=== PATIENT | male | born 1965 | race Caucasian/White ===

== ENCOUNTER 2020-01-31 16:56 | Observation (INO) | payer SELFPAY ==
[2020-01-31 16:57] VITALS: BP 101/66; PULSE 72; RESP 18; TEMP 36.4; O2SAT 98; BMI 25.7
--- NOTE | 2020-01-31 17:10 | PC.NURSE ---
When leaving triage, he told certified paralegal again that he needs a bed right now that nurse was supposed to be finding a bed for him now.
--- NOTE | 2020-01-31 17:25 | XR_ITS ---
WS: [id number] Portable AP upright chest, 01/31/2020 Clinical Data: chest pain Comparison: None. Findings: No nodules, masses or effusions are seen. The heart is normal. The pulmonary vascularity is not increased. No pneumonia or pneumothorax is seen. XR/XR chest 1V portable [id number] Impression: Negative chest.
--- NOTE | 2020-01-31 17:25 | ECG_ITS ---
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 Measurements Intervals [place] Rate: 135 P: [place]: -1 QRS: 72 QRSD: 96 T: 77 QT: 266 QTc: 399 Interpretive Statements ATRIAL FIBRILLATION WITH RAPID VENTRICULAR RESPONSE ABNORMAL RHYTHM ECG No previous ECG available for comparison Electronically Signed On 02-01-2020 19:18:27 CDT by Sally Israel M.D. [email or web address] [email or web address] memorial hospitalChubbies Shortstrihealth [facility].[employer]/store/OM/[id number]
--- NOTE | 2020-01-31 17:45 | ED_ITS ---
HPI - General Adult General: Chief complaint: Nausea/Vomiting/Diarrhea Stated complaint: n/v Time Seen by Provider: 01/31/20 17:44 Source: patient Mode of arrival: ambulatory Limitations: no limitations History of Present Illness: HPI narrative: Patient is a nice 54-year-old male who presents to ED today with a complaint of feeling sweaty, nauseous, and pre- syncopal over the past few days. Patient tells me on Friday he was outside in the heat for a long period of time so when his symptoms began on Friday he initially attributed it to dehydration. Patient states over the weekend anytime he would try to stand up and walk he would become very pre-syncopal (very dizzy/lightheaded/tunnel vision) and have to sit back down. Patient does tell me last night he felt like he had a racing heart rate. Patient has no known past medical history. He takes no prescription medications however does take supplements. Patient has no known cardiac history/history of arrhythmias. Patient denies chest pain, shortness of breath, difficulty breathing. He has not noticed any lower extremity edema, orthopnea, or PND. PCP is Dr. Hillman. Onset (ago): day(s) Associated symptoms: Reports palpitations; Deny chest pain, dyspnea, headache(s), malaise, nausea, rash, syncope or vomiting Review of Systems Const: Denies: fever(s), chills, body aches, fatigue or malaise Eyes: Denies: change in vision, blurry vision, photophobia, floaters or seeing flashes Card: Reports: palpitations, lightheadedness and pre-syncope; Denies: chest pain, irregular heart rhythm, edema, swelling of feet/ankles, syncope, dyspnea on exertion, orthopnea, leg pain with exertion or acrocyanosis Resp: Denies: dyspnea, productive cough, non-productive cough, pain on inspiration, hemoptysis or chest congestion GI: Denies: abdominal pain, nausea, vomiting, heartburn or diarrhea : Denies: flank pain, difficulty urinating, dysuria, urinary frequency, urinary urgency or urinary hesitancy Musc: Denies: neck pain, back pain, extremity pain, extremity swelling or joint pain Skin/Breast: Denies: rash Neuro: Reports: dizziness (upon standing ); Denies: headache(s), numbness in extremities, weakness in extremities or sensory changes PFSH ED PFSH: Social History (Updated 01/31/20 @ 15:04 by Gracia Soto LPN) Smoking and tobacco status: never smoked Alcohol intake: never Physical Exam Const: COMMON NORMALS: no acute distress, average body habitus, patient oriented x3, no limitations, healthy appearing, alert and well nourished ORIENTATION/CONSCIOUSNESS: Yes oriented to person and Yes oriented to place HENMT: COMMON NORMALS: normocephalic and atraumatic HEAD & SCALP: normocephalic and atraumatic Neck/C-Spine: COMMON NORMALS: full ROM, no lymphadenopathy and no meningeal signs Chest: COMMONS NORMALS: normal inspection of the chest and normal palpation of the breasts Resp: COMMON NORMALS: normal respiratory effort Cardio: RATE: tachycardic RHYTHM: abnormal rhythm irregularly irregular GI: COMMON NORMALS: Normal to inspection, nondistended, normoactive bowel sounds present, Soft to palpation, non-tender, No hepatosplenomegaly present and no masses PALPATION: Yes Soft to palpation and Yes No hepatosplenomegaly present Extremity: COMMON NORMALS: normal to inspection, capillary refill normal, no clubbing, cyanosis or edema, no calf tenderness and no pedal edema Neuro: YOVANNY COMA SCALE: document GCS findings Yovanny coma scale eye opening: Spontaneous Yovanny coma scale verbal response: Orientated Yovanny coma scale motor response: Obey commands [place] coma scale total score: 15 COMMON NORMALS: patient oriented x3, CN's II-XII intact bilaterally, moves all extremities, no focal motor deficits, no sensory deficits noted and gait normal SENSORIUM/ORIENTATION: Yes alert, Yes oriented to person and Yes oriented to place MENINGEAL SIGNS: Yes no meningeal signs Skin: COMMON NORMALS: no rashes or lesions noted GENERAL SKIN EXAM: no rashes or lesions noted Course Consultations: Consultation #1: Dr. Villa-accepts patient Vital Signs: Vital signs: Vital Signs Temperature 97.6 F 01/31/20 16:57 Pulse Rate 102 H 01/31/20 19:55 Respiratory Rate 14 01/31/20 19:55 Blood Pressure 96/73 01/31/20 19:55 Pulse Oximetry 96 01/31/20 19:55 MDM - General Adult MDM Narrative: Medical decision making narrative: Patient arrives in atrial fibrillation with RVR with a rate of 135. He was given 10 mg IV Cardizem and converted to normal sinus. We got patient up and ambulated him to the restroom and he immediately began feeling dizzy, weak, nauseous again. Patient's initial troponin is 44 with a negative delta. TSH is mildly elevated at 5.25. He is given elevated d-dimer at 1.99-spoke to hospitalist who would like CTA chest. Liver enzymes are mildly elevated. Unknown if possibly some of patient's supplements could be causing him to have new onset arrhythmia. I have spoken to Dr. Villa who will accept patient. Dr. Adames also has seen patient and agrees with work-up and plan today. Lab Data: Labs: Lab Results 01/31/20 01/31/20 01/31/20 Range/Units 17:35 17:35 17:53 WBC 3.2 L (4.0-10.0) 10^3/ uL RBC 5.74 H (4.1-5.3) 10^6/u L Hgb 17.3 H (11.7-16.6) g/dL Hct 50.9 (42.0-52.0) % MCV 88.7 (80-94) fL MCH 30.1 (28.0-34.0) pg MCHC 34.0 (30.0-36.0) g/dL RDW 12.2 (12.1-15.1) % Plt Count 148 (130-400) 10^3/c mm MPV 10.7 H (7.4-10.4) fL Neut % (Auto) 61.7 % Lymph % (Auto) 24.7 % [place] % (Auto) 13.0 % Eos % (Auto) 0.0 % Baso % (Auto) 0.6 % Neut # (Auto) 1.95 (1.8-7.7) 10^3/u L Lymph # (Auto) 0.8 (0.8-4.8) 10^3/u L [place] # (Auto) 0.4 (0.2-0.9) 10^3/u L Eos # (Auto) 0.0 (0.0-0.8) 10^3/u L Baso # (Auto) 0.0 (0.0-0.1) 10^3/u L Nucleated RBC % (a uto) 0 % Nucleated RBCs # 0.0 /100WBC D-Dimer (0-0.59) ug/mIFE U Sodium 133 L (136-145) mmol/L Potassium 4.0 (3.5-5.1) mmol/L Chloride 96 L (98-107) mmol/L Carbon Dioxide 23 (22-29) mmol/L Anion Gap 18.0 (5-19) BUN 19 (6-20) mg/dL Creatinine 0.9 (0.7-1.2) mg/dL GFR Calculation 87.9 L (90-130) mL/min Glucose 117 H (65-115) mg/dL Calculated Osmolal ity 274 L (285-295) mOsm/k g Calcium 9.5 (8.5-10.5) mg/dL Total Bilirubin 0.5 (0.15-1.2) mg/dL AST 49 H (0-40) U/L ALT 60 H (0-41) U/L Alkaline Phosphata se 71 (40-130) IU/L Troponin T Baselin e 44 H (0-15) ng/L Troponin T 120 Min [place] (0-15) ng/L Delta Troponin T (0-10) ABS# Total Protein 7.1 (6.6-8.7) g/dL Albumin 4.3 (3.5-5.2) g/dL Globulin 2.8 (1.3-4.6) g/dL Lipase 36 (13-60) U/L TSH (0.27-4.20) uIU/ mL Urine Color (Yellow) Urine Appearance (CLEAR) Urine pH (5-7) Ur Specific Gravit y (1.005-1.030) Urine Protein (Negative) Urine Glucose (UA) (Normal) Urine Ketones (Negative) Urine Blood (Negative) Urine Nitrate (Negative) Urine Bilirubin (NEGATIVE) Urine Urobilinogen (Negative) mg/dL Ur Leukocyte Mayra ase (Negative) Urine Opiates Scre en (Negative) ng/mL Ur Barbiturates Sc reen (Negative) ng/mL Ur Phencyclidine S crn (Negative) ng/mL Ur Amphetamines Sc reen (Negative) ng/mL U Benzodiazepines Scrn (Negative) ng/mL Urine Cocaine Scre en (Negative) ng/mL U Marijuana (THC) Screen (Negative) ng/mL 01/31/20 01/31/20 01/31/20 Range/Units 17:53 17:53 19:12 WBC (4.0-10.0) 10^3/ uL RBC (4.1-5.3) 10^6/u L Hgb (11.7-16.6) g/dL Hct (42.0-52.0) % MCV (80-94) fL MCH (28.0-34.0) pg MCHC (30.0-36.0) g/dL RDW (12.1-15.1) % Plt Count (130-400) 10^3/c mm MPV (7.4-10.4) fL Neut % (Auto) % Lymph % (Auto) % [place] % (Auto) % Eos % (Auto) % Baso % (Auto) % Neut # (Auto) (1.8-7.7) 10^3/u L Lymph # (Auto) (0.8-4.8) 10^3/u L [place] # (Auto) (0.2-0.9) 10^3/u L Eos # (Auto) (0.0-0.8) 10^3/u L Baso # (Auto) (0.0-0.1) 10^3/u L Nucleated RBC % (a uto) % Nucleated RBCs # /100WBC D-Dimer 1.99 H (0-0.59) ug/mIFE U Sodium (136-145) mmol/L Potassium (3.5-5.1) mmol/L Chloride (98-107) mmol/L Carbon Dioxide (22-29) mmol/L Anion Gap (5-19) BUN (6-20) mg/dL Creatinine (0.7-1.2) mg/dL GFR Calculation (90-130) mL/min Glucose (65-115) mg/dL Calculated Osmolal ity (285-295) mOsm/k g Calcium (8.5-10.5) mg/dL Total Bilirubin (0.15-1.2) mg/dL AST (0-40) U/L ALT (0-41) U/L Alkaline Phosphata se (40-130) IU/L Troponin T Baselin e (0-15) ng/L Troponin T 120 Min [place] (0-15) ng/L Delta Troponin T (0-10) ABS# Total Protein (6.6-8.7) g/dL Albumin (3.5-5.2) g/dL Globulin (1.3-4.6) g/dL Lipase (13-60) U/L TSH 5.25 H (0.27-4.20) uIU/ mL Urine Color Yellow (Yellow) Urine Appearance Clear (CLEAR) Urine pH 5 (5-7) Ur Specific Gravit y 1.025 (1.005-1.030) Urine Protein Neg (Negative) Urine Glucose (UA) Norm (Normal) Urine Ketones 2+ H (Negative) Urine Blood Neg (Negative) Urine Nitrate Negative (Negative) Urine Bilirubin Neg (NEGATIVE) Urine Urobilinogen Neg (Negative) mg/dL Ur Leukocyte Mayra ase Negative (Negative) Urine Opiates Scre en (Negative) ng/mL Ur Barbiturates Sc reen (Negative) ng/mL Ur Phencyclidine S crn (Negative) ng/mL Ur Amphetamines Sc reen (Negative) ng/mL U Benzodiazepines Scrn (Negative) ng/mL Urine Cocaine Scre en (Negative) ng/mL U Marijuana (THC) Screen (Negative) ng/mL 01/31/20 01/31/20 Range/Units 19:12 19:48 WBC (4.0-10.0) 10^3/ uL RBC (4.1-5.3) 10^6/u L Hgb (11.7-16.6) g/dL Hct (42.0-52.0) % MCV (80-94) fL MCH (28.0-34.0) pg MCHC (30.0-36.0) g/dL RDW (12.1-15.1) % Plt Count (130-400) 10^3/c mm MPV (7.4-10.4) fL Neut % (Auto) % Lymph % (Auto) % [place] % (Auto) % Eos % (Auto) % Baso % (Auto) % Neut # (Auto) (1.8-7.7) 10^3/u L Lymph # (Auto) (0.8-4.8) 10^3/u L [place] # (Auto) (0.2-0.9) 10^3/u L Eos # (Auto) (0.0-0.8) 10^3/u L Baso # (Auto) (0.0-0.1) 10^3/u L Nucleated RBC % (a uto) % Nucleated RBCs # /100WBC D-Dimer (0-0.59) ug/mIFE U Sodium (136-145) mmol/L Potassium (3.5-5.1) mmol/L Chloride (98-107) mmol/L Carbon Dioxide (22-29) mmol/L Anion Gap (5-19) BUN (6-20) mg/dL Creatinine (0.7-1.2) mg/dL GFR Calculation (90-130) mL/min Glucose (65-115) mg/dL Calculated Osmolal ity (285-295) mOsm/k g Calcium (8.5-10.5) mg/dL Total Bilirubin (0.15-1.2) mg/dL AST (0-40) U/L ALT (0-41) U/L Alkaline Phosphata se (40-130) IU/L Troponin T Baselin e (0-15) ng/L Troponin T 120 Min [place] 37.33 H (0-15) ng/L Delta Troponin T -6.67 L (0-10) ABS# Total Protein (6.6-8.7) g/dL Albumin (3.5-5.2) g/dL Globulin (1.3-4.6) g/dL Lipase (13-60) U/L TSH (0.27-4.20) uIU/ mL Urine Color (Yellow) Urine Appearance (CLEAR) Urine pH (5-7) Ur Specific Gravit y (1.005-1.030) Urine Protein (Negative) Urine Glucose (UA) (Normal) Urine Ketones (Negative) Urine Blood (Negative) Urine Nitrate (Negative) Urine Bilirubin (NEGATIVE) Urine Urobilinogen (Negative) mg/dL Ur Leukocyte Mayra ase (Negative) Urine Opiates Scre en Negative (Negative) ng/mL Ur Barbiturates Sc reen Negative (Negative) ng/mL Ur Phencyclidine S crn Negative (Negative) ng/mL Ur Amphetamines Sc reen Negative (Negative) ng/mL U Benzodiazepines Scrn Negative (Negative) ng/mL Urine Cocaine Scre en Negative (Negative) ng/mL U Marijuana (THC) Screen Negative (Negative) ng/mL Discharge Plan Discharge Patient Disposition: Admitted As Inpatient Admit Provider: Jeremiah Villa Clinical Impression: New onset atrial fibrillation, Atrial fibrillation with rapid ventricular response, Elevated LFTs, Elevated troponin Condition: Stable Coding Level of Care Code ED Purchasing Administrative Assistant for Chg Fwd Exam Comprehensive
[2020-01-31 17:49] LABS: Basophils % 0.6 %; Hematocrit 50.9 % (42.0-52.0); Hemoglobin 17.3 g/dL (11.7-16.6); Lymphocytes # 0.8 10^3/uL (0.8-4.8); Lymphocytes % 24.7 %; Mean Corpuscular Hemoglobin 30.1 pg (28.0-34.0); Mean Corpuscular Volume 88.7 fL (80-94); Mean Platelet Volume 10.7 fL (7.4-10.4); Monocytes # 0.4 10^3/uL (0.2-0.9); Neutrophils # 1.95 10^3/uL (1.8-7.7); Neutrophils % 61.7 %; Nucleated Red Blood Cells % 0 %; Platelet Count 148 10^3/cmm (130-400); Red Blood Count 5.74 10^6/uL (4.1-5.3); Red Cell Distribution Width 12.2 % (12.1-15.1); White Blood Count 3.2 10^3/uL (4.0-10.0)
--- NOTE | 2020-01-31 17:53 | ECG_ITS ---
[facility] Test Date: 2020-02-01 Pat Name: Wong Alvarez Department: Room: 101 Gender: Male Unit Control Clerk: BEAU GILB: 1965 Requested By: Frances Ramsey Order Number: [id number] Shanna MD: Sally Israel M.D. Measurements Intervals [place] Rate: 98 P: 51 [place]: 165 QRS: 67 QRSD: 101 T: 71 QT: 318 QTc: 408 Interpretive Statements SINUS RHYTHM Compared to ECG 01/31/2020 19:33:39 Sinus tachycardia no longer present Electronically Signed On 02-01-2020 19:16:53 CDT by Sally Israel M.D. [email or web address].[facility]oo[facility] regional medical centerNew Horizons Entertainmentaultman alliance [facility].[employer]/store/OM/[id number]
[2020-01-31 18:02] VITALS: BP 107/73; PULSE 122; RESP 16; O2SAT 97
[2020-01-31 18:02] LABS: Alanine Aminotransferase 60 U/L (0-41); Albumin Level 4.3 g/dL (3.5-5.2); Alkaline Phosphatase 71 IU/L (40-130); Aspartate Amino Transferase 49 U/L (0-40); Blood Urea Nitrogen 19 mg/dL (6-20); Calcium 9.5 mg/dL (8.5-10.5); Carbon Dioxide 23 mmol/L (22-29); Chloride 96 mmol/L (98-107); Globulin 2.8 g/dL (1.3-4.6); Glomerular Filtration Rate 87.9 mL/min (90-130); Glucose 117 mg/dL (65-115); Lipase 36 U/L (13-60); Osmolality Calculated 274 mOsm/kg (285-295); Sodium 133 mmol/L (136-145); Total Bilirubin 0.5 mg/dL (0.15-1.2); Total Protein 7.1 g/dL (6.6-8.7)
[2020-01-31 18:29] LABS: Thyroid Stimulating Hormone 5.25 uIU/mL (0.27-4.20)
[2020-01-31 18:51] LABS: Troponin(5th) Baseline 44 ng/L (0-15)
--- NOTE | 2020-01-31 18:51 | PC.NURSE ---
Read and agree with assessment
[2020-01-31 19:29] LABS: Add Urine Microscopic? NO
[2020-01-31 19:51] LABS: Bilirubin Urine Neg (NEGATIVE); Blood Urine Neg (Negative); Glucose Urine UA Norm (Normal); Ketones Urine 2+ (Negative); Leukocyte Esterase Urine Negative (Negative); Nitrate Urine Negative (Negative); Protein Urine Neg (Negative); Specific Gravity, Urine 1.025 (1.005-1.030); Urine Appearance Clear (CLEAR); Urine Color Yellow (Yellow); Urobilinogen Urine Neg (Negative); pH Urine 5 (5-7)
--- NOTE | 2020-01-31 19:53 | ECG_ITS ---
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 Measurements Intervals [place] Rate: 100 P: 58 RI: 142 QRS: 74 QRSD: 100 T: 76 QT: 316 QTc: 408 Interpretive Statements SINUS TACHYCARDIA ABNORMAL RHYTHM ECG Compared to ECG 01/31/2020 17:51:07 Atrial fibrillation no longer present Electronically Signed On 02-01-2020 19:18:38 CDT by Sally Israel M.D. [email or web address] beachwood medical centerPagaTuAlquiler/store/OM/[id number]
[2020-01-31 19:55] VITALS: BP 96/73; PULSE 102; RESP 14; O2SAT 96
[2020-01-31 20:03] LABS: Amphetamines Screen Urine Negative (Negative); Barbiturates Screen Urine Negative (Negative); Benzodiazepines Screen Urine Negative (Negative); Cocaine Screen Urine Negative (Negative); Opiate Screen Urine Negative (Negative); PCP Screen Urine Negative (Negative); THC Screen Urine Negative (Negative)
[2020-01-31 20:16] LABS: Troponin 5 2HR 37.33 ng/L (0-15)
[2020-01-31 20:27] LABS: D Dimer 1.99 ug/mIFEU (0-0.59)
--- NOTE | 2020-01-31 20:29 | CTR_ITS ---
PROCEDURE INFORMATION: Exam: CT Angiography Chest With Contrast Exam date and time: 01/31/2020 9:06 PM Age: 54 years old Clinical indication: Abnormal findings; Abnormal diagnostic tests; Elevated d-dimer; Additional info: Palps, positive d-dimer TECHNIQUE: Imaging protocol: Computed tomographic angiography of the chest with intravenous contrast. 3D rendering: MIP and/or 3D reconstructed images were created by the technologist. Radiation optimization: All CT scans at this facility use at least one of these dose optimization techniques: automated exposure control; mA and/or kV adjustment per patient size (includes targeted exams where dose is matched to clinical indication); or iterative reconstruction. Contrast material: OMNI 350; Contrast volume: 77 ml; Contrast route: INTRAVENOUS (IV); COMPARISON: CR XR chest 1V portable [id number] 01/31/2020 6:00 PM RADIATION DOSE METRICS: Total DLP (mGy-cm): 628.74 FINDINGS: Pulmonary arteries: Normal. No pulmonary emboli. Aorta: Unremarkable. No aortic aneurysm. No aortic dissection. Thyroid: There is a 4.5 cm hypodense nodule in the right thyroid lobe. Lungs: Unremarkable. No consolidation. No masses. Pleural space: Unremarkable. No pneumothorax. No pleural effusion. Heart: Unremarkable. No cardiomegaly. No pericardial effusion. Lymph nodes: Unremarkable. No enlarged lymph nodes. Bones/joints: Unremarkable. No acute fracture. Soft tissues: Unremarkable. CT/CT angio chest PE protcl [id number] IMPRESSION: 1. No acute findings. 2. There is a 4.5 cm hypodense nodule in the right thyroid lobe. Evaluate with elective thyroid ultrasound. COMMENTS: Consistent with the [place] [employer]'s Incidental Findings Committee white paper (J Am Parminder Radiol 2015): In patients aged 35 years and older with an incidental thyroid nodule equal to or greater than 1.[address], MRI or extrathyroidal US, further evaluation with dedicated thyroid US is recommended for patients with normal life expectancy and without comorbidities. For smaller nodules without suspicious features, no further evaluation or follow up is recommended. Radiation Dose CTDIVOL = (mGy): DLP = 628.74 (mGy-cm)
[2020-01-31 20:46] LABS: Troponin 5 2HR Delta -6.67 ABS# (0-10)
[2020-01-31] MEDS: iohexol 350 mg/mL 100 mL Btl IV (21:16)
--- NOTE | 2020-01-31 22:29 | PM.HP ---
Providers/Chief Complaint Admitting Physician: Jeremiah Villa Chief Complaint: n/v History of Present Illness Wong Alvarez is a 54 year old gentleman without significant past medical history, who is been working outside quite a bit in the sun, reports he started feeling unwell on Friday, with nausea, chills, sweats, fatigue, generalized aches, felt like he was running a fever, but says none of the thermometers at his home works, so cannot measured a temperature. He reports that on Friday he started having heart racing episodes. Reports that he has history of this occasionally happening in the past, but not persistent. With this he had some mild chest discomfort. In ER he is found to be in atrial flutter, initially 120s-130s, after 10 mg of Cardizem heart rates improved down to low 100s. No chest pain at this time. This is new onset formally diagnosed atrial flutter. Troponin T baseline 44, 2-hour 37.33. EKG otherwise without suspicion of acute NV. He reports his been having sweats, especially somehow triggered by Tylenol. Has not had good appetite due to nausea. Denies taking any ibuprofen. Apart from this is been at baseline state of health, although did get injury from being kicked by a cow in his right thigh subsequently developing a substantial bruise. No wounds or ulcerations. This has been resolving. D-dimer noted elevated in ER. With new onset A. fib, was assessed by CTA without finding of PE, but incidentally noted 4.5 cm nodule in the right thyroid lobe. Otherwise he appears with leukopenia, WBC 3.2, mild hyponatremia 133, normal kalemia, mild liver parameter abnormality AST 49, ALT 60, without known history of liver disease. TSH noted mildly elevated at 5.25. Otherwise no suggestion of infection related pulmonary changes or UTI on UA. He denies having any rashes, but does report having had a number of tick bites recently. He lives at home with his . She has not been ill. Review of Systems Const: Reports: chills, body aches, malaise and night sweats; Denies: fever(s) Eyes: Denies: change in vision or eye redness ENMT: Denies: throat pain, oral sores or ear or mastoid pain Card: Reports: palpitations, irregular heart rhythm and lightheadedness; Denies: chest pain, edema, pre-syncope or dyspnea on exertion Resp: Denies: dyspnea, productive cough, change in phlegm color or hemoptysis GI: Reports: nausea; Denies: abdominal pain, vomiting, diarrhea, constipation, hematochezia or melena : Denies: flank pain, difficulty urinating, urinary frequency or hematuria Musc: Denies: back pain, joint swelling or joint redness Skin/Breast: Denies: rash, sores or new lesions Neuro: Denies: headache(s), numbness in extremities, weakness in extremities, dizziness, confusion or seizure-like activity Endo: Denies: polyuria or polydipsia Khai/Lymph: Denies: easy bleeding or purpura All/Imm: Denies: urticaria, throat swelling or tongue swelling Medications/Allergies Home Medications Medication Instructions Recorded Confirmed Last Taken Type Calcium 500 3 tab PO DAILY 01/31/20 01/31/20 Unknown History Horny Goat [place] 1 tab PO DAILY 01/31/20 01/31/20 Unknown History Tylenol Extra Strength 2 tab PO PRN 01/31/20 01/31/20 01/30/20 History multivitamin [Multiple Vitamins] 2 tab PO DAILY 01/31/20 01/31/20 Unknown History turmeric 800 mg PO DAILY 01/31/20 01/31/20 Unknown History Allergies Allergy/AdvReac Type Severity Reaction Status Date / Time No Known Allergies Allergy Verified 01/31/20 18:06 PFSH Acute PFSH: Surgical History History of appendectomy Family History Father Arrhythmia Social History Smoking and tobacco status: never smoked Alcohol intake: never Substance/Drug Use: never Lives independently: Yes Household members: spouse Marital status: Current occupational status: employed Vitals/I&O/Wt Last Vital Signs Temp 97.6 F 01/31/20 16:57 Pulse 102 H 01/31/20 19:55 Resp 14 01/31/20 19:55 BP 96/73 01/31/20 19:55 Pulse Ox 96 01/31/20 19:55 Weight last 48 hrs Weight 90.718 kg Physical Exam Const: COMMON NORMALS: no acute distress and patient oriented x3 HENMT: COMMON NORMALS: oropharynx normal Neck/C-Spine: COMMON NORMALS: no JVD Resp: COMMON NORMALS: normal respiratory effort and clear to auscultation bilaterally AUSCULTATION: clear to auscultation bilaterally Cardio: COMMON NORMALS: no JVD, regular rhythm, S1 normal heart sound present, S2 normal heart sound present and No murmurs present (Cardio) RATE: tachycardic RHYTHM: regular rhythm HEART SOUNDS: S1 normal heart sound present and S2 normal heart sound present GI: COMMON NORMALS: Normal to inspection, nondistended, normoactive bowel sounds present, Soft to palpation and non-tender PALPATION: Yes Soft to palpation Extremity: COMMON NORMALS: no joint enlargement and no pedal edema Neuro: COMMON NORMALS: patient oriented x3 and moves all extremities Skin: COMMON NORMALS: no rashes or lesions noted GENERAL SKIN EXAM: no rashes or lesions noted Data : 01/31/20 17:35 01/31/20 17:35 A&P Assessment and plan (1) New onset atrial fibrillation: With palpitations described as heart racing starting on Friday after malaise starting on Friday. He reports some history of on and off palpitations in the past, but never formal diagnosis of atrial flutter or fibrillation. Heart rate improved in ER with Cardizem, although blood pressure soft. For now we will start him on 12.5 mg metoprolol twice a day. Discussed also with him risk of CVA secondary to atrial flutter. Overall his risk is not particularly high, and so he is at this time interested in starting aspirin. Encouraged him to discuss again with his primary care provider. At this time monitor on telemetry. There appears to possibly be some thyroid dysfunction as well, with also incidentally noted thyroid nodule. Will add free T3 and T4. Assess TTE. Discussed with him given new onset atrial fibrillation may also benefit from additional assessment for coronary artery disease. So far no suggestion of acute NV. Mild elevation of troponin suspected secondary to atrial fibrillation, but will follow-up complete series to rule out NV. Status: Acute (2) Night sweats: With malaise, reports profuse sweating, especially after Tylenol. Reports he felt like he was having a fever, but was not able to measure it. Reports recently multiple tick bites. Also with transaminitis, hyponatremia. Denies seeing a rash. With history of tick bites will request for tick panel. Discussed with him due to transaminitis will empirically start on doxycycline at this time to which he is agreeable. Secondary to also concomitant fatigue, muscle aches, suspected fever will request testing for COVID-19. Status: Acute (3) Fatigue: As above. We will also request orthostatic blood pressures as he is reported to have more symptoms while trying to get up and walk. Status: Acute (4) Muscle ache: As above. In addition to tick panel, will check rapid flu, COVID-19. Status: Acute (5) Tick bite: Reports history of multiple tick bites. 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 Denies specifically seeing a rash. As above. Recently with malaise, sweats, fatigue, noted with transaminitis, mild leukopenia, hyponatremia. Tick panel sent. Empirically at this time discussed as discussed with him start on doxycycline. Status: Acute (6) Leukopenia: Mild leukopenia, WBC 3.2. As above. Concern for possible tickborne illness. Sent tick panel. Empirically started on doxycycline at this time. Monitor counts. Status: Acute (7) Transaminitis: Mild. As above. Status: Acute (8) Elevated troponin: He has had no chest pain or pressure. No shortness of breath. This is suspected to be mild elevation secondary to arrhythmia. So far without a peak. Follow-up complete troponin EKG series to rule out acute NV. Started aspirin. Will assess lipid profile. A1c. With new onset atrial fibrillation may benefit from additional assessment by stress testing on nonemergent basis. Status: Acute Attestations Medical Necessity Statement*: Place in observation. 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
[2020-01-31] MEDS: metoprolol tartrate 25 mg Tablet 12.5 MG PO (23:33)
[2020-01-31 23:36] VITALS: BP 144/70; PULSE 102; RESP 18; O2SAT 98
[2020-01-31 23:42] VITALS: BP 134/89; PULSE 103; RESP 18; TEMP 37.4; O2SAT 99
[2020-01-31 23:44] VITALS: BP 130/84; PULSE 101; RESP 14; TEMP 37.6; O2SAT 96
[2020-02-01] VITALS (8 sets, daily range): BP systolic 104–144; BP diastolic 70–85; PULSE 87–110; RESP 16–97; TEMP 36.7–37.9; O2SAT 94–100
[2020-02-01 00:04] LABS: Troponin 5 6HR 39.27 ng/L (0-15)
--- NOTE | 2020-02-01 00:06 | USCV_ITS ---
Wong Alvarez Age: 54 Gender: M : 1965 Exam Date: 02/01/2020 10:10 Ordering Phys: Jeremiah Villa MD Technologist: Tierra Rubio Exam Location: [facility] [place] Indication: new onset a fib BP: 118 / 76 HR: 122 Rhythm: Atrial fibrillation Technical Quality: Adequate MEASUREMENTS (Male / Female) Normal Values 2D ECHO LV Diastolic Diameter PLAX 4.5 cm 4.2 - 5.9 / 3.9 - 5.3 cm LV Systolic Diameter PLAX 2.6 cm IVS Diastolic Thickness 1.3 cm 0.6 - 1.0 / 0.6 - 0.9 cm IVS Systolic Thickness 1.6 cm LVPW Diastolic Thickness 1.2 cm 0.6 - 1.0 / 0.6 - 0.9 cm LVPW Systolic Thickness 2.1 cm LVOT Diameter 2.0 cm LV Ejection Fraction 2D Teich 71.5 % LV Ejection Fraction MOD 2C 73.8 % LV Ejection Fraction 2C AL 74.9 % LA Diameter 3.4 cm LA Width 3.2 cm LA Height 4.9 cm RA Width 4.4 cm RA Height 4.8 cm M-MODE LV Diastolic Diameter MM 5.1 cm 4.2 - 5.9 / 3.9 - 5.3 cm LV Systolic Diameter MM 3.3 cm LV Ejection Fraction MM Teich 63.3 % IVS Diastolic Thickness MM 1.3 cm 0.6 - 1.0 / 0.6 - 0.9 cm IVS Systolic Thickness MM 1.5 cm LVPW Diastolic Thickness MM 1.3 cm 0.6 - 1.0 / 0.6 - 0.9 cm LVPW Systolic Thickness MM 2.3 cm Aortic Annulus Diameter 3.6 cm LA Ao Ratio MM 0.9 MV E Point Septal Separation 0.8 cm DOPPLER AV Peak Velocity 129.0 cm/s LVOT Peak Velocity 113.0 cm/s AV Area Cont Eq vti 3.0 cm squared AV Area Cont Eq pk 2.8 cm squared MV Peak Velocity 81.0 cm/s MV Area PHT 4.6 cm squared Mitral E to A Ratio 1.6 MV E' Velocity 9.0 cm/s Mitral E to MV E' Ratio 9.4 Mitral E to LV E' Lateral Ratio 8.7 Mitral E to LV E' Septal Ratio 10.4 TR Peak Velocity 269.0 cm/s TR Peak Gradient 28.9 mmHg Right Atrial Pressure 3.0 mmHg Pulmonary Artery Systolic Pressu 31.9 mmHg PV Peak Velocity 113.0 cm/s RV Acceleration Time 0.1 s FINDINGS Left Ventricle Normal left ventricular size, systolic function and wall thickness, with no regional wall motion abnormalities. Left ventricular ejection fraction is estimated at 61 %. Normal diastolic function. Right Ventricle Normal right ventricular size and systolic function. Right ventricular systolic pressure 31.9 mmHg. Right Atrium Normal right atrial size. Right atrial pressure estimated at 3 mmHg. Left Atrium Normal left atrial size. Mitral Valve Structurally normal mitral valve. No mitral valve stenosis. Trace mitral valve regurgitation. Aortic Valve Aortic valve not well visualized. Mildly thickened aortic valve. No aortic stenosis. No aortic valve regurgitation. Tricuspid Valve Structurally normal tricuspid valve. Trace to mild tricuspid valve regurgitation. Pulmonic Valve Pulmonic valve not well visualized. No pulmonary valve stenosis. Pericardium No pericardial effusion. Aorta Normal sized aortic root. CONCLUSIONS 1. Normal left ventricular size, systolic function and wall thickness, with no regional wall motion abnormalities. Left ventricular ejection fraction is estimated at 61 %. Normal diastolic function. 2. Normal right ventricular size and systolic function. 3. Trace to mild tricuspid valve regurgitation. 4. No prior similar studies to compare. Asya Ferro MD (Electronically Signed) Final Date: 01 February 2020 18:17 S
[2020-02-01 00:08] LABS: Troponin 5 6HR Delta -4.73 ng/L (0-12)
[2020-02-01 00:17] LABS: Influenza A by IFA Negative (Negative); Influenza B by IFA Negative (Negative)
[2020-02-01 00:50] LABS: Estmated Average Glucose 117; Hemoglobin A1C 5.7 % (4.0-6.0)
[2020-02-01] MEDS: heparin 5,000 unit/mL INJ 1 mL 5000 UNIT SUBCUT ×3 (00:54→17:00)
[2020-02-01] MEDS: doxycycline 100 MG in sodium chloride 0.9% (plus) 100 ML IV ×3 (00:54→22:38)
[2020-02-01] MEDS: sodium chloride 0.9% 1,000 ML 100 ML IV ×3 (00:55→22:38)
[2020-02-01 01:11] LABS: Free T4 Free Thyroxine 1.23 ng/dL (0.82-1.77); T3 Free 2.2 PG/ML (2.0-4.4)
[2020-02-01 01:22] LABS: Chol HDL Ratio 7.55 mg/dL (1.0-5.00); Cholesterol 249 mg/dL (0-200); HDL Cholesterol 33 mg/dL (60-100); LDL Cholesterol Calculated 177 mg/dL (50-129); LDL HDL Ratio 5.36 RATIO (0.00-3.22); Triglycerides 196 mg/dL (0-150)
--- NOTE | 2020-02-01 01:33 | PC.NURSE ---
PT ARRIVED TO ROOM 101. PT AMBULATED TO BED. PT WAS IN NSR. HR 98, BP 144/83, SPO2 96%, T 98.1. PT DENIES PAIN AT THIS TIME. PT DOES NOT EAT PORK PRODUCTS. WILL CONTINUE TO MONITOR.
[2020-02-01 04:34] LABS: Basophils % 0.3 %; Eosinophils % 0.3 %; Hematocrit 42.8 % (42.0-52.0); Hemoglobin 14.7 g/dL (11.7-16.6); Lymphocytes # 0.6 10^3/uL (0.8-4.8); Lymphocytes % 20.6 %; Mean Corpuscular HGB Conc 34.3 g/dL (30.0-36.0); Mean Corpuscular Hemoglobin 30.3 pg (28.0-34.0); Mean Corpuscular Volume 88.2 fL (80-94); Monocytes # 0.3 10^3/uL (0.2-0.9); Monocytes % 11.5 %; Neutrophils # 1.93 10^3/uL (1.8-7.7); Neutrophils % 67.3 %; Nucleated Red Blood Cells % 0 %; Platelet Count 124 10^3/cmm (130-400); Red Blood Count 4.85 10^6/uL (4.1-5.3); Red Cell Distribution Width 12.2 % (12.1-15.1); White Blood Count 2.9 10^3/uL (4.0-10.0)
[2020-02-01 04:49] LABS: Alanine Aminotransferase 52 U/L (0-41); Albumin Level 3.7 g/dL (3.5-5.2); Alkaline Phosphatase 63 IU/L (40-130); Anion Gap 13.5 (5-19); Aspartate Amino Transferase 47 U/L (0-40); Blood Urea Nitrogen 19 mg/dL (6-20); Calcium 8.3 mg/dL (8.5-10.5); Carbon Dioxide 23 mmol/L (22-29); Chloride 101 mmol/L (98-107); Globulin 2.3 g/dL (1.3-4.6); Glomerular Filtration Rate 117.5 mL/min (90-130); Glucose 116 mg/dL (65-115); Magnesium 1.9 mg/dL (1.7-2.3); Osmolality Calculated 275 mOsm/kg (285-295); Potassium 3.5 mmol/L (3.5-5.1); Sodium 134 mmol/L (136-145); Total Bilirubin 0.4 mg/dL (0.15-1.2)
[2020-02-01 05:47] LABS: Slide Review Slide Review Perform
--- NOTE | 2020-02-01 06:25 | PC.NURSE ---
PT IS IN PLEASANT MOOD. PT DENIES PAIN AT THIS TIME. WILL GIVE REPORT TO ON COMING NURSE.
[2020-02-01] MEDS: atorvastatin 40 mg Tablet PO (09:53)
[2020-02-01] MEDS: metoprolol tartrate 25 mg Tablet 12.5 MG PO ×2 (09:53→22:44)
[2020-02-01] MEDS: aspirin 325 mg Tablet PO (09:53)
--- NOTE | 2020-02-01 11:16 | PC.CHAP ---
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 visit [] Patient/Family/Request visit [] Outpatient visit [] Follow-up visit [] Physician referral [] Code/Alert [] Routine visit [] Staff referral [] Actively dying [] Patient sleeping [] Family support [] [] Out of room [] Palliative care [] [] Receiving care in room [] Pre-surgical visit [] Trauma [] Long length of stay [] ICU visit [x] Other: covid 19 Relational/Emotional Strength [] Patient feels connected with others/family/visitors/staff [] Distress [] Loneliness/isolation [] Abandonment Spirituality of Patient [] Person of Bobbi [] Attends Denominational of their Bobbi [] Believes in Prayer [] Reads Bible or Anabaptist materials [] There are Spiritual issues to be addressed 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 [] Prayer [] Active listening [] Non-anxious presence [] Spiritual/emotional support [] Crisis/trauma care [] Spiritual counseling [] Bereavement support [] Provided bereavement packet [] Provided Bible/devotional materials [] Provided toy/stuffed animal, coloring book to patient or family member [] Provided Communion [] Anointing/[place] [] Salvation [] Completed spiritual assessment [] Other: Impact on Illness or Injury [] Angry [] Fearful [] Anxious [] Often cries [] Exhaustion [] Unable to work [] Unable to attend taoist [] Unable to walk/stand [] Unable to read [] Unable to drive [] Unable to eat/drink [] Unable to sleep [] Unable to be with family [] Patient intubated [] Other: Summary covid 19 Time spent with patient 5 mins
--- NOTE | 2020-02-01 12:39 | PM.PN ---
Subjective Subjective: Interval history: This morning patient is wondering when he will go home, is wondering about his COVID-19 testing, no fevers, no chills, no shortness of breath, is feeling better, no lightheadedness, no dizziness, states that he frequently has tick bites, does not remember if he has had tick borne fever in the past, no recent travel, no exposure to COVID-19 Vitals/I&O/Wt Last Vital Signs Temp 99.4 F 02/01/20 07:07 Pulse 105 H 02/01/20 07:07 Resp 18 02/01/20 07:07 BP 118/76 02/01/20 07:07 Pulse Ox 97 02/01/20 07:07 01/31/20 02/01/20 02/01/20 22:59 06:59 14:59 Intake Total 100 / 100 1476.667 / 1476.667 Output Total 720 / 720 400 / 400 Balance -620 / -620 1076.667 / 1076.667 Weight last 48 hrs Weight 89.675 kg Weight 90.718 kg Physical Exam Const: COMMON NORMALS: no acute distress and patient oriented x3 HENMT: COMMON NORMALS: normocephalic HEAD & SCALP: normocephalic Neck/C-Spine: COMMON NORMALS: no JVD Resp: COMMON NORMALS: normal respiratory effort, No retractions, No use of accessory muscles and clear to auscultation bilaterally AUSCULTATION: clear to auscultation bilaterally Cardio: COMMON NORMALS: no JVD, regular rate, regular rhythm, S1 normal heart sound present and S2 normal heart sound present RATE: regular rate RHYTHM: regular rhythm HEART SOUNDS: S1 normal heart sound present and S2 normal heart sound present GI: COMMON NORMALS: Normal to inspection, nondistended, normoactive bowel sounds present, Soft to palpation, non-tender, No hepatosplenomegaly present, no masses and no bruits PALPATION: Yes Soft to palpation and Yes No hepatosplenomegaly present Extremity: COMMON NORMALS: capillary refill normal, no clubbing, cyanosis or edema, no calf tenderness and no pedal edema Neuro: COMMON NORMALS: patient oriented x3 Psych: COMMON NORMALS: mental status grossly normal Data : 02/01/20 04:07 02/01/20 04:07 A&P Assessment and plan (1) Tick-borne fever: -Symptoms and exposure sound a lot like trigger point fever -With transaminitis, leukopenia -There is concerns for COVID-19, COVID-19 pending, continue COVID-19 precautions -Currently on doxycycline, continue for 10 days -Tick panel sent Status: Acute (2) Right thyroid nodule: -Seems like cold nodule based on minimally elevated TSH, normal T3-T4 -We will do a thyroid ultrasound - will require outpatient follow-up for biopsy to evaluate for malignancy Status: Acute (3) New onset atrial fibrillation: -Currently normal sinus rhythm -Continue metoprolol 0.5 twice daily -Chads vasc, aspirin daily -We will order cardiac echocardiogram -The question is is is new onset atrial fibrillation related to obstructive CAD, will require cardiac stress testing as outpatient -Certainly on the other hand with his tickborne illness, exposure to take in the past, is possibly he could have Lyme cardiomyopathy, will await cardiac echocardiogram With palpitations described as heart racing starting on Friday after malaise starting on Friday. He reports some history of on and off palpitations in the past, but never formal diagnosis of atrial flutter or fibrillation. Heart rate improved in ER with Cardizem, although blood pressure soft. For now we will start him on 12.5 mg metoprolol twice a day. Discussed also with him risk of CVA secondary to atrial flutter. Overall his risk is not particularly high, and so he is at this time interested in starting aspirin. Encouraged him to discuss again with his primary care provider. At this time monitor on telemetry. There appears to possibly be some thyroid dysfunction as well, with also incidentally noted thyroid nodule. Will add free T3 and T4. Assess TTE. Discussed with him given new onset atrial fibrillation may also benefit from additional assessment for coronary artery disease. So far no suggestion of acute MD. Mild elevation of troponin suspected secondary to atrial fibrillation, but will follow-up complete series to rule out MD. Status: Acute (4) Night sweats: With malaise, reports profuse sweating, especially after Tylenol. Reports he felt like he was having a fever, but was not able to measure it. Reports recently multiple tick bites. Also with transaminitis, hyponatremia. Denies seeing a rash. With history of tick bites will request for tick panel. Discussed with him due to transaminitis will empirically start on doxycycline at this time to which he is agreeable. Secondary to also concomitant fatigue, muscle aches, suspected fever will request testing for COVID-19. Status: Acute (5) Chronic prostatitis: -Patient has significant symptomatology related to chronic prostatitis bacterial versus inflammatory -His UA looks within normal limits on this admission -Patient will need a outpatient follow-up with Dr. Lawrence for cystoscopy, PSA measurement, and evaluation -Hold off on antibiotics for now Status: Acute (6) Fatigue: As above. We will also request orthostatic blood pressures as he is reported to have more symptoms while trying to get up and walk. Status: Acute (7) Muscle ache: As above. In addition to tick panel, will check rapid flu, COVID-19. Status: Acute (8) Tick bite: Reports history of multiple tick bites. 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 Denies specifically seeing a rash. As above. Recently with malaise, sweats, fatigue, noted with transaminitis, mild leukopenia, hyponatremia. Tick panel sent. Empirically at this time discussed as discussed with him start on doxycycline. Status: Acute (9) Leukopenia: Mild leukopenia, WBC 3.2. As above. Concern for possible tickborne illness. Sent tick panel. Empirically started on doxycycline at this time. Monitor counts. Status: Acute (10) Transaminitis: Mild. As above. Status: Acute (11) Elevated troponin: He has had no chest pain or pressure. No shortness of breath. This is suspected to be mild elevation secondary to arrhythmia. So far without a peak. Follow-up complete troponin EKG series to rule out acute MD. Started aspirin. Will assess lipid profile. A1c. With new onset atrial fibrillation may benefit from additional assessment by stress testing on nonemergent basis. 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
--- NOTE | 2020-02-01 17:50 | PC.NURSE ---
Patient c/o of not feeling right again and feeling cold. Patient given second blanket. Rechecked temp & BP. Zofran given for nausea. Patient's dinner tray is untouched.
[2020-02-01] MEDS: ondansetron 2 mg/ML SDV 2 mL 4 MG IVP (17:52)
--- NOTE | 2020-02-01 19:22 | PC.NURSE ---
PT IS RESTING IN BED AT THIS TIME. PT DENIES PAIN AT THIS TIME. SHIFT ASSESSMENT WAS DONE. NS IS RUNNING AT 100ML/HR. WILL CONTINUE TO MONITOR.
[2020-02-01 20:22] LABS: Coronavirus Lab Test PTC Negative
--- NOTE | 2020-02-01 22:39 | PC.NURSE ---
FLUIDS WERE STARTED AT THIS TIME BECAUSE PREVIOUS BAG WASN'T EMPTY UNTIL NOW. WILL CONTINUE TO MONITOR.
--- NOTE | 2020-02-02 00:40 | PC.NURSE ---
PT REFUSED HEPARIN. HOSPITALIST NOTIFIED.
[2020-02-02 04:00] VITALS: BP 109/72; PULSE 95; RESP 18
[2020-02-02 04:09] LABS: Basophils % 0.3 %; Eosinophils % 0.9 %; Hematocrit 39.4 % (42.0-52.0); Hemoglobin 13.3 g/dL (11.7-16.6); Lymphocytes # 1.1 10^3/uL (0.8-4.8); Lymphocytes % 33.8 %; Mean Corpuscular HGB Conc 33.8 g/dL (30.0-36.0); Mean Corpuscular Hemoglobin 29.8 pg (28.0-34.0); Mean Corpuscular Volume 88.3 fL (80-94); Mean Platelet Volume 11.1 fL (7.4-10.4); Monocytes # 0.4 10^3/uL (0.2-0.9); Monocytes % 11.7 %; Neutrophils # 1.73 10^3/uL (1.8-7.7); Neutrophils % 53.3 %; Nucleated Red Blood Cells % 0 %; Platelet Count 130 10^3/cmm (130-400); Red Blood Count 4.46 10^6/uL (4.1-5.3); Red Cell Distribution Width 12.3 % (12.1-15.1); White Blood Count 3.3 10^3/uL (4.0-10.0)
[2020-02-02 04:30] LABS: Alanine Aminotransferase 49 U/L (0-41); Albumin Level 3.2 g/dL (3.5-5.2); Alkaline Phosphatase 64 IU/L (40-130); Anion Gap 10.8 (5-19); Aspartate Amino Transferase 34 U/L (0-40); Blood Urea Nitrogen 12 mg/dL (6-20); Calcium 7.9 mg/dL (8.5-10.5); Carbon Dioxide 25 mmol/L (22-29); Chloride 103 mmol/L (98-107); Globulin 2.6 g/dL (1.3-4.6); Glomerular Filtration Rate 117.5 mL/min (90-130); Glucose 103 mg/dL (65-115); Osmolality Calculated 276 mOsm/kg (285-295); Potassium 3.8 mmol/L (3.5-5.1); Sodium 135 mmol/L (136-145); Total Bilirubin 0.3 mg/dL (0.15-1.2); Total Protein 5.8 g/dL (6.6-8.7)
[2020-02-02 05:31] LABS: Slide Review Slide Review Perform
[2020-02-02] MEDS: sodium chloride 0.9% 1,000 ML 100 ML IV (05:37)
--- NOTE | 2020-02-02 05:40 | PC.NURSE ---
PT IS ANXIOUS TO GO HOME. PT HAD AN UNEVENTFUL NIGHT. PT DENIES PAIN AT THIS TIME. WILL GIVE REPORT TO ON COMING NURSE.
[2020-02-02 07:13] VITALS: BP 101/69; PULSE 75; RESP 16; TEMP 37.3; O2SAT 96
--- NOTE | 2020-02-02 07:54 | US_ITS ---
WS: [id number] ULTRASOUND THYROID TECHNIQUE: Ultrasound of the thyroid. CLINICAL INFORMATION: right thyroid nodule COMPARISON: None. FINDINGS: Thyroid: Right thyroid lobe: 7.4 cm x 3.5 cm x 3.6 cm Large heterogeneous mainly solid appearing right thyroid nodule this measures approximately 7.4 x 3.5 x 4.6 CM. Associated internal vascularity. Recommend further evaluation with ultrasound-guided FNA. Left thyroid lobe: 5.1 cm x 1.7 cm x 2.1 cm. No nodules in the left thyroid Isthmus: 0.4 mm. Cervical lymphadenopathy: None. US/US thyroid [id number] IMPRESSION: Large heterogeneous right thyroid nodule described above. Recommend further etelvina luation with FNA.
--- NOTE | 2020-02-02 08:24 | PC.NURSE ---
Call placed to Dr. Brianne miller. patient having intermittant a fib rate 120-140. Order to give morning dose of metoprolol now.
[2020-02-02] MEDS: atorvastatin 40 mg Tablet PO (08:33)
[2020-02-02] MEDS: metoprolol tartrate 25 mg Tablet 12.5 MG PO (08:33)
[2020-02-02] MEDS: aspirin 325 mg Tablet PO (08:33)
[2020-02-02] MEDS: heparin 5,000 unit/mL INJ 1 mL 5000 UNIT SUBCUT (08:34)
[2020-02-02] MEDS: doxycycline 100 MG in sodium chloride 0.9% (plus) 100 ML IV (10:47)
[2020-02-02 10:59] VITALS: BP 122/78; PULSE 74; RESP 18; TEMP 36.8; O2SAT 97
[2020-02-02 12:00] VITALS: BP 122/78; PULSE 74; RESP 18; TEMP 36.8; O2SAT 97
[2020-02-02 13:15] LABS: Lyme AB Screen <0.90 index
--- NOTE | 2020-02-02 13:19 | P.DS_ITS ---
Discharge Providers Date of Admission: 01/31/20 20:55 Date of Discharge: February 02, 2020 Attending Provider at Admission: Jeremiah Villa Attending Provider at Discharge: Sunshine Decker MD Diagnoses at Discharge Discharge Diagnosis (1) Tick-borne fever: Status: Acute (2) Right thyroid nodule: Status: Acute (3) New onset atrial fibrillation: Status: Acute (4) Night sweats: Status: Acute (5) Chronic prostatitis: Status: Acute (6) Fatigue: Status: Acute (7) Muscle ache: Status: Acute (8) Tick bite: Status: Acute (9) Leukopenia: Status: Acute (10) Transaminitis: Status: Acute (11) Elevated troponin: Status: Acute Reason for Visit Reason for Visit: n/v Discharge Data Data Completed and Pending: Completed Studies During Hospitalization Category Date Time Status CT angio chest PE protcl [id number] Stat Cat Scan 01/31/20 20:29 Completed XR chest 1V addie ble [id number] Urgent Exams 01/31/20 17:25 Completed CV echo complete* [id number] Routine Ultrasound 02/01/20 00:06 Completed [place] thyroid [id number] Routine Ultrasound 02/02/20 07:54 Completed Pending at discharge Category Date Time Status Blood Culture Sta t Lab 02/02/20 12:37 Ordered Complete Blood Co unt w/Auto AM LABS Lab 02/03/20 04:00 Ordered Complete Blood Co unt w/Auto AM LABS Lab 02/04/20 04:00 Ordered Comprehensive Met abolic Panel AM LA BS Lab 02/03/20 04:00 Ordered Tick Panel Routin e Lab 01/31/20 17:35 Received Urine Culture Sta t Lab 02/02/20 12:38 Uncollected Labs from last 24 hours 02/02/20 02/02/20 01/31/20 03:25 03:25 23:45 WBC 3.3 L RBC 4.46 Hgb 13.3 Hct 39.4 L MCV 88.3 MCH 29.8 MCHC 33.8 RDW 12.3 Plt Count 130 MPV 11.1 H Neut % (Auto) 53.3 Lymph % (Auto) 33.8 [place] % (Auto) 11.7 Eos % (Auto) 0.9 Baso % (Auto) 0.3 Neut # (Auto) 1.73 L Lymph # (Auto) 1.1 [place] # (Auto) 0.4 Eos # (Auto) 0.0 Baso # (Auto) 0.0 Nucleated RBC % (a uto) 0 Nucleated RBCs # 0.0 Sodium 135 L Potassium 3.8 Chloride 103 Carbon Dioxide 25 Anion Gap 10.8 BUN 12 Creatinine 0.7 GFR Calculation 117.5 Glucose 103 Calculated Osmolal ity 276 L Calcium 7.9 L Total Bilirubin 0.3 AST 34 ALT 49 H Alkaline Phosphata se 64 Total Protein 5.8 L Albumin 3.2 L Globulin 2.6 Lyme Ab (Western B lot) Nasal/Oral COVID-1 9 PCR Negative E. chaffeensis IgG Ab E. chaffeensis IgM Ab E. chaffeensis Int erp E. chaffeensis Com ment Rickettsia IgG Ab Rickettsia IgM Ab 01/31/20 17:35 WBC RBC Hgb Hct MCV MCH MCHC RDW Plt Count MPV Neut % (Auto) Lymph % (Auto) [place] % (Auto) Eos % (Auto) Baso % (Auto) Neut # (Auto) Lymph # (Auto) [place] # (Auto) Eos # (Auto) Baso # (Auto) Nucleated RBC % (a uto) Nucleated RBCs # Sodium Potassium Chloride Carbon Dioxide Anion Gap BUN Creatinine GFR Calculation Glucose Calculated Osmolal ity Calcium Total Bilirubin AST ALT Alkaline Phosphata se Total Protein Albumin Globulin Lyme Ab (Western B lot) <0.90 Nasal/Oral COVID-1 9 PCR E. chaffeensis IgG Ab Pending E. chaffeensis IgM Ab Pending E. chaffeensis Int erp Pending E. chaffeensis Com ment Pending Rickettsia IgG Ab Pending Rickettsia IgM Ab Pending Vitals: Last Vital Signs Temp 98.2 F 02/02/20 12:00 Pulse 74 02/02/20 12:00 Resp 18 02/02/20 12:00 BP 122/78 02/02/20 12:00 Pulse Ox 97 02/02/20 12:00 Discharge Plan Discharge Patient Disposition: Home, Self-Care Condition: Stable Prescriptions: New metoprolol tartrate 25 mg Tablet 25 mg PO Q12H 30 Days Qty: 60 RF: 0 doxycycline hyclate 100 mg capsule 100 mg PO BID 10 Days Qty: 20 RF: 0 Continued Multiple Vitamins Tablet 2 tab PO DAILY RF: 0 turmeric 400 mg Capsule 800 mg PO DAILY RF: 0 Calcium 500 3 tab PO DAILY RF: 0 Discontinued Horny Goat [place] 1 tab PO DAILY RF: 0 Tylenol Extra Strength 2 tab PO PRN RF: 0 Discharge Orders: Discharge Order (Routine); Ordered 02/02/20 Ordered By: Sunshine Decker Other Ambulatory Orders: [place] 2 week event monitor (Routine) Timeframe: 1 Day Facility: [facility] - Location: Cardiac Diagnostic Laboratory Ordered By: Sunshine Decker Comprehensive Metabolic Panel (Routine) Timeframe: 3 Days Location: Determined by Patient Ordered By: Sunshine Decker Referrals: Juan Hillman DO [Physician] - 1-3 days (hospital discharge follow up ) Bahman Moreno MD [Physician] - 7-10 days (newly diagnosed thyroid nodule) Panda Lawrence MD [Physician] - 2 weeks (reported history of chronic prostatitis) Discharge Diet: Usual diet Discharge Activity: Resume usual activity Discharge Attestations Time Spent in Discharge Care*: greater than 30 min Quality Metrics Clinical Quality Measures During this hospital stay, did patient experience: None Coding Level of Care Code Acute Build Engineer for Chg Fwd Diagnoses Tick-borne fever A93.8 Right thyroid nodule E04.1 New onset atrial fibrillation I48.91 Night sweats R61 Chronic prostatitis N41.1 Fatigue R53.83 Muscle ache M79.10 Tick bite W57.XXXA Leukopenia D72.819 Transaminitis R74.0 Elevated troponin R79.89
[2020-02-02 14:05] VITALS: BP 128/76; PULSE 74; RESP 16; TEMP 36.9; O2SAT 96
--- NOTE | 2020-02-02 15:45 | PC.NURSE ---
Patient taken to [facility] for placement of monitor technician.
--- NOTE | 2020-02-02 15:48 | P.DS_ITS ---
Discharge Providers Date of Admission: 01/31/20 20:55 Date of Discharge: February 02, 2020 Attending Provider at Admission: Jeremiah Villa Attending Provider at Discharge: Sunshine Decker MD Diagnoses at Discharge Discharge Diagnosis (1) Tick-borne fever: Status: Acute (2) Right thyroid nodule: Status: Acute (3) New onset atrial fibrillation: Status: Acute (4) Night sweats: Status: Acute (5) Chronic prostatitis: Status: Acute (6) Fatigue: Status: Acute (7) Muscle ache: Status: Acute (8) Tick bite: Status: Acute (9) Leukopenia: Status: Acute (10) Transaminitis: Status: Acute (11) Elevated troponin: Status: Acute Reason for Visit Reason for Visit: n/v Hospital Course Discharge Summary: Wong Alvarez is a 54 year old gentleman without significant past medical history, reportedly he started feeling unwell on Friday, with nausea, chills, sweats, fatigue, generalized aches, felt like he was running a fever. In the hospital noted to have fever 100.4F tmax, last at 6pm yesterday evening. He reports that on Friday he started having heart racing episodes. Reports that he has history of this occasionally happening in the past, but not persistent. With this he had some mild chest discomfort and nausea. In ER he was found to be in atrial flutter, initially 120s-130s, after 10 mg of Cardizem heart rates improved down to low 100s. No chest pain. This is new onset formally diagnosed atrial flutter. A 2 week event monitor has been arranged on discharge. His [id number] score is currently zero therefore he has not been started on anticoagulation. Troponin T baseline 44, 2-hour 37.33. EKG otherwise without suspicion of acute IL. Echocardiogram without any gross abnormalities. He is on some herbal supplements , including horny goat weed for possible ED. per review of literature, certain additives in this upplement may be associted with arrhythm ias. He is counselled to discontinue this. He is being discharged on 25mg po metoprolol. Continues to be in intermittent A fib, max rate at 120 this morning, at time of discharge this is at 74. Lipid pnael corelated with ASCVD risk score of 8.9%, for which statins are indicated, however this is deferred for now given transaminitis. he is encouraged to f/up with PCP for repeat LFT check and then starting statins if needed. There is concern for possible tick borne illness given transaminitis, leukopenia, for which is empirically receiving doxycycline for 10 days. COVID 19 PCR was negative. Tick panel negative for Lyme, doubt Lyme carditis, especially given a more chronic complaint of intermittent palpitations lasting several months. rest of the tick serology for RMSF and ehrlichiosis remains pending and will need to be followed up. Ideally would have prefferred for patient to be at least 24 hrs fever free prior to discharge home, however he is eager to leave today and given overall clinical stability and overall close follow up planned, this is not totally unreasonable. Of note blood and urine cx were added today to complete w/up and remain pending at this time. Physical Exam Narrative: EXAM NARRATIVE: GEN: Awake, alert and oriented, no acute distress, overall well appearing CVS: S1S2 N RS: CTA B/L Abd: Soft, nt/nd , bs+ DRUPAL ARCHITECT: no focal neuro deficits Discharge Data Data Completed and Pending: Completed Studies During Hospitalization Category Date Time Status CT angio chest PE protcl [id number] Stat Cat Scan 01/31/20 20:29 Completed XR chest 1V addie ble [id number] Urgent Exams 01/31/20 17:25 Completed CV echo complete* [id number] Routine Ultrasound 02/01/20 00:06 Completed US thyroid [id number] Routine Ultrasound 02/02/20 07:54 Completed Pending at discharge Category Date Time Status Blood Culture Sta t Lab 02/02/20 13:24 Results Complete Blood Co unt w/Auto AM LABS Lab 02/03/20 04:00 Ordered Complete Blood Co unt w/Auto AM LABS Lab 02/04/20 04:00 Ordered Comprehensive Met abolic Panel AM LA BS Lab 02/03/20 04:00 Ordered Tick Panel Routin e Lab 01/31/20 17:35 Results Urine Culture Sta t Lab 02/02/20 14:30 Received Labs from last 24 hours 02/02/20 02/02/20 01/31/20 03:25 03:25 23:45 WBC 3.3 L RBC 4.46 Hgb 13.3 Hct 39.4 L MCV 88.3 MCH 29.8 MCHC 33.8 RDW 12.3 Plt Count 130 MPV 11.1 H Neut % (Auto) 53.3 Lymph % (Auto) 33.8 [place] % (Auto) 11.7 Eos % (Auto) 0.9 Baso % (Auto) 0.3 Neut # (Auto) 1.73 L Lymph # (Auto) 1.1 [place] # (Auto) 0.4 Eos # (Auto) 0.0 Baso # (Auto) 0.0 Nucleated RBC % (a uto) 0 Nucleated RBCs # 0.0 Sodium 135 L Potassium 3.8 Chloride 103 Carbon Dioxide 25 Anion Gap 10.8 BUN 12 Creatinine 0.7 GFR Calculation 117.5 Glucose 103 Calculated Osmolal ity 276 L Calcium 7.9 L Total Bilirubin 0.3 AST 34 ALT 49 H Alkaline Phosphata se 64 Total Protein 5.8 L Albumin 3.2 L Globulin 2.6 Lyme Ab (Western B lot) Nasal/Oral COVID-1 9 PCR Negative E. chaffeensis IgG Ab E. chaffeensis IgM Ab E. chaffeensis Int erp E. chaffeensis Com ment Rickettsia IgG Ab Rickettsia IgM Ab 01/31/20 17:35 WBC RBC Hgb Hct MCV MCH MCHC RDW Plt Count MPV Neut % (Auto) Lymph % (Auto) [place] % (Auto) Eos % (Auto) Baso % (Auto) Neut # (Auto) Lymph # (Auto) [place] # (Auto) Eos # (Auto) Baso # (Auto) Nucleated RBC % (a uto) Nucleated RBCs # Sodium Potassium Chloride Carbon Dioxide Anion Gap BUN Creatinine GFR Calculation Glucose Calculated Osmolal ity Calcium Total Bilirubin AST ALT Alkaline Phosphata se Total Protein Albumin Globulin Lyme Ab (Western B lot) <0.90 Nasal/Oral COVID-1 9 PCR E. chaffeensis IgG Ab Pending E. chaffeensis IgM Ab Pending E. chaffeensis Int erp Pending E. chaffeensis Com ment Pending Rickettsia IgG Ab Pending Rickettsia IgM Ab Pending Vitals: Last Vital Signs Temp 98.5 F 02/02/20 14:05 Pulse 74 02/02/20 14:05 Resp 16 02/02/20 14:05 BP 128/76 02/02/20 14:05 Pulse Ox 96 02/02/20 14:05 Discharge Plan Discharge Patient Disposition: Home, Self-Care Condition: Stable Prescriptions: New metoprolol tartrate 25 mg Tablet 25 mg PO Q12H 30 Days Qty: 60 RF: 0 doxycycline hyclate 100 mg capsule 100 mg PO BID 10 Days Qty: 20 RF: 0 Zofran 4 mg tablet 4 mg PO Q8H PRN (Reason: nausea and vomiting) 5 Days Qty: 14 RF: 0 Continued Multiple Vitamins Tablet 2 tab PO DAILY RF: 0 turmeric 400 mg Capsule 800 mg PO DAILY RF: 0 Calcium 500 3 tab PO DAILY RF: 0 Discontinued Horny Goat [place] 1 tab PO DAILY RF: 0 Tylenol Extra Strength 2 tab PO PRN RF: 0 Discharge Orders: Discharge Order (Routine); Ordered 02/02/20 Ordered By: Sunshine Decker Other Ambulatory Orders: Comprehensive Metabolic Panel (Routine) Timeframe: 3 Days Location: Determined by Patient Ordered By: Sunshine Decker Referrals: Juan Hillman DO [Physician] - 1-3 days (You have an follow-up with Dr. Hillman on February 06 at 9:00A.M. If you have any questiosn or need to reschedule. Please call ) Panda Lawrence MD [Physician] - 2 weeks (You have an appointment with Dr. Lawrence on February 22 at 7:30A.M. If you have any questions or need to reschedule. Please call ) Bahman Moreno MD [Physician] - 7-10 days (You have an appointment with Dr. Moreno on February 27 at 10:00A.M. if you have any questions or need to reschedule. Please call ) Asya Ferro MD [Physician] - (You will be fitted with an 2 week Event Moniter at [facility] today after discharge. ) Discharge Diet: Usual diet Discharge Activity: Resume usual activity Patient Instructions: Metoprolol (By mouth), Doxycycline (By mouth), Atrial Fibrillation (DC) Discharge Attestations Time Spent in Discharge Care*: greater than 30 min Specific Discharge Activities: Specific discharge activities: educating patient and evaluating patient/reviewing data Quality Metrics Clinical Quality Measures During this hospital stay, did patient experience: None Coding Level of Care Code Acute Cotton Factor for Chg Fwd Diagnoses Tick-borne fever A93.8 Right thyroid nodule E04.1 New onset atrial fibrillation I48.91 Night sweats R61 Chronic prostatitis N41.1 Fatigue R53.83 Muscle ache M79.10 Tick bite W57.XXXA Leukopenia D72.819 Transaminitis R74.0 Elevated troponin R79.89
[2020-02-06 15:50] LABS: E. Chaffeensis AB IGG <1:64; E. Chaffeensis AB IGM <1:20
[2020-02-07 22:11] LABS: RMSF IGG DETECTED; RMSF IGM NOT DETECTED
== END 2020-02-02 15:45 | disposition home or self-care (01) ==
LOC: ER 17:44 → CSU 21:20
PROVIDERS: Emergency Medicine; Family Medicine; Physician Assistant; Admitting Provider Internal Medicine; Visit Provider Student in an Organized Health Care Education/Training Program
DX: I48.91 Unspecified atrial fibrillation (principal); R61 Generalized hyperhidrosis; R53.83 Other fatigue; M79.10 Myalgia, unspecified site; T14.8XXA Other injury of unspecified body region, initial encounter; D72.819 Decreased white blood cell count, unspecified; R74.0 Nonspecific elevation of levels of transaminase and lactic acid dehydrogenase [LDH]; R79.89 Other specified abnormal findings of blood chemistry; E04.1 Nontoxic single thyroid nodule
CPT/HCPCS: 12345; 36415; 71045; 71275; 76536; 80053; 80061; 80306; 81003; 83036; 83690; 83735; 84439; 84443; 84481; 84484; 85025; 85378; 86618; 86666; 86757; 87040; 87086; 87635; 87804; 93005; 93306; 96361; 96365; 96366; 96372; 96375; 99284; 99285; G0378; J1644; J2405; J3490; J7030; Q9967

== ENCOUNTER → 2020-02-23 08:44 | Outpatient (BNVA) | payer SELFPAY | PROVIDERS: PCP Family Medicine; Visit Provider Urology | DX: N41.1 Chronic prostatitis (principal); R82.71 Bacteriuria | CPT/HCPCS: 80053; 81001 ==

== ENCOUNTER 2020-03-02 00:07 | Emergency (ER) | payer SELFPAY ==
[2020-03-02 00:18] VITALS: BP 138/78; PULSE 90; RESP 18; TEMP 37; O2SAT 95; BMI 24.3
--- NOTE | 2020-03-02 00:19 | W.ED.SKABFB ---
HPI - Skin/Abscess/Foreign Bdy General: Chief complaint: Skin/Abscess/Foreign Body Stated complaint: rash Time Seen by Provider: 03/02/20 00:19 Source: patient Mode of arrival: ambulatory Limitations: no limitations History of Present Illness: HPI narrative: 54-year-old male patient comes in with a generalized urticarial rash. Patient was on Bactrim for prostatitis for about 6 days and then yesterday he started breaking out with a urticarial rash. Patient saw Navdeep Miller in the urgent care and was told to stop the Bactrim and talk to Dr. Lawrence about new medication. Patient was given a dose of Decadron and given prednisone to take for the next 5 days. Patient comes in tonight due to increased break out from the rash. Review of Systems General: Reports: 10 or more systems reviewed and unremarkable except in HPI and below Skin/Breast: Reports: rash and pruritus PFS ED PFSH: Surgical History History of appendectomy Family History Father , at age 95 Arrhythmia Mother , at age 82 Heart disease Social History Smoking and tobacco status: never smoked Alcohol intake: never Lives independently: Yes Household members: spouse Marital status: Current occupational status: employed History of recent travel: No Physical Exam Const: COMMON NORMALS: no acute distress and patient oriented x3 GENERAL APPEARANCE: cooperative HENMT: COMMON NORMALS: normocephalic, TM's normal bilaterally and Normal external nose present HEAD & SCALP: normal to inspection and normocephalic NOSE: Normal external nose present TYMPANIC MEMBRANE: TM's normal bilaterally MOUTH: Normal oral and palatal mucosa present THROAT: posterior oropharynx normal Eye: GENERAL EYE: appearance normal, both eyes and all related structures Neck/C-Spine: COMMON NORMALS: full ROM Lymph: LYMPHATIC: no lymphadenopathy noted Chest: COMMONS NORMALS: normal inspection of the chest Resp: COMMON NORMALS: normal respiratory effort EFFORT & INSPECTION: Yes able to speak in complete sentences Cardio: COMMON NORMALS: regular rate and regular rhythm RATE: regular rate RHYTHM: regular rhythm GI: COMMON NORMALS: non-tender Back/Pelvis: COMMON NORMALS: thoracic and lumbar spine normal to inspection Extremity: COMMON NORMALS: normal to inspection Neuro: COMMON NORMALS: patient oriented x3 and moves all extremities Psych: COMMON NORMALS: mental status grossly normal and cooperative Skin: NARRATIVE SKIN EXAM: Urticaria generalized Course Vital Signs: Vital signs: Vital Signs Temperature 98.6 F 03/02/20 00:18 Pulse Rate 76 03/02/20 01:06 Respiratory Rate 16 03/02/20 01:06 Blood Pressure 112/72 03/02/20 01:06 Pulse Oximetry 98 03/02/20 01:06 MDM - Skin/Abscess/Foreign Bdy MDM Narrative: Medical decision making narrative: Patient comes in today with complaints of urticarial rash. Lungs are clear to auscultation. Abdomen soft nontender. Skin is warm and dry. Vital signs are normal. Differential diagnosis includes but not limited to allergic reaction, anaphylaxis, urticaria. Respirations are even and lungs are clear to auscultation without any signs of severe illness. No signs of anaphylaxis is noted. Reviewed exam with patient recommendations for further treatment and follow-up. Patient reports understanding agreed to plan. Discharge Plan Discharge Patient Disposition: Home Clinical Impression: Urticaria Condition: Stable Prescriptions: New cetirizine 10 mg tablet 10 mg PO BID Qty: 20 RF: 0 famotidine 40 mg tablet 40 mg PO BID Qty: 20 RF: 0 No Action sulfamethoxazole-trimethoprim 800-160 mg tablet 1 tab PO BID Qty: 60 RF: 2 prednisone 10 mg tablet 30 mg PO DAILY 5 Days Qty: 15 RF: 0 Multiple Vitamins Tablet 2 tab PO DAILY RF: 0 turmeric 400 mg Capsule 800 mg PO DAILY RF: 0 Calcium 500 3 tab PO DAILY RF: 0 metoprolol tartrate 25 mg Tablet 25 mg PO Q12H 30 Days Qty: 60 RF: 0 Referrals: Juan Hillman DO [Primary Care Provider] - Discharge Diet: Usual diet Discharge Activity: Increase activity as tolerated Patient Instructions: Urticaria (ED) Activity Restrictions/Additional Instructions: Drink plenty of water with medication. Take medications as directed. Avoid extreme temperature such as real hot baths or real cold showers as this may exacerbate the rash. Avoid really spicy foods or acidic foods as these types of foods may again exacerbate the rash. It will take up to 7 days for the antibiotic to clear your body during that time your body may be hypersensitive and break out in hives for minor irritations. Take your medication as ordered to help control the outbreaks of hives. Use Benadryl 1 or 2 tablets as needed for breakthrough rash. Continue to talk with Dr. Lawrence regarding other antibiotic for the use of your prostatitis. Return to the emergency department for high fever or new concerns. Coding Level of Care Code ED Credit Operations Specialist for [place]illi [place] Exam Comprehensive
[2020-03-02] MEDS: diphenhydrAMINE 50 mg/mL SDV 1mL IVP (00:41)
[2020-03-02] MEDS: famotidine 20 mg/2 mL INJ 40 MG IVP (00:46)
[2020-03-02 01:06] VITALS: BP 112/72; PULSE 76; RESP 16; O2SAT 98
== END 2020-03-02 01:18 | disposition home or self-care (01) ==
PROVIDERS: Emergency Provider Nurse Practitioner Family; PCP Family Medicine
DX: L50.9 Urticaria, unspecified (principal)
CPT/HCPCS: 12345; 96374; 96375; 99282; 99283; J1200; J2930; J3490

== ENCOUNTER 2020-10-26 23:59 | Observation (INO) | payer SELFPAY ==
[2020-10-27] VITALS (11 sets, daily range): BP systolic 94–137; BP diastolic 62–95; PULSE 61–125; RESP 13–18; TEMP 36.3–37.1; O2SAT 96–100; BMI 24.9
--- NOTE | 2020-10-27 00:11 | XR_ITS ---
WS: [id number] PORTABLE CHEST HISTORY: Acute onset chest pain. COMPARISON: 01/31/2020 Lungs are clear and well expanded. No pleural effusion or pneumothorax. Cardiac size: Normal. Mediastinum/Aorta: Mild atherosclerosis aorta. No osseous abnormality seen. XR/XR chest 1V portable [id number] IMPRESSION: Partially calcified thoracic aorta.
[2020-10-27] MEDS: sodium chloride 0.9% 1,000 ML 999 ML IV ×2 (00:19→01:32)
--- NOTE | 2020-10-27 00:26 | ED_ITS ---
HPI - Arrhythmia/Palpitations General: Chief Complaint: Arrhythmia/Palpitations Stated Complaint: STATES ARRYTHMIA/HAS HX Time Seen by Provider: 10/27/20 00:08 Source: patient Mode of arrival: ambulatory Limitations: no limitations History of Present Illness: HPI narrative: 55-year-old male states that he woke up feeling like his heart was racing. He denies any chest pain or fever or shortness of breath. He states that he just is having extreme tachycardia. His heart rate here is in the 150s and is A. fib with RVR. He states he had a short period of A. fib a year ago when he had taken fever but it resolved spontaneously. He is not on any rate control or blood thinners. He denies any recent illnesses. Associated symptoms: Deny nausea or vomiting Review of Systems Const: Denies: fever(s), chills, body aches or change in appetite Eyes: Denies: blurry vision or eye discomfort ENMT: Denies: throat pain or dental pain Card: Reports: palpitations; Denies: chest pain Resp: Denies: dyspnea GI: Denies: abdominal pain, nausea, vomiting or diarrhea : Denies: dysuria Musc: Denies: neck pain or back pain Skin/Breast: Denies: rash Neuro: Denies: headache(s) Psych: Denies: depression Khai/Lymph: Denies: easy bruising All/Imm: Denies: urticaria PFSH ED PFSH: Surgical History History of appendectomy Family History Father , at age 95 Arrhythmia Mother , at age 82 Heart disease Social History Smoking and tobacco status: never smoked Alcohol intake: never Lives independently: Yes Household members: spouse Marital status: Current occupational status: employed History of recent travel: No Physical Exam Const: COMMON NORMALS: no acute distress, patient oriented x3 and healthy appearing HENMT: COMMON NORMALS: normocephalic and atraumatic HEAD & SCALP: normocephalic and atraumatic Eye: COMMON NORMALS: Equal, round and reactive pupils present and EOMs intact bilaterally PUPIL: Yes Equal, round and reactive pupils present Neck/C-Spine: COMMON NORMALS: full ROM and supple Chest: COMMONS NORMALS: normal inspection of the chest and normal palpation of entire chest wall Resp: COMMON NORMALS: normal respiratory effort, No retractions, No use of accessory muscles and clear to auscultation bilaterally AUSCULTATION: clear to auscultation bilaterally Cardio: COMMON NORMALS: No murmurs present (Cardio) RATE: tachycardic RHYTHM: abnormal rhythm irregularly irregular GI: COMMON NORMALS: Normal to inspection, nondistended, normoactive bowel sounds present, Soft to palpation, non-tender and no masses PALPATION: Yes Soft to palpation Extremity: COMMON NORMALS: normal to inspection and full ROM Neuro: COMMON NORMALS: patient oriented x3, moves all extremities and no focal motor deficits Psych: COMMON NORMALS: mental status grossly normal, Normal thought process present and cooperative THOUGHT PROCESS: Normal thought process present Skin: COMMON NORMALS: no rashes or lesions noted and no wounds GENERAL SKIN EXAM: no rashes or lesions noted Course Vital Signs: Vital signs: Vital Signs Temperature 98.3 F 10/27/20 00:10 Pulse Rate 93 10/27/20 00:57 Respiratory Rate 14 10/27/20 00:57 Blood Pressure 137/81 10/27/20 00:57 Pulse Oximetry 97 10/27/20 00:57 MDM - Arrhythmia/Palpitations MDM Narrative: Medical decision making narrative: Patient presents here with new onset A. fib with RVR. Patient's heart rate was initially in the 160s and currently is in the 90s on a Cardizem drip. He has no chest pain. He has no signs of pulmonary [place]. I spoke to hospitalist and will admit patient to the cardiac stepdown unit. Lab Data: Labs: Lab Results 10/27/20 10/27/20 10/27/20 Range/Units 00:17 00:34 00:34 WBC 7.0 (4.0-10.0) 10^3/ uL RBC 5.62 H (4.1-5.3) 10^6/u L Hgb 17.0 H (11.7-16.6) g/dL Hct 49.4 (42.0-52.0) % MCV 87.9 (80-94) fL MCH 30.2 (28.0-34.0) pg MCHC 34.4 (30.0-36.0) g/dL RDW 12.1 (12.1-15.1) % Plt Count 218 (130-400) 10^3/c mm MPV 10.7 H (7.4-10.4) fL Neut % (Auto) 44.2 % Lymph % (Auto) 44.6 % [place] % (Auto) 9.4 % Eos % (Auto) 1.3 % Baso % (Auto) 0.4 % Neut # (Auto) 3.07 (1.8-7.7) 10^3/u L Lymph # (Auto) 3.1 (0.8-4.8) 10^3/u L [place] # (Auto) 0.7 (0.2-0.9) 10^3/u L Eos # (Auto) 0.1 (0.0-0.8) 10^3/u L Baso # (Auto) 0.0 (0.0-0.1) 10^3/u L Nucleated RBC % (a uto) 0 % Nucleated RBCs # 0.0 /100WBC PT 12.40 (12.1-14.9) SECO NDS INR 0.90 (0.8-1.2) Sodium 139 (136-145) mmol/L Potassium 3.4 L (3.5-5.1) mmol/L Chloride 105 (98-107) mmol/L Carbon Dioxide 26 (22-29) mmol/L Anion Gap 11.4 (5-19) BUN 17 (6-20) mg/dL Creatinine 0.7 (0.7-1.2) mg/dL GFR Calculation 117.1 (90-130) mL/min Glucose 136 H (65-115) mg/dL Calculated Osmolal ity 292 (285-295) mOsm/k g Calcium 8.9 (8.5-10.5) mg/dL Total Bilirubin 0.3 (0.15-1.2) mg/dL AST 22 (0-40) U/L ALT 28 (0-41) U/L Alkaline Phosphata se 86 (40-130) IU/L Total Protein 6.6 (6.6-8.7) g/dL Albumin 4.3 (3.5-5.2) g/dL Globulin 2.3 (1.3-4.6) g/dL EKG Data^: EKG 1: Attestation: I personally reviewed and interpreted this EKG as follows: EKG interpretation date: 10/27/20 EKG interpretation time: 00:07 Interpretation: afib with rvr hr [address] or t wave abnormalities qrs 107 qtc 364 Critical Care Time Critical Care Time: Critical Care Time: Yes Total Critical Care Time: 35 Attestation: This case had a high probability of a clinically significant, sudden, or life threatening deterioration of this patient's condition which required my full and direct attention, intervention and personal management. Discharge Plan Discharge Patient Disposition: Admitted As Inpatient Clinical Impression: Atrial fibrillation with rapid ventricular response Condition: Stable Coding Level of Care Code ED Compound Machine Operator for Chg Fwd Exam Comprehensive
[2020-10-27 00:37] LABS: Basophils % 0.4 %; Eosinophils # 0.1 10^3/uL (0.0-0.8); Eosinophils % 1.3 %; Hematocrit 49.4 % (42.0-52.0); Lymphocytes # 3.1 10^3/uL (0.8-4.8); Lymphocytes % 44.6 %; Mean Corpuscular HGB Conc 34.4 g/dL (30.0-36.0); Mean Corpuscular Hemoglobin 30.2 pg (28.0-34.0); Mean Corpuscular Volume 87.9 fL (80-94); Mean Platelet Volume 10.7 fL (7.4-10.4); Monocytes # 0.7 10^3/uL (0.2-0.9); Monocytes % 9.4 %; Neutrophils # 3.07 10^3/uL (1.8-7.7); Neutrophils % 44.2 %; Nucleated Red Blood Cells % 0 %; Platelet Count 218 10^3/cmm (130-400); Red Blood Count 5.62 10^6/uL (4.1-5.3); Red Cell Distribution Width 12.1 % (12.1-15.1)
[2020-10-27 00:59] LABS: Alanine Aminotransferase 28 U/L (0-41); Albumin Level 4.3 g/dL (3.5-5.2); Alkaline Phosphatase 86 IU/L (40-130); Anion Gap 11.4 (5-19); Aspartate Amino Transferase 22 U/L (0-40); Blood Urea Nitrogen 17 mg/dL (6-20); Calcium 8.9 mg/dL (8.5-10.5); Carbon Dioxide 26 mmol/L (22-29); Chloride 105 mmol/L (98-107); Globulin 2.3 g/dL (1.3-4.6); Glomerular Filtration Rate 117.1 mL/min (90-130); Glucose 136 mg/dL (65-115); Osmolality Calculated 292 mOsm/kg (285-295); Potassium 3.4 mmol/L (3.5-5.1); Sodium 139 mmol/L (136-145); Total Bilirubin 0.3 mg/dL (0.15-1.2); Total Protein 6.6 g/dL (6.6-8.7)
--- NOTE | 2020-10-27 01:18 | PM.HP ---
Providers/Chief Complaint Primary Care Provider: Juan Hillman DO Chief Complaint: STATES ARRYTHMIA/HAS HX History of Present Illness Wong Alvarez is a 55 year old male with history of thyroid nodule was diagnosed with atrial fibrillation in January of last year, secondary to low risk he was not put on any AV harsh blocking agent or chronic anticoagulation, his Holter monitoring reading revealed baseline sinus rhythm however A. fib RVR detected with tachyarrhythmia, he also had a tick bite for which she was treated with doxycycline in the past, 1 month ago he was prescribed azithromycin and methylprednisone/Medrol pack for sore throat/bronchitis presenting today with chief complaint of palpitations. Patient woke up from sleep yesterday night. Patient is stating that because of worsening of palpitations he decided to come to the hospital. He is denying chest pain, fever, sinus infection, nausea, vomiting, diarrhea. He is very active for his age does not smoke or drink alcohol. Diagnostics in the ER revealed A. fib RVR, potassium 3.4 I have requested magnesium level and D-dimer he was saturating well on room air, on presentation A. fib RVR heart rate 160 which improved after Cardizem bolus current heart rate fluctuated between 100-1 10 patient not complaining of active palpitation Review of Systems Const: Denies: fever(s) Eyes: Denies: change in vision ENMT: Denies: throat pain Card: Reports: palpitations and irregular heart rhythm; Denies: chest pain Resp: Denies: dyspnea GI: Denies: abdominal pain : Denies: flank pain Musc: Denies: neck pain Skin/Breast: Denies: rash Neuro: Denies: headache(s) Psych: Denies: anxiety Endo: Denies: polyuria Khai/Lymph: Denies: easy bruising All/Imm: Denies: urticaria Medications/Allergies Home Medications Medication Instructions Recorded Confirmed Last Taken Type Multiple Vitamins 2 tab PO DAILY 01/31/20 03/06/20 Unknown History azithromycin 250 mg tablet See Rx Instructions PO .COMPLEX #6 09/29/20 09/29/20 Unknown Rx tab cetirizine 10 mg tablet 10 mg PO DAILY 09/29/20 09/29/20 Unknown History diphenhydramine HCl 25 mg capsule 25 mg PO TID PRN 09/29/20 09/29/20 Unknown History methylprednisolone 4 mg tablets in See Rx Instructions PO PER PKG DIR 09/29/20 09/29/20 Unknown Rx a dose pack #21 ea Allergies Allergy/AdvReac Type Severity Reaction Status Date / Time sulfamethoxazole Allergy Severe algy-hives Verified 10/27/20 00:14 [From Bactrim] trimethoprim [From Bactrim] Allergy Severe algy-hives Verified 10/27/20 00:14 PFSH Acute PFSH: Medical History Chronic prostatitis No pertinent past medical history Right thyroid nodule Tick bite Surgical History History of appendectomy Family History Father , at age 95 Arrhythmia Mother , at age 82 Heart disease Social History Smoking and tobacco status: never smoked Alcohol intake: never Lives independently: Yes Household members: spouse Marital status: Current occupational status: employed History of recent travel: No Vitals/I&O/Wt Last Vital Signs Temp 98.3 F 10/27/20 00:10 Pulse 93 10/27/20 00:57 Resp 14 10/27/20 00:57 BP 137/81 10/27/20 00:57 Pulse Ox 97 10/27/20 00:57 Weight last 48 hrs Weight 87.997 kg Physical Exam Narrative: EXAM NARRATIVE: Middle-age male currently laying comfortably in his bed Has facial flushing Appropriate grooming A. fib RVR S1, S2 variable no murmur appreciated Abdomen soft nontender bowel sound present Bilateral breath sounds without adventitious rhonchi or crackles Lower extremity no edema gangrene or ulcer Abdomen is soft, bowel sound present No neurological deficits EOMI, PERRLA No skin changes other than facial flushing No joint swelling Data : 10/27/20 00:17 10/27/20 00:34 A&P Assessment and plan (1) New onset atrial fibrillation: New onset A. fib with RVR Will request echo, follow-up with TSH D-dimer and magnesium level Jordy vas score is 1, I will start him on high-dose aspirin and continue on Cardizem drip at 5 mg/h Less likely to have PE no signs of sepsis recently he had bronchitis/upper airway infection for which she required Z-Elbert and prednisone No signs of ACS, no active chest pain orthopnea PND Status: Acute (2) Hypokalemia: Potassium repleted follow-up with magnesium level Status: Acute Attestations Medical Necessity Statement*: Anticipating discharge in less than 48 hours will need Cardizem drip overnight for rate control for new onset A. fib RVR Time Spent in Patient Care: (>than 50% of time spent in counselling and/or direct pt care on unit). 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
[2020-10-27] MEDS: ondansetron 2 mg/ML SDV 2 mL 4 MG IVP (01:32)
[2020-10-27 01:39] LABS: Troponin(5th) Baseline 12 ng/L (0-15)
[2020-10-27 02:04] LABS: Thyroid Stimulating Hormone 2.48 uIU/mL (0.27-4.20)
--- NOTE | 2020-10-27 02:04 | USCV_ITS ---
Wong Alvarez Age: 55 Gender: M : 1965 Exam Date: 10/27/2020 06:20 Ordering Phys: Sally Good MD Technologist: Kirit Ricks Exam Location: [facility] [place] Indication: AFIB W RVR BP: 96 / 96 HR: 96 Rhythm: Atrial fibrillation Technical Quality: Adequate MEASUREMENTS (Male / Female) Normal Values 2D ECHO LV Diastolic Diameter PLAX 4.3 cm 4.2 - 5.9 / 3.9 - 5.3 cm LV Systolic Diameter PLAX 2.5 cm IVS Diastolic Thickness 1.1 cm 0.6 - 1.0 / 0.6 - 0.9 cm IVS Systolic Thickness 1.1 cm LVPW Diastolic Thickness 1.0 cm 0.6 - 1.0 / 0.6 - 0.9 cm LVPW Systolic Thickness 1.4 cm LVOT Diameter 2.0 cm LV Ejection Fraction 2D Teich 74.6 % LV Ejection Fraction MOD 2C 64.4 % LV Ejection Fraction 2C AL 64.4 % LA Diameter 3.2 cm LA Width 3.4 cm LA Height 4.1 cm RA Width 3.2 cm RA Height 4.1 cm M-MODE LV Diastolic Diameter MM 5.1 cm 4.2 - 5.9 / 3.9 - 5.3 cm LV Systolic Diameter MM 3.6 cm LV Ejection Fraction MM Teich 56.8 % IVS Diastolic Thickness MM 0.9 cm 0.6 - 1.0 / 0.6 - 0.9 cm IVS Systolic Thickness MM 1.2 cm LVPW Diastolic Thickness MM 1.1 cm 0.6 - 1.0 / 0.6 - 0.9 cm LVPW Systolic Thickness MM 1.9 cm RV Diastolic Diameter MM 1.8 cm Aortic Annulus Diameter 3.3 cm LA Ao Ratio MM 1.0 MV E Point Septal Separation 0.7 cm DOPPLER AV Peak Velocity 109.7 cm/s LVOT Peak Velocity 79.0 cm/s AV Area Cont Eq vti 2.3 cm squared AV Area Cont Eq pk 2.4 cm squared MV Area PHT 5.0 cm squared Mitral E to A Ratio 2.6 MV E' Velocity 43.0 cm/s Mitral E to MV E' Ratio 10.1 Mitral E to LV E' Lateral Ratio 14.7 Mitral E to LV E' Septal Ratio 7.8 TR Peak Velocity 124.3 cm/s TR Peak Gradient 6.2 mmHg TV Peak E Velocity 69.0 cm/s Right Atrial Pressure 3.0 mmHg Pulmonary Artery Systolic Pressu 9.2 mmHg PV Peak Velocity 119.0 cm/s FINDINGS Left Ventricle Normal left ventricular size. LV systolic function is normal with EF of 55-60%. No regional wall motion abnormalities. Diastolic function is indeterminate because of atrial fibrillation. Right Ventricle The right ventricle is normal in size and function. Right Atrium The right atrium is normal in size. Left Atrium The left atrium is normal in size. Mitral Valve Grossly normal without significant stenosis or prolapse. There is no mitral regurgitation. Aortic Valve Grossly normal without significant sclerosis or stenosis. There is no aortic regurgitation. Tricuspid Valve Grossly normal without significant stenosis or regurgitation. Insufficient TR jet to calculate RVSP. Pulmonic Valve Grossly normal Pericardium Normal pericardium without effusion. Aorta Normal ascending aorta dimension. CONCLUSIONS Technically difficult study. LV systolic function is normal with EF of 55 to 60%. Diastolic function is indeterminate because of atrial fibrillation. Valvular structures are not very well visualized however no gross abnormalities. Compared to prior echocardiogram from 02/01/2020, no significant changes are noted. Paul New MD (Electronically Signed) Final Date: 29 October 2020 21:41 S
--- NOTE | 2020-10-27 02:11 | ECG_ITS ---
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: 1965 Requested By: Sarah Hackett Order Number: [id number] Reading MD: ANETTE MA Measurements Intervals [place] Rate: 92 P: [place]: QRS: 73 QRSD: 101 T: 77 QT: 327 QTc: 405 Interpretive Statements ATRIAL FIBRILLATION WITH ABERRANT CONDUCTION OR VENTRICULAR PREMATURE COMPLEXES ABNORMAL RHYTHM ECG Compared to ECG 02/01/2020 00:21:49 Ventricular premature complex(es) now present Aberrant conduction of supraventricular beat(s) now present Sinus rhythm no longer present Electronically Signed On 10-27-2020 20:21:31 CDT by ANETTE MA [id number]
[2020-10-27] MEDS: enoxaparin 40 mg/0.4 mL Syringe SUBCUT (02:47)
[2020-10-27] MEDS: potassium chloride ER 20 mEq Tablet 40 MEQ PO (02:48)
[2020-10-27 02:52] LABS: D Dimer <= 0.27 ug/mIFEU (0-0.59)
[2020-10-27 03:04] LABS: Troponin 5 2HR 27.07 ng/L (0-15)
[2020-10-27 03:06] LABS: Troponin 5 2HR Delta 15.07 ABS# (0-10)
--- NOTE | 2020-10-27 06:11 | ECG_ITS ---
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: 1965 Requested By: Sarah Hackett Order Number: [id number] Reading MD: ANETTE MA Measurements Intervals [place] Rate: 96 P: SC: QRS: 76 QRSD: 106 T: 72 QT: 347 QTc: 438 Interpretive Statements ATRIAL FIBRILLATION ABNORMAL RHYTHM ECG Compared to ECG 10/27/2020 04:26:36 Ventricular premature complex(es) no longer present Aberrant conduction of supraventricular beat(s) no longer present Electronically Signed On 10-27-2020 20:20:05 CDT by ANETTE MA [id number]
[2020-10-27 07:16] LABS: Troponin 5 6HR 22.88 ng/L (0-15); Troponin 5 6HR Delta 10.88 ng/L (0-12)
[2020-10-27 07:25] LABS: Anion Gap 12.2 (5-19); Blood Urea Nitrogen 12 mg/dL (6-20); Calcium 8.4 mg/dL (8.5-10.5); Carbon Dioxide 24 mmol/L (22-29); Chloride 106 mmol/L (98-107); Glomerular Filtration Rate 139.9 mL/min (90-130); Glucose 99 mg/dL (65-115); Osmolality Calculated 286 mOsm/kg (285-295); Potassium 4.2 mmol/L (3.5-5.1); Sodium 138 mmol/L (136-145)
[2020-10-27] MEDS: aspirin 325 mg EC Tablet PO (08:11)
--- NOTE | 2020-10-27 08:54 | PC.PHAR ---
pt states he takes care of his own medications-pt states he and his dr madeline his metoprolol tart 25mg po [id number] med history shows last filled on 03/02/20 30d/s
[2020-10-27] MEDS: metoprolol tartrate 25 mg Tablet PO (10:05)
[2020-10-27] MEDS: atorvastatin 40 mg Tablet PO (10:06)
--- NOTE | 2020-10-27 13:46 | PC.CHAP ---
Pastoral Care Encounter/Spiritual Assessment Type of Contact [] Declined piping blocker visit [] Patient/Family/Request visit [] Outpatient visit [] Follow-up visit [] Physician referral [] Code/Alert [xx] Routine visit [] Staff referral [] Actively dying [] Patient sleeping [] Family support [] [] Out of room [] Palliative care [] [] Receiving care in room [] Pre-surgical visit [] Trauma [] Long length of stay [] ICU visit [] Other: Relational/Emotional Strength [xx] Patient feels connected with others/family/visitors/staff [] Distress [] Loneliness/isolation [] Abandonment Spirituality of Patient [xx] Person of Bobbi [xx] Attends Mosque of their Bobbi [xx] Believes in Prayer [xx] Reads Bible or Christianity materials [] There are Spiritual issues to be addressed Child Care Development Specialist 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 [xx] Prayer [xx] Active listening [xx] Non-anxious presence [] Spiritual/emotional support [] Crisis/trauma care [] Spiritual counseling [] Bereavement support [] Provided bereavement packet [xx] Provided Bible/devotional materials [] Provided toy/stuffed animal, coloring book to patient or family member [] Provided Communion [] Anointing/Noti [] Salvation [xx] Completed spiritual assessment [] Other: Impact on Illness or Injury [] Angry [] Fearful [] Anxious [] Often cries [] Exhaustion [] Unable to work [] Unable to attend restorationism [] Unable to walk/stand [] Unable to read [] Unable to drive [] Unable to eat/drink [] Unable to sleep [] Unable to be with family [] Patient intubated [] Other: Summary Patient states he is feeling better. He wanted lengthy discussion on how to find and adhere to God's will. He believes God has neew plans for his life but he is not sure what those plans are. He believes his hospitalization is God's way of slowing him down to take time to hear God's voice and listen to Him. Time spent with patient 22 minutes
--- NOTE | 2020-10-27 14:24 | P.DS_ITS ---
Discharge Providers Date of Admission: 10/27/20 01:24 Date of Discharge: October 27, 2020 Attending Provider at Admission: Sally Good MD Attending Provider at Discharge: Geovanny Blancas MD Primary Care Provider: Juan Hillman DO Diagnoses at Discharge Discharge Diagnosis (1) New onset atrial fibrillation: Status: Acute (2) Hypokalemia: Status: Acute Reason for Visit Reason for Visit: STATES ARRYTHMIA/HAS HX Hospital Course Hospital Course This is a 55-year-old male with past medical history of paroxysmal atrial fibrillation, currently not on any medications who presents to [facility] due to chest palpitations Patient was admitted to [facility] for A. fib with RVR, was placed on a Cardizem drip, started on oral metoprolol. Cardiology was consulted, patient was transitioned to oral Cardizem as he told us that metoprolol makes him feel weak, discharged on Cardizem 120 mg p.o. daily. His Jordy vasc score was 1, discharged on aspirin. Patient was seen in the hospital roughly a year ago for atrial fibrillation, was discharged on Metroprolol and aspirin, he also had an Holter monitor as outpatient which also showed atrial fibrillation events, however patient tells me that he stopped taking his medications after discussion with his primary care physician. I advised him compliance of medical therapy with Cardizem, and aspirin due to his risks of adverse cardiovascular events, risk of strokes, high risk of morbidity mortality. He questions today, all questions answered, agreed to proceed. Patient did have elevated troponins during his hospitalization, a year ago we recommended stress testing however he did not follow-up, currently no chest pain, no acute ST-T wave changes on EKG, cardiology was consulted, recommended outpatient stress testing with follow-up with cardiology in 2 weeks. Patient was advised of importance of follow-up and stress testing. Advised of chest pain or palpitations go to the emergency room Physical Exam Const: COMMON NORMALS: no acute distress and patient oriented x3 HENMT: COMMON NORMALS: normocephalic HEAD & SCALP: normocephalic Neck/C-Spine: COMMON NORMALS: no JVD Resp: COMMON NORMALS: normal respiratory effort, No retractions, No use of accessory muscles and clear to auscultation bilaterally AUSCULTATION: clear to auscultation bilaterally Cardio: COMMON NORMALS: no JVD, regular rate, regular rhythm, S1 normal heart sound present and S2 normal heart sound present RATE: regular rate RHYTHM: regular rhythm HEART SOUNDS: S1 normal heart sound present and S2 normal heart sound present GI: COMMON NORMALS: Normal to inspection, nondistended, normoactive bowel sounds present, Soft to palpation, non-tender, No hepatosplenomegaly present, no masses and no bruits PALPATION: Yes Soft to palpation and Yes No hepatosplenomegaly present Extremity: COMMON NORMALS: capillary refill normal, no clubbing, cyanosis or edema, no calf tenderness and no pedal edema Neuro: COMMON NORMALS: patient oriented x3 Psych: COMMON NORMALS: mental status grossly normal Discharge Data Data Completed and Pending: Completed Studies During Hospitalization Category Date Time Status XR chest 1V addie ble [id number] Stat Exams 10/27/20 00:11 Completed Pending at discharge Category Date Time Status CV echo complete* [id number] Routine Ultrasound 10/27/20 02:04 Taken Labs from last 24 hours 10/27/20 10/27/20 10/27/20 06:48 06:48 02:28 WBC RBC Hgb Hct MCV MCH MCHC RDW Plt Count MPV Neut % (Auto) Lymph % (Auto) [place] % (Auto) Eos % (Auto) Baso % (Auto) Neut # (Auto) Lymph # (Auto) [place] # (Auto) Eos # (Auto) Baso # (Auto) Nucleated RBC % (a uto) Nucleated RBCs # PT INR D-Dimer Sodium 138 Potassium 4.2 Chloride 106 Carbon Dioxide 24 Anion Gap 12.2 BUN 12 Creatinine 0.6 L GFR Calculation 139.9 H Glucose 99 Calculated Osmolal ity 286 Calcium 8.4 L Magnesium Total Bilirubin AST ALT Alkaline Phosphata se Troponin T Baselin e Troponin T 120 Min [place] 27.07 H Delta Troponin T 15.07 H* Troponin T Hi Sens 6Hr 22.88 H Troponin T Hi Sens 6Hr Delta 10.88 Total Protein Albumin Globulin TSH 10/27/20 10/27/20 10/27/20 00:34 00:34 00:34 WBC RBC Hgb Hct MCV MCH MCHC RDW Plt Count MPV Neut % (Auto) Lymph % (Auto) [place] % (Auto) Eos % (Auto) Baso % (Auto) Neut # (Auto) Lymph # (Auto) [place] # (Auto) Eos # (Auto) Baso # (Auto) Nucleated RBC % (a uto) Nucleated RBCs # PT INR D-Dimer <= 0.27 Sodium Potassium Chloride Carbon Dioxide Anion Gap BUN Creatinine GFR Calculation Glucose Calculated Osmolal ity Calcium Magnesium 2.0 Total Bilirubin AST ALT Alkaline Phosphata se Troponin T Baselin e 12 Troponin T 120 Min [place] Delta Troponin T Troponin T Hi Sens 6Hr Troponin T Hi Sens 6Hr Delta Total Protein Albumin Globulin TSH 2.48 10/27/20 10/27/20 10/27/20 00:34 00:34 00:17 WBC 7.0 RBC 5.62 H Hgb 17.0 H Hct 49.4 MCV 87.9 MCH 30.2 MCHC 34.4 RDW 12.1 Plt Count 218 MPV 10.7 H Neut % (Auto) 44.2 Lymph % (Auto) 44.6 [place] % (Auto) 9.4 Eos % (Auto) 1.3 Baso % (Auto) 0.4 Neut # (Auto) 3.07 Lymph # (Auto) 3.1 [place] # (Auto) 0.7 Eos # (Auto) 0.1 Baso # (Auto) 0.0 Nucleated RBC % (a uto) 0 Nucleated RBCs # 0.0 PT 12.40 INR 0.90 D-Dimer Sodium 139 Potassium 3.4 L Chloride 105 Carbon Dioxide 26 Anion Gap 11.4 BUN 17 Creatinine 0.7 GFR Calculation 117.1 Glucose 136 H Calculated Osmolal ity 292 Calcium 8.9 Magnesium Total Bilirubin 0.3 AST 22 ALT 28 Alkaline Phosphata se 86 Troponin T Baselin e Troponin T 120 Min [place] Delta Troponin T Troponin T Hi Sens 6Hr Troponin T Hi Sens 6Hr Delta Total Protein 6.6 Albumin 4.3 Globulin 2.3 TSH Vitals: Last Vital Signs Temp 97.4 F L 10/27/20 10:55 Pulse 61 10/27/20 10:55 Resp 17 10/27/20 10:55 BP 104/68 10/27/20 10:55 Pulse Ox 97 10/27/20 10:55 Discharge Plan Discharge Patient Disposition: Home Condition: Stable Prescriptions: New aspirin 325 mg Tablet,Delayed Release (Dr/Ec) 325 mg PO DAILY 30 Days Qty: 30 RF: 0 atorvastatin 40 mg Tablet 40 mg PO Q24H 30 Days Qty: 30 RF: 0 Cardizem LA 120 mg tablet extended release 24 hr 120 mg PO Q24H 30 Days Qty: 30 RF: 0 Continued multivitamin Tablet 1 tab PO QAM RF: 0 Discharge Orders: Discharge Order (Routine); Ordered 10/27/20 Ordered By: Geovanny Blancas Referrals: Juan Hillman DO [Primary Care Provider] - Paul New M.D [Physician] - 2 weeks (outpatient stress test) Discharge Diet: Cardiac Discharge Activity: Resume usual activity Patient Instructions: Atrial Fibrillation (DC), Chest Pain (DC) Discharge Attestations Time Spent in Discharge Care*: less than 30 min Quality Metrics Clinical Quality Measures During this hospital stay, did patient experience: None Coding Level of Care Code Acute Chg FW DC note Diagnoses New onset atrial fibrillation I48.91 Hypokalemia E87.6
--- NOTE | 2020-10-27 14:33 | PM.CONSULT ---
Providers/Reason For Consult Consulting Physican/Specialty*: Paul New MD/ Cardiology Reason for Consult*: Afib/ troponin elevation Requesting Physcian: Geovanny Blancas MD Attending Physician: Geovanny Blancas MD Primary Care Provider: Juan Hillman DO History of Present Illness History of Present Illness 55-year-old male with past medical history of paroxysmal atrial fibrillation, not on any medications who presented to hospital with Palpitations. He was found to be in A. fib with RVR. He was put on Cardizem drip and oral metoprolol. His heart rates improved significantly. He had mild troponin elevation. EKG did not show any ischemic changes. He does not have any chest pain. However he says as outpatient he has noted with significant exertion he may feel chest tightness. This is associated with shortness of breath. Review of Systems Const: Denies: fever(s) Eyes: Denies: change in vision ENMT: Denies: throat pain Card: Reports: palpitations and irregular heart rhythm; Denies: chest pain Resp: Denies: dyspnea GI: Denies: abdominal pain : Denies: flank pain Musc: Denies: neck pain Skin/Breast: Denies: rash Neuro: Denies: headache(s) Psych: Denies: anxiety Endo: Denies: polyuria Khai/Lymph: Denies: easy bruising All/Imm: Denies: urticaria Meds/Allergies Home Medications and Allergies Home Medications Medication Instructions Recorded Confirmed Last Taken Type aspirin 325 mg PO DAILY 30 Days #30 tab 10/27/20 Unknown Rx atorvastatin 40 mg PO Q24H 30 Days #30 tab 10/27/20 Unknown Rx diltiazem HCl [Cardizem LA] 120 mg PO Q24H 30 Days #30 tab 10/27/20 Unknown Rx multivitamin 1 tab PO QAM 10/27/20 10/27/20 10/26/20 History Allergies Allergy/AdvReac Type Severity Reaction Status Date / Time sulfamethoxazole Allergy Severe algy-hives Verified 10/27/20 08:54 [From Bactrim] trimethoprim [From Bactrim] Allergy Severe algy-hives Verified 10/27/20 08:54 Current Medications Current Medications Generic Name Dose Route Start Last Admin Trade Name Freq PRN Reason Stop Dose Admin Aspirin 325 mg 10/27/20 09:00 10/27/20 08:11 Aspirin 325 Mg Ec Tablet PO 325 mg DAILY CARLY Administration Atorvastatin Calcium 40 mg 10/27/20 10:00 10/27/20 10:06 Atorvastatin 40 Mg Tablet PO 40 mg Q24H CARLY Administration Enoxaparin Sodium 40 mg 10/27/20 02:04 10/27/20 02:47 Enoxaparin 40 Mg/0.4 Ml Syringe SUBCUT 40 mg Q24H CARLY Administration Diltiazem HCl 125 mg/ Sodium 125 mls @ 5 mls/hr 10/27/20 02:04 10/27/20 09:58 Chloride IV Not Given .Q24H CARLY 5 MG/HR PFSH Acute PFSH: Medical History Chronic prostatitis No pertinent past medical history Right thyroid nodule Tick bite Surgical History History of appendectomy Family History Father , at age 95 Arrhythmia Mother , at age 82 Heart disease Social History Smoking and tobacco status: never smoked Alcohol intake: never Lives independently: Yes Household members: spouse Marital status: Current occupational status: employed History of recent travel: No Vitals/I&O/Wt Last Vital Signs Temp 97.4 F L 10/27/20 10:55 Pulse 61 10/27/20 10:55 Resp 17 10/27/20 10:55 BP 104/68 10/27/20 10:55 Pulse Ox 97 10/27/20 10:55 10/26/20 10/27/20 10/27/20 22:59 06:59 14:59 Intake Total 1999 / 1999 570.5 / 570.5 Output Total 600 / 600 875 / 875 Balance 1400 / 1400 -304.5 / -304.5 Weight last 48 hrs Weight 194 lb Physical Exam Narrative: EXAM NARRATIVE: GENERAL: Awake, alert, oriented, in no acute distress. [] HEENT: Normocephalic, atraumatic, PERRLA. [] CHEST: Clear to auscultation bilaterally. [] CVS: S1, S2 normal. No murmur, rubs, gallops. Peripheral pulses palpable. [] ABDOMEN: Soft, nontender. Nondistended. Bowel sounds heard. [] NEUROVASCULAR: Awake, alert. Power 5/5 all extremities. DTR+ [] EXTREMITIES: No edema. [] A&P Assessment and plan (1) Elevated troponin: Status: Acute (2) Atrial fibrillation with RVR: Status: Acute Patient presented with A. fib with RVR. Discharge score is 1, will recommend putting him on aspirin. For rate control, he was put on metoprolol in the past however states that could not tolerate it because of fatigue. We will put him on Cardizem 120 mg daily. Patient's mild troponin elevation is likely secondary to demand ischemia in the setting of A. fib with RVR. However given his exertional symptoms, we will recommend outpatient stress test. Outpatient cardiology follow-up. Patient is stable to be discharged from cardiology standpoint. Echocardiogram Thank you for involving us with the care of this patient. We will continue to follow. Please call with questions. 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
== END 2020-10-27 14:50 | disposition home or self-care (01) ==
LOC: ER 10-27 01:08 → MEDSURG 10-27 01:35
PROVIDERS: Admitting Provider Internal Medicine; Emergency Provider Emergency Medicine; PCP Family Medicine; Visit Provider Family Medicine
DX: I48.91 Unspecified atrial fibrillation (principal); E87.6 Hypokalemia; R79.89 Other specified abnormal findings of blood chemistry
CPT/HCPCS: 36415; 71045; 80048; 80053; 83735; 84443; 84484; 85025; 85378; 85610; 93005; 93306; 96365; 96366; 96372; 96375; 96376; 99285; G0378; J1650; J2405; J3490; J7030

== ENCOUNTER 2020-10-29 12:06 | Observation (INO) | payer SELFPAY ==
[2020-10-29] VITALS (9 sets, daily range): BP systolic 115–141; BP diastolic 63–87; PULSE 62–86; RESP 14–20; TEMP 36.8–36.9; O2SAT 97–99; BMI 25.0
--- NOTE | 2020-10-29 13:22 | CTR_ITS ---
Critical results: THIS REPORT CONTAINS FINDINGS THAT MAY BE CRITICAL / URGENT (stroke protocol) TO PATIENT CARE. The findings were verbally communicated via telephone conference with ALEJANDRA NEGRON at 3:16 PM CDT on 10/29/2020. The findings were acknowledged and understood. PROCEDURE INFORMATION: Exam: CT Angiography Head With Contrast Exam date and time: 10/29/2020 1:43 PM Age: 55 years old Clinical indication: Patient HX: C/O scalp and rue numbness; Additional info: Recent diagnosis of afib, neuro symptoms TECHNIQUE: Imaging protocol: Computed tomography angiography of the head with intravenous contrast. 3D rendering (Not supervised by radiologist): MIP and/or 3D reconstructed images were created by the technologist. Radiation optimization: All CT scans at this facility use at least one of these dose optimization techniques: automated exposure control; mA and/or kV adjustment per patient size (includes targeted exams where dose is matched to clinical indication); or iterative reconstruction. Contrast material: OMNI 350; Contrast volume: 95 ml; Contrast route: INTRAVENOUS (IV); COMPARISON: CT head wo con* [id number] 10/29/2020 2:25 PM RADIATION DOSE METRICS: Total DLP (mGy-cm): 2323.7 FINDINGS: ANTERIOR CIRCULATION: Right internal carotid artery: There is calcification of the intracranial right internal carotid artery. No significant degrees of stenosis or occlusion. No evidence of aneurysm. Right middle cerebral artery: Unremarkable. No occlusion or significant stenosis. No aneurysm. Right anterior cerebral artery: Unremarkable. No occlusion or significant stenosis. No aneurysm. Left internal carotid artery: There is calcification of the intracranial left internal carotid artery. There is asymmetric appearance in the distal left petrous internal carotid artery at junction with pre cavernous segment with area of central low density which is similar to the right side most distally but asymmetric enhancement/density in the most distal horizontal petrous segment. This is suspected to likely be artifact as there is some similar artifact in mid aspect of right petrous ICA. However, cannot completely exclude asymmetric plaque or unusual appearance of filling defect related to small and nonocclusive thrombus. No evidence of aneurysm. Left middle cerebral artery: Unremarkable. No occlusion or significant stenosis. No aneurysm. Left anterior cerebral artery: Unremarkable. No occlusion or significant stenosis. No aneurysm. POSTERIOR CIRCULATION: Right vertebral artery: Unremarkable. No occlusion or significant stenosis. No aneurysm. Left vertebral artery: Unremarkable. No occlusion or significant stenosis. No aneurysm. Basilar artery: Unremarkable. No occlusion or significant stenosis. No aneurysm. Right posterior cerebral artery: Unremarkable. No occlusion or significant stenosis. No aneurysm. Left posterior cerebral artery: Unremarkable. No occlusion or significant stenosis. No aneurysm. Brain: No definite mass, mass effect, or midline shift. Cerebral ventricles: No ventriculomegaly. Bones/joints: Unremarkable. No acute fracture. Soft tissues: Unremarkable. IMPRESSION: Asymmetric opacification in density in distal left petrous ICA favored to be artifact but cannot completely exclude asymmetric plaque or unusual appearance nonocclusive appearing defect. Determine clinically if patient should be anticoagulated for new onset atrial fibrillation. Would recommend repeat CTA of head starting in upper neck and in addition to two-dimensional and MIP coronal and sagittal reformatted images, consider 3 dimensional reformatted images. PROCEDURE INFORMATION: Exam: CT Angiography Neck With Contrast Exam date and time: 10/29/2020 1:43 PM Age: 55 years old Clinical indication: Patient HX: C/O scalp and rue numbness; Additional info: Recent diagnosis of afib, neuro symptoms TECHNIQUE: Imaging protocol: Computed tomography angiography of the neck with contrast. 3D rendering (Not supervised by radiologist): MIP and/or 3D reconstructed images were created by the technologist. Radiation optimization: All CT scans at this facility use at least one of these dose optimization techniques: automated exposure control; mA and/or kV adjustment per patient size (includes targeted exams where dose is matched to clinical indication); or iterative reconstruction. Contrast material: OMNI 350; Contrast volume: 95 ml; Contrast route: INTRAVENOUS (IV); COMPARISON: CT head wo con* [id number] 10/29/2020 2:25 PM RADIATION DOSE METRICS: Total DLP (mGy-cm): 2323.7 FINDINGS: Right common carotid artery: No stenosis. No dissection or occlusion. Right internal carotid artery: There is mild intimal thickening and plaque at right carotid bulb and bifurcation. There is no significant stenosis, thrombosis, occlusion, or evidence of dissection. Right external carotid artery: No occlusion or stenosis of the origin. Right vertebral artery: No stenosis. No dissection or occlusion. Left common carotid artery: No stenosis. No dissection or occlusion. Left internal carotid artery: There is small amount of plaque left carotid bulb and bifurcation. There is no significant stenosis, thrombosis, occlusion, or evidence of dissection. Left external carotid artery: No occlusion or stenosis of the origin. Left vertebral artery: No stenosis. No dissection or occlusion. Aorta: There is minimal calcification in aortic arch which is normal caliber is visualized and shows no evidence of dissection. Three vessel aortic arch with no great vessel origin stenosis. Thyroid: There is asymmetric enlargement of right lobe of thyroid with irregular low-density nodule measuring approximately 3.2 cm. Recommend follow-up thyroid ultrasound. Bones/joints: No acute fracture. Soft tissues: Normal. No significant soft tissue swelling. CT/CT angio headneck* [id number] IMPRESSION: 1. Mild atherosclerotic changes. No cervical vascular stenosis or occlusion. No evidence of dissection. 2. Large right thyroid nodule and recommend ultrasound follow-up. Further management of the ITN after thyroid ultrasound, including fine-needle aspiration, should be based on ultrasound findings. COMMENTS: Consistent with the [employer]'s Incidental Findings Committee white paper (J Am Parminder Radiol 2015): In patients aged 35 years and older with an incidental thyroid nodule equal to or greater than 1.[address], MRI or extrathyroidal US, further evaluation with dedicated thyroid US is recommended for patients with normal life expectancy and without comorbidities. For smaller nodules without suspicious features, no further evaluation or follow up is recommended. REFERENCES: NASCET CRITERIA. The degree of internal carotid artery stenosis is based on NASCET criteria. Normal is no stenosis. Mild is less than 50% stenosis. Moderate is 50-69% stenosis. Severe is 70% to 99% stenosis. Total occlusion is no detectable patent lumen. Radiation Dose CTDIVOL = (mGy): DLP = 2323.7~2323.7 (mGy-cm)
--- NOTE | 2020-10-29 13:23 | ECG_ITS ---
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 Measurements Intervals [place] Rate: 69 P: 53 MI: 153 QRS: 76 QRSD: 110 T: 72 QT: 369 QTc: 398 Interpretive Statements SINUS RHYTHM Compared to ECG 10/27/2020 06:02:12 Atrial fibrillation no longer present Electronically Signed On 10-29-2020 15:28:38 CDT by Paul New M.D. [id number]
--- NOTE | 2020-10-29 13:23 | CTR_ITS ---
PROCEDURE INFORMATION: Exam: CT Head Without Contrast Exam date and time: 10/29/2020 1:43 PM Age: 55 years old Clinical indication: Numbness / parasthesia; Right; Patient HX: C/O scalp and rue numbness; Additional info: Symptoms of acute stroke TECHNIQUE: Imaging protocol: Computed tomography of the head without contrast. Radiation optimization: All CT scans at this facility use at least one of these dose optimization techniques: automated exposure control; mA and/or kV adjustment per patient size (includes targeted exams where dose is matched to clinical indication); or iterative reconstruction. COMPARISON: No relevant prior studies available. RADIATION DOSE METRICS: Total DLP (mGy-cm): 881.25 FINDINGS: Brain: There is no acute intracranial hemorrhage. No extra-axial fluid collection. No evidence of acute infarct. Harding white differentiation is intact. There is no evidence of mass. There is no mass effect or midline shift. Cerebral ventricles: No ventriculomegaly. Bones/joints: No acute fracture. Paranasal sinuses: Visualized sinuses are unremarkable. No fluid levels. Mastoid air cells: No significant mastoid effusion. Soft tissues: Unremarkable as visualized. CT/CT head wo con* [id number] IMPRESSION: No evidence of acute intracranial abnormality. No acute hemorrhage. No evidence of acute infarct or mass. Radiation Dose CTDIVOL = (mGy): DLP = 881.25 (mGy-cm)
--- NOTE | 2020-10-29 13:26 | W.ED.NEUROSD ---
HPI - Neuro Symptoms/Deficit General: Chief Complaint: Neuro Symptoms/Deficit Stated Complaint: head and r arm/hand numbness Time Seen by Provider: 10/29/20 13:13 Source: patient and family () Mode of arrival: ambulatory Limitations: no limitations History of Present Illness: HPI Narrative: 55-year-old male who was admitted 2 days ago overnight for A. fib with RVR. He had had one episode of A. fib about 1 year ago prior to that. He presents today with right-sided numbness on his scalp and upper extremity. He denies any weakness or gait disturbances. He denies any facial droop. Symptoms started when he woke and are still present. No prior history of a CVA. No fever. Onset (ago): hour(s) (6) Timing confirmed by: spouse Location: right face History of same: No Severity: mild Quality: numb Relieving factors: none Exacerbating factors: none Context: sudden onset Associated symptoms: Deny chest pain, cough, diaphoresis, fevers/chills, headache(s), anorexia, malaise, nausea, seizures, short of breath, syncope, tingling, vertigo, vomiting or weakness Treatments Prior to Arrival: none Review of Systems General: Reports: 10 or more systems reviewed and unremarkable except in HPI and below Const: Denies: malaise or diaphoresis Card: Denies: chest pain or syncope GI: Denies: nausea or vomiting Neuro: Denies: headache(s) or vertigo [facility] PFSH: Medical History Atrial fibrillation chronic, paroxysmal; xarelto initiated 10/2020 Carotid thrombosis, left Chronic prostatitis Hyperlipidemia Right thyroid nodule per thyroid US 01/2020 measures 7.4 x 3.5 x 4.6 CM Tick borne fever (~2019) Transient ischemic attack (~10/2020) Surgical History History of appendectomy Family History Father , at age 95 Arrhythmia Mother , at age 82 Heart disease Social History Smoking and tobacco status: never smoked Alcohol intake: never Lives independently: Yes Household members: spouse Marital status: Current occupational status: employed History of recent travel: No NIH stroke score NIHSS: Level Of Consciousness - 1a: 0 Level Of Consciousness Questions - 1b: Both Correct Level Of Consciousness Commands - 1c: Both Correct Best Gaze - 2: Normal Visual Garcia - 3: No Visual Loss Facial Palsy - 4: Normal Motor Arm Right - 5: No Drift Motor Arm Left - 5: No Drift Motor Leg Right - 6: No Drift Motor Leg Left - 6: No Drift Limb Ataxia - 7: Absent Sensory - 8: Normal Best Language - 9: No Aphasia Dysarthia - 10: Normal Extinction And Inattention - 11: 0 Score: Total Score: 0 Physical Exam Const: COMMON NORMALS: no acute distress, average body habitus, patient oriented x3, no limitations, healthy appearing, alert and well nourished HENMT: COMMON NORMALS: normocephalic, atraumatic and moist oral mucous membranes HEAD & SCALP: normocephalic and atraumatic Neck/C-Spine: COMMON NORMALS: full ROM, supple, no meningeal signs, no JVD and No carotid bruits Resp: COMMON NORMALS: normal respiratory effort, No retractions, No use of accessory muscles, clear to auscultation bilaterally and percussion normal AUSCULTATION: clear to auscultation bilaterally PERCUSSION: percussion normal Cardio: COMMON NORMALS: no JVD, regular rate, regular rhythm, S1 normal heart sound present, S2 normal heart sound present, No gallops present (Cardio), No clicks present (Cardio), No murmurs present (Cardio), No rub (Cardio) and Peripheral pulses 2+ throughout RATE: regular rate RHYTHM: regular rhythm HEART SOUNDS: S1 normal heart sound present and S2 normal heart sound present PERIPHERAL PULSES: Peripheral pulses 2+ throughout GI: COMMON NORMALS: Normal to inspection, nondistended, normoactive bowel sounds present, Soft to palpation, non-tender, No hepatosplenomegaly present, no masses and no bruits PALPATION: Yes Soft to palpation and Yes No hepatosplenomegaly present Extremity: COMMON NORMALS: normal to inspection, full ROM, capillary refill normal, no calf tenderness and no pedal edema Neuro: COMMON NORMALS: patient oriented x3 SENSORIUM/ORIENTATION: Yes alert MENINGEAL SIGNS: Yes no meningeal signs Skin: COMMON NORMALS: no rashes or lesions noted, no wounds, turgor normal, no jaundice, no petechiae and no mottling GENERAL SKIN EXAM: no rashes or lesions noted and turgor normal Course Consultations: Consultation #1: Discussed the patient with Dr. Blancas, hospitalist and he kindly accepted the patient to his service. Time: 15:15 Vital Signs: Vital signs: Vital Signs Temperature 98.7 F 10/30/20 12:08 Pulse Rate 72 10/30/20 12:08 Respiratory Rate 18 10/30/20 11:14 Blood Pressure 126/78 10/30/20 12:08 Pulse Oximetry 98 10/30/20 12:08 MDM - Neuro Symptoms/Deficit MDM Narrative: Medical decision making narrative: This 55 year old male who was recently diagnosed with a-fib 3 days ago and is not on anticoagulation. He woke up today with right sided numbness and tingling. No obvious neurologic deficits and his NIHSS is 0. On his head and neck CTA however, there is concern for possible plaque in his ICA vs artifact. After discussion with the radiologist, she advised that we repeated the same imaging modality tomorrow and compare to see if it is artifact or indeed a true plaque. He is right risk and so it is reasonable to admit even with a low NIHSS. He is therefore being admitted overnight for a repeat CTA of his head and neck in the morning Medical Records: Attestation: I reviewed the patient's medical records. Lab Data: Attestation: I reviewed the patient's lab results. Labs: Lab Results 10/29/20 10/29/20 10/29/20 Range/Units 13:48 13:48 13:48 WBC 6.8 (4.0-10.0) 10^3/ uL RBC 5.36 H (4.1-5.3) 10^6/u L Hgb 16.2 (11.7-16.6) g/dL Hct 47.5 (42.0-52.0) % MCV 88.6 (80-94) fL MCH 30.2 (28.0-34.0) pg MCHC 34.1 (30.0-36.0) g/dL RDW 12.0 L (12.1-15.1) % Plt Count 192 (130-400) 10^3/c mm MPV 11.7 H (7.4-10.4) fL Neut % (Auto) 69.6 % Lymph % (Auto) 23.7 % [place] % (Auto) 5.7 % Eos % (Auto) 0.6 % Baso % (Auto) 0.3 % Neut # (Auto) 4.75 (1.8-7.7) 10^3/u L Lymph # (Auto) 1.6 (0.8-4.8) 10^3/u L [place] # (Auto) 0.4 (0.2-0.9) 10^3/u L Eos # (Auto) 0.0 (0.0-0.8) 10^3/u L Baso # (Auto) 0.0 (0.0-0.1) 10^3/u L Nucleated RBC % (a uto) 0 % Nucleated RBCs # 0.0 /100WBC PT 12.50 (12.1-14.9) SECO NDS INR 0.91 (0.8-1.2) APTT 27.3 (23.9-36.7) SECO NDS Sodium 138 (136-145) mmol/L Potassium 4.4 (3.5-5.1) mmol/L Chloride 101 (98-107) mmol/L Carbon Dioxide 27 (22-29) mmol/L Anion Gap 14.4 (5-19) BUN 15 (6-20) mg/dL Creatinine 0.8 (0.7-1.2) mg/dL GFR Calculation 100.4 (90-130) mL/min Glucose 88 (65-115) mg/dL POC Glucose (70-110) mg/dL Calculated Osmolal ity 286 (285-295) mOsm/k g Calcium 9.3 (8.5-10.5) mg/dL Total Bilirubin 0.4 (0.15-1.2) mg/dL AST 25 (0-40) U/L ALT 26 (0-41) U/L Alkaline Phosphata se 76 (40-130) IU/L Total Protein 6.4 L (6.6-8.7) g/dL Albumin 4.3 (3.5-5.2) g/dL Globulin 2.1 (1.3-4.6) g/dL Urine Color (Yellow) Urine Appearance (CLEAR) Urine pH (5-7) Ur Specific Gravit y (1.005-1.030) Urine Protein (Negative) Urine Glucose (UA) (Normal) Urine Ketones (Negative) Urine Blood (Negative) Urine Nitrate (Negative) Urine Bilirubin (Negative) Urine Urobilinogen (Negative) mg/dL Ur Leukocyte Mayra ase (Negative) Urine Opiates Scre en (Negative) ng/mL Ur Barbiturates Sc reen (Negative) ng/mL Ur Phencyclidine S crn (Negative) ng/mL Ur Amphetamines Sc reen (Negative) ng/mL U Benzodiazepines Scrn (Negative) ng/mL Urine Cocaine Scre en (Negative) ng/mL U Marijuana (THC) Screen (Negative) ng/mL 10/29/20 10/29/20 10/29/20 Range/Units 14:05 15:15 15:15 WBC (4.0-10.0) 10^3/ uL RBC (4.1-5.3) 10^6/u L Hgb (11.7-16.6) g/dL Hct (42.0-52.0) % MCV (80-94) fL MCH (28.0-34.0) pg MCHC (30.0-36.0) g/dL RDW (12.1-15.1) % Plt Count (130-400) 10^3/c mm MPV (7.4-10.4) fL Neut % (Auto) % Lymph % (Auto) % [place] % (Auto) % Eos % (Auto) % Baso % (Auto) % Neut # (Auto) (1.8-7.7) 10^3/u L Lymph # (Auto) (0.8-4.8) 10^3/u L [place] # (Auto) (0.2-0.9) 10^3/u L Eos # (Auto) (0.0-0.8) 10^3/u L Baso # (Auto) (0.0-0.1) 10^3/u L Nucleated RBC % (a uto) % Nucleated RBCs # /100WBC PT (12.1-14.9) SECO NDS INR (0.8-1.2) APTT (23.9-36.7) SECO NDS Sodium (136-145) mmol/L Potassium (3.5-5.1) mmol/L Chloride (98-107) mmol/L Carbon Dioxide (22-29) mmol/L Anion Gap (5-19) BUN (6-20) mg/dL Creatinine (0.7-1.2) mg/dL GFR Calculation (90-130) mL/min Glucose (65-115) mg/dL POC Glucose 89 (70-110) mg/dL Calculated Osmolal ity (285-295) mOsm/k g Calcium (8.5-10.5) mg/dL Total Bilirubin (0.15-1.2) mg/dL AST (0-40) U/L ALT (0-41) U/L Alkaline Phosphata se (40-130) IU/L Total Protein (6.6-8.7) g/dL Albumin (3.5-5.2) g/dL Globulin (1.3-4.6) g/dL Urine Color Yellow (Yellow) Urine Appearance Clear (CLEAR) Urine pH 7 (5-7) Ur Specific Gravit y 1.010 (1.005-1.030) Urine Protein Neg (Negative) Urine Glucose (UA) Norm (Normal) Urine Ketones Negative (Negative) Urine Blood Neg (Negative) Urine Nitrate Negative (Negative) Urine Bilirubin Neg (Negative) Urine Urobilinogen Norm (Negative) mg/dL Ur Leukocyte Mayra ase Negative (Negative) Urine Opiates Scre en Negative (Negative) ng/mL Ur Barbiturates Sc reen Negative (Negative) ng/mL Ur Phencyclidine S crn Negative (Negative) ng/mL Ur Amphetamines Sc reen Negative (Negative) ng/mL U Benzodiazepines Scrn Negative (Negative) ng/mL Urine Cocaine Scre en Negative (Negative) ng/mL U Marijuana (THC) Screen Negative (Negative) ng/mL Imaging Data^: Other CT: Attestation: I personally reviewed and interpreted this imaging study as follows: Radiologist's impression: [address] [address] [address] Scan Report Signed Patient: Jorge Luis Alvarez #: [id number] : 1965Acct#:[id number] Age/Sex: 55 / MADM Date: 10/29/20 Loc: ERRoom/Bed: Attending Dr: Ordering Provider/Ordering MD: Cb Negron MD, [facility] [place] Date of Service: 10/29/20 Procedure(s): CT angio headneck* [id number] Accession Number(s): [id number] Report Number: [id number] Critical results: THIS REPORT CONTAINS FINDINGS THAT MAY BE CRITICAL / URGENT (stroke protocol) TO PATIENT CARE. The findings were verbally communicated via telephone conference with CB NEGRON at 3:16 PM CDT on 10/29/2020. The findings were acknowledged and understood. PROCEDURE INFORMATION: Exam: CT Angiography Head With Contrast Exam date and time: 10/29/2020 1:43 PM Age: 55 years old Clinical indication: Patient HX: C/O scalp and rue numbness; Additional info: Recent diagnosis of afib, neuro symptoms TECHNIQUE: Imaging protocol: Computed tomography angiography of the head with intravenous contrast. 3D rendering (Not supervised by radiologist): MIP and/or 3D reconstructed images were created by the technologist. Radiation optimization: All CT scans at this facility use at least one of these dose optimization techniques: automated exposure control; mA and/or kV adjustment per patient size (includes targeted exams where dose is matched to clinical indication); or iterative reconstruction. Contrast material: OMNI 350; Contrast volume: 95 ml; Contrast route: INTRAVENOUS (IV); COMPARISON: CT head wo con* [id number] 10/29/2020 2:25 PM RADIATION DOSE METRICS: Total DLP (mGy-cm): 2323.7 FINDINGS: ANTERIOR CIRCULATION: Right internal carotid artery: There is calcification of the intracranial right internal carotid artery. No significant degrees of stenosis or occlusion. No evidence of aneurysm. Right middle cerebral artery: Unremarkable. No occlusion or significant stenosis. No aneurysm. Right anterior cerebral artery: Unremarkable. No occlusion or significant stenosis. No aneurysm. Left internal carotid artery: There is calcification of the intracranial left internal carotid artery. There is asymmetric appearance in the distal left petrous internal carotid artery at junction with pre cavernous segment with area of central low density which is similar to the right side most distally but asymmetric enhancement/density in the most distal horizontal petrous segment. This is suspected to likely be artifact as there is some similar artifact in mid aspect of right petrous ICA. However, cannot completely exclude asymmetric plaque or unusual appearance of filling defect related to small and nonocclusive thrombus. No evidence of aneurysm. Left middle cerebral artery: Unremarkable. No occlusion or significant stenosis. No aneurysm. Left anterior cerebral artery: Unremarkable. No occlusion or significant stenosis. No aneurysm. POSTERIOR CIRCULATION: Right vertebral artery: Unremarkable. No occlusion or significant stenosis. No aneurysm. Left vertebral artery: Unremarkable. No occlusion or significant stenosis. No aneurysm. Basilar artery: Unremarkable. No occlusion or significant stenosis. No aneurysm. Right posterior cerebral artery: Unremarkable. No occlusion or significant stenosis. No aneurysm. Left posterior cerebral artery: Unremarkable. No occlusion or significant stenosis. No aneurysm. Brain: No definite mass, mass effect, or midline shift. Cerebral ventricles: No ventriculomegaly. Bones/joints: Unremarkable. No acute fracture. Soft tissues: Unremarkable. IMPRESSION: Asymmetric opacification in density in distal left petrous ICA favored to be artifact but cannot completely exclude asymmetric plaque or unusual appearance nonocclusive appearing defect. Determine clinically if patient should be anticoagulated for new onset atrial fibrillation. Would recommend repeat CTA of head starting in upper neck and in addition to two-dimensional and MIP coronal and sagittal reformatted images, consider 3 dimensional reformatted images. PROCEDURE INFORMATION: Exam: CT Angiography Neck With Contrast Exam date and time: 10/29/2020 1:43 PM Age: 55 years old Clinical indication: Patient HX: C/O scalp and rue numbness; Additional info: Recent diagnosis of afib, neuro symptoms TECHNIQUE: Imaging protocol: Computed tomography angiography of the neck with contrast. 3D rendering (Not supervised by radiologist): MIP and/or 3D reconstructed images were created by the technologist. Radiation optimization: All CT scans at this facility use at least one of these dose optimization techniques: automated exposure control; mA and/or kV adjustment per patient size (includes targeted exams where dose is matched to clinical indication); or iterative reconstruction. Contrast material: OMNI 350; Contrast volume: 95 ml; Contrast route: INTRAVENOUS (IV); COMPARISON: CT head wo con* [id number] 10/29/2020 2:25 PM RADIATION DOSE METRICS: Total DLP (mGy-cm): 2323.7 FINDINGS: Right common carotid artery: No stenosis. No dissection or occlusion. Right internal carotid artery: There is mild intimal thickening and plaque at right carotid bulb and bifurcation. There is no significant stenosis, thrombosis, occlusion, or evidence of dissection. Right external carotid artery: No occlusion or stenosis of the origin. Right vertebral artery: No stenosis. No dissection or occlusion. Left common carotid artery: No stenosis. No dissection or occlusion. Left internal carotid artery: There is small amount of plaque left carotid bulb and bifurcation. There is no significant stenosis, thrombosis, occlusion, or evidence of dissection. Left external carotid artery: No occlusion or stenosis of the origin. Left vertebral artery: No stenosis. No dissection or occlusion. Aorta: There is minimal calcification in aortic arch which is normal caliber is visualized and shows no evidence of dissection. Three vessel aortic arch with no great vessel origin stenosis. Thyroid: There is asymmetric enlargement of right lobe of thyroid with irregular low-density nodule measuring approximately 3.2 cm. Recommend follow-up thyroid ultrasound. Bones/joints: No acute fracture. Soft tissues: Normal. No significant soft tissue swelling. CT/CT angio headneck* [id number] IMPRESSION: 1. Mild atherosclerotic changes. No cervical vascular stenosis or occlusion. No evidence of dissection. 2. Large right thyroid nodule and recommend ultrasound follow-up. Further management of the ITN after thyroid ultrasound, including fine-needle aspiration, should be based on ultrasound findings. COMMENTS: Consistent with the [employer]'s Incidental Findings Committee white paper (J Am Parminder Radiol 2015): In patients aged 35 years and older with an incidental thyroid nodule equal to or greater than 1.[address], MRI or extrathyroidal US, further evaluation with dedicated thyroid US is recommended for patients with normal life expectancy and without comorbidities. For smaller nodules without suspicious features, no further evaluation or follow up is recommended. REFERENCES: NASCET CRITERIA. The degree of internal carotid artery stenosis is based on NASCET criteria. Normal is no stenosis. Mild is less than 50% stenosis. Moderate is 50-69% stenosis. Severe is 70% to 99% stenosis. Total occlusion is no detectable patent lumen. Radiation Dose CTDIVOL = (mGy): DLP = 2323.7~2323.7 (mGy-cm) Dictated By:Yajaira Huertas MD Signed By:Yajaira Huertasigned Date/Time:10/29/201517 DD/ 1516 CT Head: Attestation: I personally reviewed and interpreted this imaging study as follows: Radiologist's impression: [address] [place] [address] CT Scan Report Signed Patient: Jorge Luis Alvarez #: [id number] : 1965Acct#:[id number] Age/Sex: 55 / MADM Date: 10/29/20 Loc: ERRoom/Bed: Attending Dr: Ordering Provider/Ordering MD: Cb Negron MD, [facility] [place] Date of Service: 10/29/20 Procedure(s): CT head wo con* [id number] Accession Number(s): [id number] Report Number: [id number] PROCEDURE INFORMATION: Exam: CT Head Without Contrast Exam date and time: 10/29/2020 1:43 PM Age: 55 years old Clinical indication: Numbness / parasthesia; Right; Patient HX: C/O scalp and rue numbness; Additional info: Symptoms of acute stroke TECHNIQUE: Imaging protocol: Computed tomography of the head without contrast. Radiation optimization: All CT scans at this facility use at least one of these dose optimization techniques: automated exposure control; mA and/or kV adjustment per patient size (includes targeted exams where dose is matched to clinical indication); or iterative reconstruction. COMPARISON: No relevant prior studies available. RADIATION DOSE METRICS: Total DLP (mGy-cm): 881.25 FINDINGS: Brain: There is no acute intracranial hemorrhage. No extra-axial fluid collection. No evidence of acute infarct. Harding white differentiation is intact. There is no evidence of mass. There is no mass effect or midline shift. Cerebral ventricles: No ventriculomegaly. Bones/joints: No acute fracture. Paranasal sinuses: Visualized sinuses are unremarkable. No fluid levels. Mastoid air cells: No significant mastoid effusion. Soft tissues: Unremarkable as visualized. CT/CT head wo con* [id number] IMPRESSION: No evidence of acute intracranial abnormality. No acute hemorrhage. No evidence of acute infarct or mass. Radiation Dose CTDIVOL = (mGy): DLP = 881.25 (mGy-cm) Dictated By:Yajaira Huertas MD Signed By:Yajaira Huertas Date/Time:10/29/201517 DD/ 15 EKG Data^: EKG 1: Attestation: I personally reviewed and interpreted this EKG as follows: EKG interpretation date: 10/29/20 EKG interpretation time: 13:29 Prior EKG tracings: available for review Interpretation: Sinus rhythm HR 69 bpm Normal axis No ST changes Discharge Plan Discharge Patient Disposition: Admitted As Inpatient Admit Provider: Geovanny Blancas Clinical Impression: Transient ischemic attack, Atrial fibrillation Condition: Stable Discharge Orders: Discharge Order (Routine); Ordered 10/30/20 Ordered By: Liz Jones Discharge Diet: Cardiac Discharge Activity: Resume usual activity Coding Level of Care Code ED Cardiology Clinical Consultant for Chg Fwd Exam Comprehensive
[2020-10-29 14:09] LABS: Glucose Point of Care 89 mg/dL (70-110)
[2020-10-29 14:12] LABS: Basophils % 0.3 %; Eosinophils % 0.6 %; Hematocrit 47.5 % (42.0-52.0); Hemoglobin 16.2 g/dL (11.7-16.6); Lymphocytes # 1.6 10^3/uL (0.8-4.8); Lymphocytes % 23.7 %; Mean Corpuscular HGB Conc 34.1 g/dL (30.0-36.0); Mean Corpuscular Hemoglobin 30.2 pg (28.0-34.0); Mean Corpuscular Volume 88.6 fL (80-94); Mean Platelet Volume 11.7 fL (7.4-10.4); Monocytes # 0.4 10^3/uL (0.2-0.9); Monocytes % 5.7 %; Neutrophils # 4.75 10^3/uL (1.8-7.7); Neutrophils % 69.6 %; Nucleated Red Blood Cells % 0 %; Red Blood Count 5.36 10^6/uL (4.1-5.3); White Blood Count 6.8 10^3/uL (4.0-10.0)
[2020-10-29 14:21] LABS: INR 0.91 (0.8-1.2)
[2020-10-29] MEDS: iohexol 350 mg/mL 100 mL Btl IV (14:21)
[2020-10-29 14:22] LABS: Partial Thromboplastin Time 27.3 SECONDS (23.9-36.7)
[2020-10-29 14:27] LABS: Alanine Aminotransferase 26 U/L (0-41); Albumin Level 4.3 g/dL (3.5-5.2); Alkaline Phosphatase 76 IU/L (40-130); Blood Urea Nitrogen 15 mg/dL (6-20); Calcium 9.3 mg/dL (8.5-10.5); Carbon Dioxide 27 mmol/L (22-29); Chloride 101 mmol/L (98-107); Globulin 2.1 g/dL (1.3-4.6); Glomerular Filtration Rate 100.4 mL/min (90-130); Glucose 88 mg/dL (65-115); Osmolality Calculated 286 mOsm/kg (285-295); Sodium 138 mmol/L (136-145); Total Bilirubin 0.4 mg/dL (0.15-1.2); Total Protein 6.4 g/dL (6.6-8.7)
[2020-10-29 14:29] LABS: Anion Gap 14.4 (5-19); Aspartate Amino Transferase 25 U/L (0-40); Potassium 4.4 mmol/L (3.5-5.1)
[2020-10-29 14:50] LABS: Platelet Count 192 10^3/cmm (130-400)
[2020-10-29 14:51] LABS: Slide Review Slide Review Perform
--- NOTE | 2020-10-29 15:21 | PC.NURSE ---
patient denied any pain, numbness or tingling at this time.
[2020-10-29 15:30] LABS: Add Urine Microscopic? NO; Charge for UA Resulting for Rev
[2020-10-29 15:37] LABS: Bilirubin Urine Neg (Negative); Blood Urine Neg (Negative); Glucose Urine UA Norm (Normal); Ketones Urine Negative (Negative); Leukocyte Esterase Urine Negative (Negative); Nitrate Urine Negative (Negative); Protein Urine Neg (Negative); Urine Appearance Clear (CLEAR); Urine Color Yellow (Yellow); Urobilinogen Urine Norm (Negative); pH Urine 7 (5-7)
[2020-10-29 15:43] LABS: Amphetamines Screen Urine Negative (Negative); Barbiturates Screen Urine Negative (Negative); Benzodiazepines Screen Urine Negative (Negative); Cocaine Screen Urine Negative (Negative); Opiate Screen Urine Negative (Negative); PCP Screen Urine Negative (Negative); THC Screen Urine Negative (Negative)
--- NOTE | 2020-10-29 16:04 | P.HP_ITS ---
Providers/Chief Complaint Primary Care Provider: Juan Hillman DO Chief Complaint: head and r arm/hand numbness History of Present Illness Wong Alvarez is a 55 year old male with a past medical history of atrial fibrillation, recently discharged with a hospital for A. fib with RVR and NSTEMI, on aspirin 325 and Cardizem, patient advised that he is been taking the medication as prescribed, he tells me that he has been doing well since his hospital discharge, no chest pain, no palpitations, no lightheadedness, dizziness. He tells me that starting this morning at about 7 AM he started to note paresthesias down the left side of his face, left side of his head, left side of his arms, left side of his lower extremity. But he tells me that he he would also alternate and sometimes go over to the right side of his body, right side of the upper extremity, right-sided lower extremity. These paresthesias and numbness, are not shooting pains, he tells me that both sides just did not seem equal and right. No slurring of speech, no facial droop, no weakness, no trouble balancing, no trouble coordinating, no productive or receptive aphasia. In the emergency room he was found to have an NIH stroke scale of 0, EKG shows normal sinus rhythm, head CT shows no acute hemorrhage, head CT does show an asymmetric opacification in density in the distal left petrous ICA favored to be artifact but cannot completely exclude asymmetric plaque or unusual appearance of nonocclusive appearing defect or possible embolus. Dr. Mcgrath spoke to the radiologist, they recommended repeating the CTA of the head starting in the upper neck in addition to two-dimensional MIP and coronal and sagittal reformatted images in 24 hours. Currently when I examined patient, his NIH stroke scale was 0, he was developing some paresthesias in the left side of his head, he also said that he had some numbness in the left lower extremity specifically the left plantar and dorsal aspect of the foot, however the sensation is intact up the felix, intact in the left upper extremity, left neck, left face. Review of Systems Const: Denies: fever(s), chills, fatigue or malaise Eyes: Denies: change in vision or blurry vision ENMT: Denies: nasal congestion Card: Denies: chest pain, palpitations, irregular heart rhythm, edema, lightheadedness, syncope or dyspnea on exertion Resp: Denies: dyspnea, productive cough, non-productive cough or wheezing GI: Denies: abdominal pain, nausea, vomiting, hematemesis, diarrhea, constipation, hematochezia or melena : Denies: flank pain, difficulty urinating, dysuria or urinary frequency Musc: Denies: neck pain or back pain Skin/Breast: Denies: rash Neuro: Reports: numbness in extremities and sensory changes; Denies: headache(s), weakness in extremities, lack of coordination, difficulty walking, frequent falls, dizziness, vertigo, confusion, Slurred speech present, difficulty communicating thoughts, seizure-like activity, involuntary movements or restless legs Psych: Denies: anxiety or depression Endo: Denies: polyuria or polydipsia Medications/Allergies Home Medications Medication Instructions Recorded Confirmed Last Taken Type multivitamin 1 tab PO DAILY@0910/27/20 10/29/20 10/29/20 History aspirin 325 mg PO DAILY@199910/29/20 10/29/20 10/28/20 History atorvastatin 40 mg PO DAILY@0910/29/20 10/29/20 10/29/20 History diltiazem HCl [Cardizem LA] 120 mg PO DAILY@0700 10/29/20 10/29/20 10/29/20 History Allergies Allergy/AdvReac Type Severity Reaction Status Date / Time sulfamethoxazole Allergy Severe algy-hives Verified 10/29/20 12:10 [From Bactrim] trimethoprim [From Bactrim] Allergy Severe algy-hives Verified 10/29/20 12:10 PFSH Acute PFSH: Medical History Chronic prostatitis No pertinent past medical history Right thyroid nodule Tick bite Surgical History History of appendectomy Family History Father , at age 95 Arrhythmia Mother , at age 82 Heart disease Social History Smoking and tobacco status: never smoked Alcohol intake: never Lives independently: Yes Household members: spouse Marital status: Current occupational status: employed History of recent travel: No Vitals/I&O/Wt Last Vital Signs Temp 98.5 F 10/29/20 12:11 Pulse 72 10/29/20 15:20 Resp 18 10/29/20 15:20 BP 121/83 10/29/20 15:20 Pulse Ox 97 10/29/20 15:20 Weight last 48 hrs Weight 88.451 kg Physical Exam Const: COMMON NORMALS: no acute distress and patient oriented x3 GENERAL APPEARANCE: cooperative and comfortable HENMT: COMMON NORMALS: normocephalic HEAD & SCALP: normocephalic Eye: COMMON NORMALS: Equal, round and reactive pupils present and EOMs intact bilaterally GENERAL EYE: appearance normal, both eyes and all related s tructures PUPIL: Yes Equal, round and reactive pupils present Neck/C-Spine: COMMON NORMALS: full ROM, no lymphadenopathy, no JVD and Thyroid normal THYROID: Thyroid normal Lymph: LYMPHATIC: no lymphadenopathy noted Resp: COMMON NORMALS: normal respiratory effort, No retractions, No use of accessory muscles and clear to auscultation bilaterally AUSCULTATION: clear to auscultation bilaterally Cardio: COMMON NORMALS: no JVD, regular rate, regular rhythm, S1 normal heart sound present, S2 normal heart sound present, No gallops present (Cardio), No clicks present (Cardio) and No murmurs present (Cardio) RATE: regular rate RHYTHM: regular rhythm HEART SOUNDS: S1 normal heart sound present and S2 normal heart sound present GI: COMMON NORMALS: Normal to inspection, nondistended, normoactive bowel sounds present, Soft to palpation, non-tender and No hepatosplenomegaly present PALPATION: Yes Soft to palpation and Yes No hepatosplenomegaly present Extremity: COMMON NORMALS: normal to inspection, full ROM and no pedal edema Neuro: COMMON NORMALS: patient oriented x3, CN's II-XII intact bilaterally, moves all extremities and no focal motor deficits OTHER: -Currently has numbness in left plantar and dorsal aspect of the left foot, and all the digits, which stops at the level of the ankle -Currently having paresthesias on the left side of his head, left frontal, occipital, temporal region, not particularly in the facial region Psych: COMMON NORMALS: mental status grossly normal, Normal thought process present and cooperative THOUGHT PROCESS: Normal thought process present Data : 10/29/20 13:48 10/29/20 13:48 A&P Assessment and plan (1) Acute CVA (cerebrovascular accident): -Acute CVA versus transient ischemic attack -Currently NIH stroke scale of 0, but does have numbness in the dorsal and plantar aspect of the left foot, has paresthesias in the left side of his head -But does state that the symptoms go away and alternate between the right and left side of the body -No neck pain, no neck injuries, does have chronic back pain -EKG shows normal sinus rhythm -CTA of the head and neck showed: Asymmetric opacification in density in distal left petrous ICA favored to be artifact but cannot completely exclude asymmetric plaque or unusual appearance nonocclusive appearing defect. Determine clinically if patient should be anticoagulated for new onset atrial fibrillation. Would recommend repeat CTA of head starting in upper neck and in addition to two-dimensional and MIP coronal and sagittal reformatted images, consider 3 dimensional reformatted images. -Clinically this sounds like acute CVA, however he is alternating symptoms are not classic, and currently his numbness and paresthesias which are on the left side, do not correlate with the radiographic findings on CTA -However given his clinical symptomatology going from normal to not normal, developed these paresthesias are concerning for possible embolic phenomena related to his A. fib with RVR, which was recently admitted for, and he was noncompliant with antiplatelet therapy and rate control therapy, so certainly possible that he has embolized Plan: -For now admit to general medical floors -PT OT -Neurochecks, aspiration precautions, seizure precautions, aspiration precautions -Continue aspirin, statin -Continue Cardizem -Allow for permissive hypertension for the next 24 hours -Treat systolic blood pressure of greater than 220, diastolic is greater than 120 -Normal saline at 75 cc an hour -As there is a question about possibly a thrombus as the culprit behind the radiographic finding, given the asymmetric opacification the density in the distal left petrosal ICA, I will start him on therapeutic Lovenox for A. fib with possible embolic phenomenon -However will talk to our radiology department tomorrow morning, go over scans with our radiology department -I will talk to our neurology department -Depending on how patient's symptoms do tomorrow, and specialist input, decide if we need to do further imaging, repeat CTA -Full code -Lovenox for DVT prophylaxis Status: Acute (2) Atrial fibrillation: Status: Acute Attestations Medical Necessity Statement*: Patient course hospitalization, outpatient with observation, for acute CVA Coding Level of Care Code Acute Reporting Specialist for Lilli Gomez Diagnoses Acute CVA (cerebrovascular accident) I63.9 Atrial fibrillation I48.91
--- NOTE | 2020-10-29 16:45 | PC.NURSE ---
attempted to call report, call back pending
[2020-10-29] MEDS: enoxaparin 100 mg/mL Syringe 90 MG SUBCUT (17:41)
[2020-10-29] MEDS: sodium chloride 0.9% 1,000 ML 75 ML IV (17:42)
[2020-10-29] MEDS: aspirin 325 mg EC Tablet PO (17:42)
--- NOTE | 2020-10-29 18:43 | PC.NURSE ---
FROM ER UP FROM ER VIA W/C WITH DARIEN SERRANO AT SIDE - ASST TO BED - ORIENTATION TO ROOM PROVIDED - NIHSS AND ADMISSION NOTED - SEE FOR DETAILS - UPON ENTERING HOSPITAL PT WAS COMPLAINING OF SREE ARM AND FACIAL NUMBNESS AND TINGLING - PT STATES NO FURTHER ISSUES - WILL MONITOR
[2020-10-29 21:49] LABS: Glucose Point of Care 103 mg/dL (70-110)
[2020-10-30] VITALS (8 sets, daily range): BP systolic 114–126; BP diastolic 69–78; PULSE 58–72; RESP 18–20; TEMP 36.2–37.1; O2SAT 96–98
[2020-10-30] MEDS: dilTIAZem ER (24HR) 120 mg Capsule PO (06:12)
[2020-10-30] MEDS: enoxaparin 100 mg/mL Syringe 90 MG SUBCUT (06:13)
[2020-10-30] MEDS: sodium chloride 0.9% 1,000 ML 75 ML IV (06:13)
[2020-10-30 08:01] LABS: Basophils % 0.4 %; Eosinophils % 0.9 %; Hematocrit 44.8 % (42.0-52.0); Hemoglobin 15.2 g/dL (11.7-16.6); Lymphocytes # 1.7 10^3/uL (0.8-4.8); Lymphocytes % 37.4 %; Mean Corpuscular HGB Conc 33.9 g/dL (30.0-36.0); Mean Corpuscular Hemoglobin 30.3 pg (28.0-34.0); Mean Corpuscular Volume 89.2 fL (80-94); Mean Platelet Volume 10.7 fL (7.4-10.4); Monocytes # 0.4 10^3/uL (0.2-0.9); Monocytes % 9.7 %; Neutrophils # 2.32 10^3/uL (1.8-7.7); Neutrophils % 51.4 %; Nucleated Red Blood Cells % 0 %; Platelet Count 201 10^3/cmm (130-400); Red Blood Count 5.02 10^6/uL (4.1-5.3); Red Cell Distribution Width 12.1 % (12.1-15.1); White Blood Count 4.5 10^3/uL (4.0-10.0)
[2020-10-30] MEDS: pantoprazole DR 40 mg Tablet PO (08:20)
[2020-10-30] MEDS: atorvastatin 40 mg Tablet PO (08:20)
[2020-10-30] MEDS: multivitamin therapeutic Tablet 1 TAB PO (08:20)
[2020-10-30 08:23] LABS: Alanine Aminotransferase 22 U/L (0-41); Albumin Level 3.9 g/dL (3.5-5.2); Alkaline Phosphatase 74 IU/L (40-130); Anion Gap 12.3 (5-19); Aspartate Amino Transferase 15 U/L (0-40); Blood Urea Nitrogen 14 mg/dL (6-20); Calcium 8.7 mg/dL (8.5-10.5); Carbon Dioxide 27 mmol/L (22-29); Chloride 106 mmol/L (98-107); Chol HDL Ratio 6.22 mg/dL (1.0-5.00); Cholesterol 230 mg/dL (0-200); Globulin 2.3 g/dL (1.3-4.6); Glomerular Filtration Rate 139.9 mL/min (90-130); Glucose 90 mg/dL (65-115); HDL Cholesterol 37 mg/dL (60-100); LDL Cholesterol Calculated 156 mg/dL (50-129); LDL HDL Ratio 4.22 RATIO (0.00-3.22); Osmolality Calculated 292 mOsm/kg (285-295); Phosphorus 3.5 mg/dL (2.5-4.5); Potassium 4.3 mmol/L (3.5-5.1); Sodium 141 mmol/L (136-145); Total Bilirubin 0.3 mg/dL (0.15-1.2); Total Protein 6.2 g/dL (6.6-8.7); Triglycerides 185 mg/dL (0-150)
--- NOTE | 2020-10-30 10:40 | PM.DCS ---
Discharge Providers Date of Admission: 10/29/20 15:29 Date of Discharge: October 30, 2020 Attending Provider at Admission: Geovanny Blancas MD Attending Provider at Discharge: Liz Jones MD Primary Care Provider: Juan Hillman DO Diagnoses at Discharge Discharge Diagnosis (1) Paresthesia: Status: Acute (2) Transient ischemic attack: Status: Acute (3) Carotid thrombosis, left: Status: Acute (4) Atrial fibrillation: Status: Chronic Permanent problem details: chronic, paroxysmal; xarelto initiated 10/2020 Qualifiers: Atrial fibrillation type: paroxysmal Qualified Code(s): I48.0 - Paroxysmal atrial fibrillation (5) Hyperlipidemia: Status: Chronic Qualifiers: Hyperlipidemia type: mixed hyperlipidemia Qualified Code(s): E78.2 - Mixed hyperlipidemia (6) Right thyroid nodule: Status: Chronic Permanent problem details: per thyroid US 01/2020 measures 7.4 x 3.5 x 4.6 CM Other Information Additional DC diagnoses/information: Started on Xarelto this stay Continued on cardizem started last stay Atorvastatin dose started last stay decreased based on discussion with patient concerning side effects Needs repeat evaluation of carotids with either another CTA neck or MRA neck at some point next couple months Needs repeat evaluation of thyroid nodule noted last year, fine needle aspiration recommended then but with anticoagulation initiation recommend follow op of carotids first. Reason for Visit Reason for Visit: head and arm/hand numbness Hospital Course Hospital Course Mr. Gonsales to the emergency room with some paresthesias. Some are located on the left side some are located on the right side. Involve both his face as well as his arms and legs at times. Initial NIH score was 0. No motor or other neurological deficits described. He was admitted to a medical bed. Serial neuro exams were done and NIH score remained 0. CTA of the head neck was done and appeared to show some thrombus formation in the distal petrous left ICA. Study was not conclusive but I reviewed with radiology here who did think that it was real but unable to be quantified further. I discussed with neurology. Given patient's mild symptoms and NIH score of 0 would not be a candidate for intervention in this setting. I talked to him for quite a while about atrial fibrillation which I suspect is probably paroxysmal atrial fibrillation. Review of previous event monitors does show that he has had some episodes of atrial fibrillation that were asymptomatic. He has had a couple of admissions now with [facility] with [facility]. I talked to him about how anticoagulation in this setting is used to try to prevent somebody from having a significant thromboembolic event such as a more severe stroke. Xarelto at our pharmacy under the 340 B program only cost $15 a month. He was agreeable to this and was happy with it being once a day dosing. I discussed the simvastatin and Cardizem that were started last hospital stay. Patient was concerned that some of his symptoms may be related to statin therapy. I did decrease dosing of 40 mg down to 20 mg a day for the time being. He is to continue the Cardizem long-acting 120 mg a day. He was evaluated with PT and had no gait abnormalities. He had one episode of paresthesias on the left side of his ear during my evaluation that lasted a few seconds and resolved without intervention. We did talk about the possibility that particularly the paresthesias in his scalp could be a prelude to skin lesions such as shingles. Would not account for everything that he has been experiencing. He have further neurological symptoms develop he should return to the emergency room. He was eager to get home and take care of things and without progressive symptoms was okay with plan for discharge home. Would reevaluate carotids with CTA of the neck, dedicated, in a couple of months. He has a known history of a thyroid nodule that has not been further evaluated. Given initiation of anticoagulation would want to reevaluate carotids before considering holding anticoagulation for an FNA but that should be followed up as well. Was stopped at his request since anticoagulation was being started. It was a trade off. Of course in the setting of potential for cerebrovascular disease antiplatelet therapy would also be beneficial but I am trying to come up with a medication regimen that he is more likely to stay with chronically. I discussed with him that he does in fact have high cholesterol and the interplay of this in terms of increasing risk of stroke. Patient was given an opportunity to ask questions and he had some that were very good which I answered. To him that I have ordered for follow-up with cardiology with Dr. Rocha who saw him last week particularly to follow-up the carotid artery disease in addition to paroxysmal atrial fibrillation and initiation of anticoagulation. I reviewed with Dr. New prior to patient's discharge. Alternatively he can follow-up with Dr. Hillman but does need to have further evaluation and monitoring as described. Physical Exam Narrative: EXAM NARRATIVE: Awake and alert, no acute distress, oriented x3, seen initially walking from the bathroom to the bed without any gait abnormalities noted. Extraocular movements are intact. Tongue midline. Handgrip is equal. Sensation is intact to light touch at both ears, both cheeks, both wrist and distal fingers, toes on both sides of each foot. No abnormal movements are noted. Speech is clear, face symmetric. Clear to auscultation bilaterally. Currently with a regular rate and rhythm. Discharge Data Data Completed and Pending: Completed Studies During Hospitalization Category Date Time Status CT angio headneck * [id number] Stat Cat Scan 10/29/20 13:[address] head wo con* [id number] Stat Cat Scan 10/29/20 13:23 Completed Laboratory Last Values WBC 4.5 10^3/uL (4.0- 10.0) 10/30/20 06:28 RBC 5.02 10^6/uL (4.1 -5.3) 10/30/20 06:28 Hgb 15.2 g/dL (11.7-1 6.6) 10/30/20 06:28 Hct 44.8 % (42.0-52.0 ) 10/30/20 06:28 MCV 89.2 fL (80-94) 10/30/20 06:28 MCH 30.3 pg (28.0-34. 0) 10/30/20 06:28 MCHC 33.9 g/dL (30.0-3 6.0) 10/30/20 06:28 RDW 12.1 % (12.1-15.1 ) 10/30/20 06:28 Plt Count 201 10^3/cmm (130 -400) 10/30/20 06:28 MPV 10.7 fL (7.4-10.4 ) H 10/30/20 06:28 Neut % (Auto) 51.4 % 10/30/20 06:28 Lymph % (Auto) 37.4 % 10/30/20 06:28 Pitt % (Auto) 9.7 % 10/30/20 06:28 Eos % (Auto) 0.9 % 10/30/20 06:28 Baso % (Auto) 0.4 % 10/30/20 06:28 Neut # (Auto) 2.32 10^3/uL (1.8 -7.7) 10/30/20 06:28 Lymph # (Auto) 1.7 10^3/uL (0.8- 4.8) 10/30/20 06:28 Pitt # (Auto) 0.4 10^3/uL (0.2- 0.9) 10/30/20 06:28 Eos # (Auto) 0.0 10^3/uL (0.0- 0.8) 10/30/20 06:28 Baso # (Auto) 0.0 10^3/uL (0.0- 0.1) 10/30/20 06:28 Nucleated RBC % (a uto) 0 % 10/30/20 06:28 Nucleated RBCs # 0.0 /100WBC 10/30/20 06:28 PT 12.50 SECONDS (12 .1-14.9) 10/29/20 13:48 INR 0.91 (0.8-1.2) 10/29/20 13:48 APTT 27.3 SECONDS (23. 9-36.7) 10/29/20 13:48 Sodium 141 mmol/L (136-1 45) 10/30/20 06:28 Potassium 4.3 mmol/L (3.5-5 .1) 10/30/20 06:28 Chloride 106 mmol/L (98-10 7) 10/30/20 06:28 Carbon Dioxide 27 mmol/L (22-29) 10/30/20 06:28 Anion Gap 12.3 (5-19) 10/30/20 06:28 BUN 14 mg/dL (6-20) 10/30/20 06:28 Creatinine 0.6 mg/dL (0.7-1. 2) L 10/30/20 06:28 GFR Calculation 139.9 mL/min (90- 130) H 10/30/20 06:28 Glucose 90 mg/dL (65-115) 10/30/20 06:28 POC Glucose 103 mg/dL (70-110 ) 10/29/20 19:55 Calculated Osmolal ity 292 mOsm/kg (285- 295) 10/30/20 06:28 Calcium 8.7 mg/dL (8.5-10 .5) 10/30/20 06:28 Phosphorus 3.5 mg/dL (2.5-4. 5) 10/30/20 06:28 Magnesium 2.0 mg/dL (1.7-2. 3) 10/30/20 06:28 Total Bilirubin 0.3 mg/dL (0.15-1 .2) 10/30/20 06:28 AST 15 U/L (0-40) 10/30/20 06:28 ALT 22 U/L (0-41) 10/30/20 06:28 Alkaline Phosphata se 74 IU/L (40-130) 10/30/20 06:28 Total Protein 6.2 g/dL (6.6-8.7 ) L 10/30/20 06:28 Albumin 3.9 g/dL (3.5-5.2 ) 10/30/20 06:28 Globulin 2.3 g/dL (1.3-4.6 ) 10/30/20 06:28 Triglycerides 185 mg/dL (0-150) H 10/30/20 06:28 Cholesterol 230 mg/dL (0-200) H 10/30/20 06:28 LDL Cholesterol, C alc 156 mg/dL (50-129 ) H 10/30/20 06:28 HDL Cholesterol 37 mg/dL (60-100) L 10/30/20 06:28 LDL/HDL Ratio 4.22 RATIO (0.00- 3.22) H 10/30/20 06:28 Cholesterol/HDL Ra tracey 6.22 mg/dL (1.0-5 .00) H 10/30/20 06:28 Urine Color Yellow (Yellow) 10/29/20 15:15 Urine Appearance Clear (CLEAR) 10/29/20 15:15 Urine pH 7 (5-7) 10/29/20 15:15 Ur Specific Gravit y 1.010 (1.005-1.0 30) 10/29/20 15:15 Urine Protein Neg (Negative) 10/29/20 15:15 Urine Glucose (UA) Norm (Normal) 10/29/20 15:15 Urine Ketones Negative (Negati ve) 10/29/20 15:15 Urine Blood Neg (Negative) 10/29/20 15:15 Urine Nitrate Negative (Negati ve) 10/29/20 15:15 Urine Bilirubin Neg (Negative) 10/29/20 15:15 Urine Urobilinogen Norm mg/dL (Negat ginny) 10/29/20 15:15 Ur Leukocyte Mayra ase Negative (Negati ve) 10/29/20 15:15 Urine Opiates Scre en Negative ng/mL (N egative) 10/29/20 15:15 Ur Barbiturates Sc reen Negative ng/mL (N egative) 10/29/20 15:15 Ur Phencyclidine S crn Negative ng/mL (N egative) 10/29/20 15:15 Ur Amphetamines Sc reen Negative ng/mL (N egative) 10/29/20 15:15 U Benzodiazepines Scrn Negative ng/mL (N egative) 10/29/20 15:15 Urine Cocaine Scre en Negative ng/mL (N egative) 10/29/20 15:15 U Marijuana (THC) Screen Negative ng/mL (N egative) 10/29/20 15:15 Imaging^: CT Head: Radiologist's impression: FINDINGS: Brain: There is no acute intracranial hemorrhage. No extra-axial fluid collection. No evidence of acute infarct. Harding white differentiation is intact. There is no evidence of mass. There is no mass effect or midline shift. Cerebral ventricles: No ventriculomegaly. Bones/joints: No acute fracture. Paranasal sinuses: Visualized sinuses are unremarkable. No fluid levels. Mastoid air cells: No significant mastoid effusion. Soft tissues: Unremarkable as visualized. CT/CT head wo con* [id number] IMPRESSION: No evidence of acute intracranial abnormality. No acute hemorrhage. No evidence of acute infarct or mass. CTA head/neck: Radiologist's impression: HEAD FINDINGS: ANTERIOR CIRCULATION: Right internal carotid artery: There is calcification of the intracranial right internal carotid artery. No significant degrees of stenosis or occlusion. No evidence of aneurysm. Right middle cerebral artery: Unremarkable. No occlusion or significant stenosis. No aneurysm. Right anterior cerebral artery: Unremarkable. No occlusion or significant stenosis. No aneurysm. Left internal carotid artery: There is calcification of the intracranial left internal carotid artery. There is asymmetric appearance in the distal left petrous internal carotid artery at junction with pre cavernous segment with area of central low density which is similar to the right side most distally but asymmetric enhancement/density in the most distal horizontal petrous segment. This is suspected to likely be artifact as there is some similar artifact in mid aspect of right petrous ICA. However, cannot completely exclude asymmetric plaque or unusual appearance of filling defect related to small and nonocclusive thrombus. No evidence of aneurysm. Left middle cerebral artery: Unremarkable. No occlusion or significant stenosis. No aneurysm. Left anterior cerebral artery: Unremarkable. No occlusion or significant stenosis. No aneurysm. POSTERIOR CIRCULATION: Right vertebral artery: Unremarkable. No occlusion or significant stenosis. No aneurysm. Left vertebral artery: Unremarkable. No occlusion or significant stenosis. No aneurysm. Basilar artery: Unremarkable. No occlusion or significant stenosis. No aneurysm. Right posterior cerebral artery: Unremarkable. No occlusion or significant stenosis. No aneurysm. Left posterior cerebral artery: Unremarkable. No occlusion or significant stenosis. No aneurysm. Brain: No definite mass, mass effect, or midline shift. Cerebral ventricles: No ventriculomegaly. Bones/joints: Unremarkable. No acute fracture. Soft tissues: Unremarkable. IMPRESSION: Asymmetric opacification in density in distal left petrous ICA favored to be artifact but cannot completely exclude asymmetric plaque or unusual appearance nonocclusive appearing defect. Determine clinically if patient should be anticoagulated for new onset atrial fibrillation. Would recommend repeat CTA of head starting in upper neck and in addition to two-dimensional and MIP coronal and sagittal reformatted images, consider 3 dimensional reformatted images. NECK FINDINGS: ANTERIOR CIRCULATION: Right internal carotid artery: There is calcification of the intracranial right internal carotid artery. No significant degrees of stenosis or occlusion. No evidence of aneurysm. Right middle cerebral artery: Unremarkable. No occlusion or significant stenosis. No aneurysm. Right anterior cerebral artery: Unremarkable. No occlusion or significant stenosis. No aneurysm. Left internal carotid artery: There is calcification of the intracranial left internal carotid artery. There is asymmetric appearance in the distal left petrous internal carotid artery at junction with pre cavernous segment with area of central low density which is similar to the right side most distally but asymmetric enhancement/density in the most distal horizontal petrous segment. This is suspected to likely be artifact as there is some similar artifact in mid aspect of right petrous ICA. However, cannot completely exclude asymmetric plaque or unusual appearance of filling defect related to small and nonocclusive thrombus. No evidence of aneurysm. Left middle cerebral artery: Unremarkable. No occlusion or significant stenosis. No aneurysm. Left anterior cerebral artery: Unremarkable. No occlusion or significant stenosis. No aneurysm. POSTERIOR CIRCULATION: Right vertebral artery: Unremarkable. No occlusion or significant stenosis. No aneurysm. Left vertebral artery: Unremarkable. No occlusion or significant stenosis. No aneurysm. Basilar artery: Unremarkable. No occlusion or significant stenosis. No aneurysm. Right posterior cerebral artery: Unremarkable. No occlusion or significant stenosis. No aneurysm. Left posterior cerebral artery: Unremarkable. No occlusion or significant stenosis. No aneurysm. Brain: No definite mass, mass effect, or midline shift. Cerebral ventricles: No ventriculomegaly. Bones/joints: Unremarkable. No acute fracture. Soft tissues: Unremarkable. IMPRESSION: Asymmetric opacification in density in distal left petrous ICA favored to be artifact but cannot completely exclude asymmetric plaque or unusual appearance nonocclusive appearing defect. Determine clinically if patient should be anticoagulated for new onset atrial fibrillation. Would recommend repeat CTA of head starting in upper neck and in addition to two-dimensional and MIP coronal and sagittal reformatted images, consider 3 dimensional reformatted images. Vitals: Last Vital Signs Temp 97.9 F 10/30/20 07:24 Pulse 64 10/30/20 07:24 Resp 18 10/30/20 07:24 BP 121/69 10/30/20 07:24 Pulse Ox 97 10/30/20 07:24 Discharge Plan Discharge Patient Disposition: Home Condition: Stable Prescriptions: New Xarelto 20 mg tablet 20 mg PO DAILY Qty: 30 RF: 0 Continued Cardizem LA 120 mg tablet extended release 24 hr 120 mg PO DAILY@0700 RF: 0 multivitamin Tablet 1 tab PO DAILY@0900 RF: 0 Changed atorvastatin 40 mg tablet 20 mg PO DAILY@0900 Qty: 0 RF: 0 Discontinued aspirin 325 mg tablet,delayed release (DR/EC) 325 mg PO DAILY@2000 RF: 0 Discharge Orders: Discharge Order (Routine); Ordered 10/30/20 Ordered By: Liz Jones Referrals: Juan Hillman DO [Primary Care Provider] - 11/03/20 10:00 am (hospital follow up, re-evaluate symptoms, heart rhythm, medications follow up, started xarelto) Paul New M.D [Physician] - 11/13/20 3:30 pm (paroxysmal atrial fibrillation, carotid thrombus, initiated xarelto) Discharge Diet: Cardiac Discharge Activity: Resume usual activity Patient Instructions: Rivaroxaban (By mouth), Atrial Fibrillation (DC), Carotid Artery Disease (DC), Hyperlipidemia (DC), TIA Activity Restrictions/Additional Instructions: You have been found to have what appears to be some thrombus (clot) in distal left pertous cartoid artery. While study not conclusive, with the symptoms of numbess you are experiencing combined with history of atrial fibrillation, we have started you on Xarelto, a blood thiner. The purpose of this medication is to help prevent further clot formation and chance of stroke with significant neurological symptoms (paralysis and the like). Atrial fibrillation is an abnormal rhythm which can cause blood clots to form in heart leading to strokes. You have had previous event monitors which showed episodes of atrial fibrillation you are NOT aware of on review of reports. Sometimes you are aware as you described. It is important to stay on blood thinners (Xarelto) and rate controlling medications (cardizem) to decrease risk of future stroke. You also do have elevated cholesterol. Total cholesterol high at 230 (goal less than 200), HDL low at 37 (want as high as can be, more than 60 ideal), LDL high at 156 (goal less than 130). Triglycerides also high at 185 (goal less than 150). You can follow a low cholesterol diet, exercise to help decrease cholesterol. While the 40 mg day dose you were started on is not inappropriate, I have decreased dose to 20 mg per day given symptoms described. May require higher dose in future. Keeping cholesterol under control is another way to decrease risk of stroke. I have requested follow up with cardiology to follow the carotid thrombus and atrial fibrillation, particularly in light of fact that management for these conditions is likely to be lifelong. If you choose to not follow with cardiology, please discuss with Dr Hillman. Recommend repeat carotid evaluation in a few months. Discharge Attestations Time Spent in Discharge Care*: greater than 30 min Specific Discharge Activities: educating patient, discussing with pcp/other providers, discussing with caser up/social workers/dc planners, documenting/other paperwork and evaluating patient/reviewing data Status at Discharge: Cognitive status at discharge: cognitively intact, Behavioral status at discharge: cooperative, Functional status at discharge: independent ambulation Overall status at discharge: patient is progressing back to baseline Quality Metrics Clinical Quality Measures During this hospital stay, did patient experience: Stroke Contraindication to Antithrombotic: Patient requests alternative treatment Contraindication to Anticoagulation: Anticoagulation prescribed Contraindication to Statin: Statin prescribed Coding Level of Care Code Acute [facility] DC note Diagnoses Paresthesia R20.2 Transient ischemic attack G45.9 Carotid thrombosis, left I65.22 Atrial fibrillation I48.0 Atrial fibrillation type: paroxysmal Hyperlipidemia E78.2 Hyperlipidemia type: mixed hyperlipidemia Right thyroid nodule E04.1
--- NOTE | 2020-10-30 11:59 | PC.NURSE ---
Patient was discharged. This nurse went over all discharge instructions and patient verbalized understanding. Meds were delivered to the patient before he left. Patient ambulated with the aid out to a private vehicle.
[2020-10-30 12:18] LABS: Estmated Average Glucose 108; Hemoglobin A1C 5.4 % (4.0-6.0)
== END 2020-10-30 11:50 | disposition home or self-care (01) ==
LOC: ER 15:36 → MEDSURG 10-30 06:05
PROVIDERS: Admitting Provider Family Medicine; Emergency Provider Family Medicine; PCP Family Medicine; Visit Provider Hospitalist
DX: I63.9 Cerebral infarction, unspecified (principal); R20.2 Paresthesia of skin; I65.22 Occlusion and stenosis of left carotid artery; I48.0 Paroxysmal atrial fibrillation; E78.2 Mixed hyperlipidemia; E04.1 Nontoxic single thyroid nodule; Z79.01 Long term (current) use of anticoagulants; E78.5 Hyperlipidemia, unspecified; Z79.82 Long term (current) use of aspirin
CPT/HCPCS: 36415; 36416; 70450; 70496; 70498; 80053; 80061; 80306; 81003; 82962; 83036; 83735; 84100; 85025; 85610; 85730; 93005; 96360; 96361; 96372; 97161; 99285; G0378; J1650; J7030; Q9967

== ENCOUNTER → 2021-01-26 13:02 | Outpatient (BNVA) | payer SELFPAY | PROVIDERS: PCP Family Medicine; Visit Provider Family Medicine | DX: R30.0 Dysuria (principal); N39.0 Urinary tract infection, site not specified; N41.1 Chronic prostatitis | CPT/HCPCS: 81003; 87077; 87086; 87184 ==

== ENCOUNTER → 2021-05-08 00:01 | Outpatient (BNVA) | payer SELFPAY | PROVIDERS: PCP Family Medicine; Visit Provider Nurse Practitioner Family | DX: E78.2 Mixed hyperlipidemia (principal); Z12.5 Encounter for screening for malignant neoplasm of prostate; I48.91 Unspecified atrial fibrillation; Z68.24 Body mass index [BMI] 24.0-24.9, adult | CPT/HCPCS: 80053; 80061; G0103 ==

== ENCOUNTER 2021-07-11 01:04 | Emergency (ER) | payer SELFPAY ==
--- NOTE | 2021-07-11 01:07 | ECG_ITS ---
[facility] Test Date: 2021-07-11 Pat Name: Wong Alvarez Department: Room: Gender: Male Service Advocate Contact: : 1965 Requested By: Sarah Hackett Order Number: [id number] Shanna MD: Paul New M.D. Measurements Intervals [place] Rate: 138 P: CT: QRS: 74 QRSD: 101 T: 64 QT: 277 QTc: 421 Interpretive Statements ATRIAL FIBRILLATION WITH RAPID VENTRICULAR RESPONSE MINIMAL ST DEPRESSION [0.025+ mV ST DEPRESSION] Compared to ECG 10/29/2020 13:29:08 ST (T wave) deviation now present Sinus rhythm no longer present Electronically Signed On 07-12-2021 8:52:50 [employer]PERATIONS ENGINEER by Paul New M.D. [id number]
[2021-07-11 01:12] VITALS: BP 129/80; PULSE 110; RESP 18; TEMP 36.4; O2SAT 95; BMI 22.8
--- NOTE | 2021-07-11 01:27 | ED_ITS ---
HPI - General Adult General: Chief complaint: General Medical Stated complaint: possible heart beats irregular Time Seen by Provider: 07/11/21 01:06 Source: patient Mode of arrival: ambulatory Limitations: no limitations History of Present Illness: HPI narrative: 56-year-old male history of A. fib states that recently developed lightheadedness heart rate started racing started feeling anxious over he said this is happened like this in the past denies any chest pain denies any shortness of breath denies any worsening proving factors he is on Cardizem at home he has been taking this scheduled. No vomiting no diarrhea no fever no recent illness Associated symptoms: Reports palpitations; Deny dyspnea, headache(s), nausea, rash or vomiting Review of Systems Const: Denies: fever(s), chills, body aches or change in appetite Eyes: Denies: blurry vision or eye discomfort ENMT: Denies: throat pain or dental pain Card: Reports: palpitations and irregular heart rhythm Resp: Denies: dyspnea GI: Denies: abdominal pain, nausea, vomiting or diarrhea : Denies: dysuria Musc: Denies: neck pain or back pain Skin/Breast: Denies: rash Neuro: Denies: headache(s) Psych: Denies: depression Khai/Lymph: Denies: easy bruising All/Imm: Denies: urticaria PFSH ED PFSH: Medical History Atrial fibrillation chronic, paroxysmal; xarelto initiated 10/2020 Carotid thrombosis, left Chronic prostatitis Hyperlipidemia Right thyroid nodule per thyroid US 01/2020 measures 7.4 x 3.5 x 4.6 CM Tick borne fever (~2019) Transient ischemic attack (~10/2020) Surgical History History of appendectomy Family History Father , at age 95 Arrhythmia Mother , at age 82 Heart disease Social History Smoking and tobacco status: never smoked Alcohol intake: never Lives independently: Yes Household members: spouse Marital status: Current occupational status: employed History of recent travel: No Physical Exam Const: COMMON NORMALS: no acute distress, patient oriented x3 and healthy appearing HENMT: COMMON NORMALS: normocephalic and atraumatic HEAD & SCALP: normocephalic and atraumatic Eye: COMMON NORMALS: Equal, round and reactive pupils present and EOMs intact bilaterally PUPIL: Yes Equal, round and reactive pupils present Neck/C-Spine: COMMON NORMALS: full ROM and supple Chest: COMMONS NORMALS: normal inspection of the chest and normal palpation of entire chest wall Resp: COMMON NORMALS: normal respiratory effort, No retractions, No use of accessory muscles and clear to auscultation bilaterally AUSCULTATION: clear to auscultation bilaterally Cardio: COMMON NORMALS: No murmurs present (Cardio) RATE: tachycardic RHYTHM: abnormal rhythm irregularly irregular GI: COMMON NORMALS: Normal to inspection, nondistended, normoactive bowel sounds present, Soft to palpation, non-tender and no masses PALPATION: Yes Soft to palpation Extremity: COMMON NORMALS: normal to inspection and full ROM Neuro: COMMON NORMALS: patient oriented x3, moves all extremities and no focal motor deficits Psych: COMMON NORMALS: mental status grossly normal, Normal thought process present and cooperative THOUGHT PROCESS: Normal thought process present Skin: COMMON NORMALS: no rashes or lesions noted and no wounds GENERAL SKIN EXAM: no rashes or lesions noted Course Vital Signs: Vital signs: Vital Signs Temperature 97.5 F L 07/11/21 01:12 Pulse Rate 88 07/11/21 03:19 Respiratory Rate 18 07/11/21 02:51 Blood Pressure 127/65 07/11/21 02:51 Pulse Oximetry 98 07/11/21 03:19 MDM - General Adult MDM Narrative: Medical decision making narrative: Patient presents with A. fib with RVR that is improved here with Cardizem his heart rates now in the 80s he feels improved blood work is all normal he did have any chest pain no signs of pulmonary embolism he is stable for discharge is to return if worsening he understands agrees to plan. Lab Data: Labs: Lab Results 07/11/21 07/11/21 01:30 01:30 WBC 7.5 10^3/uL 10^3/ uL (4.0-10.0) RBC 5.15 10^6/uL 10^6 /uL (4.1-5.3) Hgb 15.9 g/dL g/dL (11.7-16.6) Hct 46.1 % % (42.0-52.0) MCV 89.5 fl fl (80-94) MCH 30.9 pg pg (28.0-34.0) MCHC 34.5 g/dL g/dL (30.0-36.0) RDW 11.9 % L % (12.1-15.1) Plt Count 212 10^3/cmm 10^3 /cmm (130-400) MPV 10.5 fL H fL (7.4-10.4) Neut % (Auto) 66.2 % % Lymph % (Auto) 23.9 % % [place] % (Auto) 8.7 % % Eos % (Auto) 0.8 % % Baso % (Auto) 0.3 % % Neut # (Auto) 4.97 10^3/uL 10^3 /uL (1.8-7.7) Lymph # (Auto) 1.8 10^3/uL 10^3/ uL (0.8-4.8) [place] # (Auto) 0.7 10^3/uL 10^3/ uL (0.2-0.9) Eos # (Auto) 0.1 10^3/uL 10^3/ uL (0.0-0.8) Baso # (Auto) 0.0 10^3/uL 10^3/ uL (0.0-0.1) Nucleated RBC % (a uto) 0 % % Nucleated RBCs # 0.0 /100WBC /100W BC Sodium 141 mmol/L mmol/L (136-145) Potassium 3.8 mmol/L mmol/L (3.5-5.1) Chloride 104 mmol/L mmol/L (98-107) Carbon Dioxide 23 mmol/L mmol/L (22-29) Anion Gap 17.8 (5-19) BUN 15 mg/dL mg/dL (6-20) Creatinine 0.9 mg/dL mg/dL (0.7-1.2) GFR Calculation 87.3 mL/min L mL/ min (90-130) Glucose 99 mg/dL mg/dL (65-115) Calculated Osmolal ity 293 mOsm/kg mOsm/ kg (285-295) Calcium 9.0 mg/dL mg/dL (8.5-10.5) Total Bilirubin 0.3 mg/dL mg/dL (0.15-1.2) AST 22 U/L U/L (0-40) ALT 26 U/L U/L (0-41) Alkaline Phosphata se 102 IU/L IU/L (40-130) Total Protein 7.3 g/dL g/dL (6.6-8.7) Albumin 4.5 g/dL g/dL (3.5-5.2) Globulin 2.8 g/dL g/dL (1.3-4.6) EKG Data^: EKG 1: Attestation: I personally reviewed and interpreted this EKG as follows: EKG interpretation date: 07/11/21 EKG interpretation time: 01:24 Interpretation: afib hr [address] or t wave abnormalities qrs 101 qtc 358 Discharge Plan Discharge Patient Disposition: Home Clinical Impression: Atrial fibrillation Qualifiers: Atrial fibrillation type: unspecified Qualified Code(s): I48.91 - Unspecified atrial fibrillation Condition: Stable Prescriptions: No Action Xarelto 20 mg tablet 20 mg PO DAILY Qty: 90 RF: 3 Cardizem LA 120 mg tablet extended release 24 hr 120 mg PO DAILY@0700 Qty: 90 RF: 3 atorvastatin 20 mg tablet 20 mg PO DAILY@0900 Qty: 90 RF: 3 omega-3 fatty acids [Fish Oil Concentrate] 1,000 mg capsule 1,000 mg PO DAILY RF: 0 multivitamin Tablet 1 tab PO DAILY@0900 RF: 0 Discharge Orders: Discharge ED (Routine); Ordered 07/11/21 Ordered By: Sarah Hackett Referrals: Juan Hillman DO [Primary Care Provider] - 1-3 days Discharge Diet: Advance as tolerated Discharge Activity: Resume usual activity Patient Instructions: A-fib (Atrial Fibrillation) (ED) Coding Level of Care Code ED Jewel Bearing Grinder for Chg Fwd Exam Comprehensive
[2021-07-11] MEDS: sodium chloride 0.9% 1,000 ML 999 ML IV (01:41)
[2021-07-11 01:46] VITALS: PULSE 107; RESP 18; O2SAT 98
[2021-07-11 01:58] LABS: Basophils % 0.3 %; Eosinophils # 0.1 10^3/uL (0.0-0.8); Eosinophils % 0.8 %; Hematocrit 46.1 % (42.0-52.0); Hemoglobin 15.9 g/dL (11.7-16.6); Lymphocytes # 1.8 10^3/uL (0.8-4.8); Lymphocytes % 23.9 %; Mean Corpuscular HGB Conc 34.5 g/dL (30.0-36.0); Mean Corpuscular Hemoglobin 30.9 pg (28.0-34.0); Mean Corpuscular Volume 89.5 fl (80-94); Mean Platelet Volume 10.5 fL (7.4-10.4); Monocytes # 0.7 10^3/uL (0.2-0.9); Monocytes % 8.7 %; Neutrophils # 4.97 10^3/uL (1.8-7.7); Neutrophils % 66.2 %; Nucleated Red Blood Cells % 0 %; Platelet Count 212 10^3/cmm (130-400); Red Blood Count 5.15 10^6/uL (4.1-5.3); Red Cell Distribution Width 11.9 % (12.1-15.1); White Blood Count 7.5 10^3/uL (4.0-10.0)
[2021-07-11 02:16] LABS: Alanine Aminotransferase 26 U/L (0-41); Albumin Level 4.5 g/dL (3.5-5.2); Alkaline Phosphatase 102 IU/L (40-130); Anion Gap 17.8 (5-19); Aspartate Amino Transferase 22 U/L (0-40); Blood Urea Nitrogen 15 mg/dL (6-20); Carbon Dioxide 23 mmol/L (22-29); Chloride 104 mmol/L (98-107); Globulin 2.8 g/dL (1.3-4.6); Glomerular Filtration Rate 87.3 mL/min (90-130); Glucose 99 mg/dL (65-115); Osmolality Calculated 293 mOsm/kg (285-295); Potassium 3.8 mmol/L (3.5-5.1); Sodium 141 mmol/L (136-145); Total Bilirubin 0.3 mg/dL (0.15-1.2); Total Protein 7.3 g/dL (6.6-8.7)
[2021-07-11 02:51] VITALS: BP 127/65; PULSE 94; RESP 18
[2021-07-11] MEDS: sodium chloride 0.9% 500 ML 999 ML IV (02:52)
[2021-07-11] MEDS: LORazepam 1 mg Tablet PO (03:10)
[2021-07-11 03:19] VITALS: PULSE 88; O2SAT 98
== END 2021-07-11 03:22 | disposition home or self-care (01) ==
PROVIDERS: Emergency Provider Emergency Medicine; PCP Family Medicine
DX: I48.91 Unspecified atrial fibrillation (principal); E78.5 Hyperlipidemia, unspecified; Z86.73 Personal history of transient ischemic attack (TIA), and cerebral infarction without residual deficits
CPT/HCPCS: 80053; 85025; 93005; 96361; 96374; 96376; 99284; J3490; J7030; J7040

== ENCOUNTER 2022-03-25 06:35 | Observation (INO) | payer SELFPAY ==
[2022-03-25] VITALS (16 sets, daily range): BP systolic 118–150; BP diastolic 66–97; PULSE 60–158; RESP 13–20; TEMP 36.8–37.2; O2SAT 97–99
--- NOTE | 2022-03-25 06:44 | ECG_ITS ---
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 Measurements Intervals [place] Rate: 158 P: [place]: QRS: 75 QRSD: 141 T: 71 QT: 261 QTc: 424 Interpretive Statements ATRIAL FLUTTER/TACHYCARDIA WITH RAPID VENTRICULAR RESPONSE INTRAVENTRICULAR CONDUCTION DELAY [130+ ms QRS DURATION] Compared to ECG 07/11/2021 01:24:05 Intraventricular conduction delay now present Atrial fibrillation no longer present ST (T wave) deviation no longer present Electronically Signed On 03-25-2022 19:02:06 CDT by Asya Ferro M.D. [email or web address] [email or web address] Truckinguniversity hospitals [facility].[employer]/store/NU/[id number] myers
--- NOTE | 2022-03-25 06:49 | XRR_ITS ---
PROCEDURE INFORMATION: Exam: XR Chest Exam date and time: 03/25/2022 6:59 AM Age: 57 years old Clinical indication: Sternal or substernal pain; Additional info: Chest pain TECHNIQUE: Imaging protocol: Radiologic exam of the chest. Views: 1 view. COMPARISON: CR XR chest 1V portable [id number] 10/27/2020 12:13 AM FINDINGS: Lungs: Unremarkable. No consolidation. Pleural spaces: Unremarkable. No pleural effusion. No pneumothorax. Heart/Mediastinum: Unremarkable. No cardiomegaly. Bones/joints: Unremarkable. XR/XR chest 1V portable [id number] IMPRESSION: No acute findings.
--- NOTE | 2022-03-25 06:51 | PC.NURSE ---
ekg given to dr gutierrez, notified of presentation and s/s
--- NOTE | 2022-03-25 06:55 | ED_ITS ---
HPI - Chest Pain General: Chief Complaint: Chest Pain Stated Complaint: chest pain Time Seen by Provider: 03/25/22 06:49 Source: patient Mode of arrival: ambulatory History of Present Illness: 57-year-old male presents emergency room with complaint of sided chest pain this morning radiating to his neck and his right arm. On arrival here he is in A. fib flutter with a rapid rate in 160s he had not taken his morning medications. We are going to give him Cardizem he spontaneously converted. He is normally Cardizem and Xarelto. The nurse had gone to give any IV push Cardizem but he had converted so he was given the p.o. only. His symptoms have resolved at this point. He was given aspirin. He was nauseous and short of breath with this as well. He has no known history of coronary artery disease. He has not had any stress testing in the past. There is a normal echocardiogram from October 2020. MD complaint: chest pain Onset (ago): week(s) Timing of current episode: episodic Prior episodes: Yes Onset: during rest Pain location: left chest Pain radiation: back, neck, jaw/teeth and left shoulder Severity: mild Quality: tightness and aching Relieving factors: nothing Exacerbating factors: nothing Associated symptoms: Reports palpitations; Deny abdominal pain, diaphoresis, dyspnea, fever(s), leg edema, nausea, sense of impending doom, syncope or vomiting Treatment prior to arrival: none Review of Systems Const: Denies: fever(s), chills, fatigue, malaise or diaphoresis ENMT: Denies: throat pain, ear or mastoid pain, nasal discharge or nasal hanny estion Card: Reports: chest pain, palpitations and irregular heart rhythm; Denies: syncope Resp: Denies: dyspnea, productive cough, non-productive cough or wheezing GI: Denies: abdominal pain, nausea or vomiting : Denies: flank pain, difficulty urinating, dysuria, urinary frequency or urinary urgency Skin/Breast: Denies: rash or pruritus PFSH ED PFSH: Medical History Atrial fibrillation chronic, paroxysmal; xarelto initiated 10/2020 Carotid thrombosis, left Chronic prostatitis Hyperlipidemia Right thyroid nodule per thyroid US 01/2020 measures 7.4 x 3.5 x 4.6 CM Tick borne fever (~2019) Transient ischemic attack (~10/2020) Surgical History History of appendectomy Family History Father , at age 95 Arrhythmia Mother , at age 82 Heart disease Social History Smoking and tobacco status: never smoked Alcohol intake: never Lives independently: Yes Household members: spouse Marital status: Current occupational status: employed History of recent travel: No Physical Exam Const: GENERAL APPEARANCE: cooperative and comfortable ORIENTATION/CO NSCIOUSNESS: Yes awake, Yes oriented to person, Yes oriented to place and Yes oriented to time HENMT: COMMON NORMALS: normocephalic, atraumatic and hearing grossly normal bilaterally HEAD & SCALP: normocephalic and atraumatic Resp: COMMON NORMALS: normal respiratory effort, No retractions, No use of accessory muscles and clear to auscultation bilaterally AUSCULTATION: clear to auscultation bilaterally Cardio: RATE: tachycardic RHYTHM: abnormal rhythm irregularly irregular GI: COMMON NORMALS: Soft to palpation and No hepatosplenomegaly present AUSCULTATION: Yes normoactive bowel sounds PALPATION: Yes Soft to palpation, No Tenderness to palpation present (GI), No Guarding due to palpation present (GI) and Yes No hepatosplenomegaly present Extremity: COMMON NORMALS: normal to inspection, capillary refill normal, no clubbing, cyanosis or edema, no calf tenderness and no pedal edema Neuro: SENSORIUM/ORIENTATION: Yes oriented to person, Yes oriented to place and Yes oriented to time Skin: COMMON NORMALS: no rashes or lesions noted GENERAL SKIN EXAM: no rashes or lesions noted Course Vital Signs: Vital signs: Vital Signs Temperature 98.9 F 03/25/22 06:38 Pulse Rate 60 03/25/22 09:00 Respiratory Rate 14 03/25/22 09:00 Blood Pressure 121/66 03/25/22 09:00 Pulse Oximetry 98 03/25/22 09:00 Oxygen Delivery Me thod 03/25/22 09:00 MDM - Chest Pain Medical Decision Making Positive delta troponin to +44 symptoms are relieved at this time discussed with Dr. Gipson. Will place on observation, heparin has been started. Medical Records I reviewed the patient's medical records. Lab Data I reviewed the patient's lab results. : 03/25/22 08:55 03/25/22 06:55 Radiology Impressions Chest X-Ray 03/25/22 06:49 IMPRESSION: No acute findings. Laboratory Results WBC 6.3 10^3/uL (4.0-10.0) 03/25/22 06:55 RBC 5.39 10^6/uL (4.1-5.3) H 03/25/22 06:55 Hgb 16.8 g/dL (11.7-16.6) H 03/25/22 06:55 Hct 48.9 % (42.0-52.0) 03/25/22 06:55 MCV 90.7 fl (80-94) 03/25/22 06:55 MCH 31.2 pg (28.0-34.0) 03/25/22 06:55 MCHC 34.4 g/dL (30.0-36.0) 03/25/22 06:55 RDW 12.3 % (12.1-15.1) 03/25/22 06:55 Plt Count 178 10^3/cmm (130-400) 03/25/22 08:55 MPV 9.9 fL (7.4-10.4) 03/25/22 06:55 Neut % (Auto) 48.7 % 03/25/22 06:55 Lymph % (Auto) 40.4 % 03/25/22 06:55 [place] % (Auto) 8.9 % 03/25/22 06:55 Eos % (Auto) 1.3 % 03/25/22 06:55 Baso % (Auto) 0.5 % 03/25/22 06:55 Neut # (Auto) 3.05 10^3/uL (1.8-7.7) 03/25/22 06:55 Lymph # (Auto) 2.5 10^3/uL (0.8-4.8) 03/25/22 06:55 [place] # (Auto) 0.6 10^3/uL (0.2-0.9) 03/25/22 06:55 Eos # (Auto) 0.1 10^3/uL (0.0-0.8) 03/25/22 06:55 Baso # (Auto) 0.0 10^3/uL (0.0-0.1) 03/25/22 06:55 Nucleated RBC % (auto) 0 % 03/25/22 06:55 Nucleated RBCs # 0.0 /100WBC 03/25/22 06:55 Sodium 141 mmol/L (136-145) 03/25/22 06:55 Potassium 4.0 mmol/L (3.5-5.1) 03/25/22 06:55 Chloride 102 mmol/L (98-107) 03/25/22 06:55 Carbon Dioxide 26 mmol/L (22-29) 03/25/22 06:55 Anion Gap 17.0 (5-19) 03/25/22 06:55 BUN 17 mg/dL (6-20) 03/25/22 06:55 Creatinine 0.7 mg/dL (0.7-1.2) 03/25/22 06:55 GFR Calculation 116.2 mL/min (90-130) 03/25/22 06:55 Glucose 109 mg/dL (65-115) 03/25/22 06:55 Calculated Osmolality 294 mOsm/kg (285-295) 03/25/22 06:55 Calcium 9.9 mg/dL (8.5-10.5) 03/25/22 06:55 Total Bilirubin 0.4 mg/dL (0.15-1.2) 03/25/22 06:55 AST 26 U/L (0-40) 03/25/22 06:55 ALT 47 U/L (0-41) H 03/25/22 06:55 Alkaline Phosphatase 116 U/L (40-130) 03/25/22 06:55 Troponin T Baseline 11 ng/L (0-15) 03/25/22 06:55 Troponin T 120 Minute 55.30 ng/L (0-15) H 03/25/22 09:04 Delta Troponin T 44.30 ABS# (0-10) H* 03/25/22 09:04 Total Protein 7.2 g/dL (6.6-8.7) 03/25/22 06:55 Albumin 4.8 g/dL (3.5-5.2) 03/25/22 06:55 Globulin 2.4 g/dL (1.3-4.6) 03/25/22 06:55 Discharge Plan Discharge Patient Disposition: Placed in Observation Clinical Impression: Non-ST elevation SC (NSTEMI), Atrial fibrillation Condition: Stable Prescriptions: No Action multivitamin Tablet 1 tab PO QAM Fish Oil Concentrate 1,000 mg Capsule 1,000 mg PO QAM Cartia XT 120 mg capsule,extended release 24hr 120 mg PO QAM Xarelto 20 mg tablet 20 mg PO BEDTIME Referrals: Juan Hillman DO [Primary Care Provider] - Patient Instructions: Opioid Safety Coding Level of Care Code ED Photography Coordinator for Wilberg Fwd Exam Detailed
--- NOTE | 2022-03-25 06:55 | PC.NURSE ---
clear yellow urine collected at this time per protocol.
[2022-03-25 07:07] LABS: Basophils % 0.5 %; Eosinophils # 0.1 10^3/uL (0.0-0.8); Eosinophils % 1.3 %; Hematocrit 48.9 % (42.0-52.0); Hemoglobin 16.8 g/dL (11.7-16.6); Lymphocytes # 2.5 10^3/uL (0.8-4.8); Lymphocytes % 40.4 %; Mean Corpuscular HGB Conc 34.4 g/dL (30.0-36.0); Mean Corpuscular Hemoglobin 31.2 pg (28.0-34.0); Mean Corpuscular Volume 90.7 fl (80-94); Mean Platelet Volume 9.9 fL (7.4-10.4); Monocytes # 0.6 10^3/uL (0.2-0.9); Monocytes % 8.9 %; Neutrophils # 3.05 10^3/uL (1.8-7.7); Neutrophils % 48.7 %; Nucleated Red Blood Cells % 0 %; Platelet Count 200 10^3/cmm (130-400); Red Blood Count 5.39 10^6/uL (4.1-5.3); Red Cell Distribution Width 12.3 % (12.1-15.1); White Blood Count 6.3 10^3/uL (4.0-10.0)
[2022-03-25] MEDS: dilTIAZem ER (24HR) 120 mg Capsule PO (07:10)
[2022-03-25] MEDS: aspirin 81 mg Chew Tablet 324 MG PO (07:10)
[2022-03-25 07:23] LABS: Alanine Aminotransferase 47 U/L (0-41); Albumin Level 4.8 g/dL (3.5-5.2); Alkaline Phosphatase 116 U/L (40-130); Aspartate Amino Transferase 26 U/L (0-40); Blood Urea Nitrogen 17 mg/dL (6-20); Calcium 9.9 mg/dL (8.5-10.5); Carbon Dioxide 26 mmol/L (22-29); Chloride 102 mmol/L (98-107); Globulin 2.4 g/dL (1.3-4.6); Glomerular Filtration Rate 116.2 mL/min (90-130); Glucose 109 mg/dL (65-115); Osmolality Calculated 294 mOsm/kg (285-295); Sodium 141 mmol/L (136-145); Total Bilirubin 0.4 mg/dL (0.15-1.2); Total Protein 7.2 g/dL (6.6-8.7)
[2022-03-25 07:25] LABS: Troponin(5th) Baseline 11 ng/L (0-15)
--- NOTE | 2022-03-25 08:50 | PC.PHAR ---
pt states he takes care of his own medications-pt states he stop taking lipitor a month ago ext med history shows last filled 11/21/21 90d/s-
--- NOTE | 2022-03-25 09:02 | ECG_ITS ---
[facility] Test Date: 2022-03-25 Pat Name: Wong Alvarez Department: Room: Gender: Male Triage Registered Nurse: : 1965 Requested By: Yung Mccoy Order Number: [id number] Shanna MD: Asya Ferro M.D. Measurements Intervals [place] Rate: 65 P: 46 OR: 155 QRS: 74 QRSD: 109 T: 70 QT: 373 QTc: 389 Interpretive Statements SINUS RHYTHM Compared to ECG 07/11/2021 01:24:05 Atrial fibrillation no longer present ST (T wave) deviation no longer present Electronically Signed On 03-25-2022 19:06:30 CDT by Asya Ferro M.D. [email or web address] [facility]armajohn [facility].[employer]/store/OM/[id number]
[2022-03-25 10:31] LABS: Platelet Count 178 10^3/cmm (130-400)
[2022-03-25] MEDS: clopidogrel 300 mg Tablet 600 MG PO (10:42)
[2022-03-25] MEDS: heparin drip 25,000 UNIT/500 ML PREMIX 25.45 UNIT IV (11:11)
[2022-03-25] MEDS: heparin 5,000 unit/mL INJ 1 mL IV (11:12)
--- NOTE | 2022-03-25 12:49 | P.HP_ITS ---
Providers/Chief Complaint Primary Care Provider: Juan Hillman DO Chief Complaint: chest pain History of Present Illness Pleasant 57-year-old gentleman with atrial fibrillation, on Cartia, Xarelto, presented to ER due to right-sided chest pain radiating to his right arm, jaw, right side tongue, nauseated, short of breath. In ER found to be in atrial fibrillation with RVR heart rates up to high 150s. He states he has not missed any of his home medications. He states usually his heart rates are in the 60s. He noticed about a week ago that his heart rate was irregular and would be skipping beats, but also spontaneously convert back to normal. He states otherwise has been doing well, denies recent illness. He denies known history of coronary artery disease, has no history of stenting, never had a stress test. Reports history of coronary disease, although not in first-degree relatives. Blood pressure noted elevated in ER up to 150/91, but states at home usually runs closer to 120s/80s. In ER heart rate continuously converted to sinus rhythm in the 60s. He received his usual 120 mg diltiazem dose. He is currently pain-free. In ER troponin noted with positive delta from 11-55.3. EKG initially with atrial flutter/tachycardia. Interventricular conduction delay. After conversion sinus rhythm. Chest x-ray without acute findings. Review of Systems Const: Denies: fever(s), chills, body aches or malaise Eyes: Denies: change in vision, eye discomfort or eye redness ENMT: Denies: throat pain, oral sores or ear or mastoid pain Card: Reports: chest pain, palpitations and irregular heart rhythm; Denies: edema, pre-syncope or dyspnea on exertion Resp: Denies: dyspnea, productive cough, change in phlegm color or hemoptysis GI: Denies: abdominal pain, nausea, vomiting, diarrhea, constipation, hematochezia or melena : Denies: flank pain, difficulty urinating, urinary frequency or hematuria Musc: Denies: back pain, joint swelling or joint redness Skin/Breast: Denies: rash or new lesions Neuro: Denies: headache(s), numbness in extremities, weakness in extremities, dizziness, confusion or seizure-like activity Endo: Denies: polyuria or polydipsia Khai/Lymph: Denies: easy bleeding or tender lymph nodes All/Imm: Denies: urticaria or tongue swelling Medications/Allergies Home Medications Medication Instructions Recorded Confirmed Last Taken Type multivitamin 1 tab PO QAM 10/27/20 03/25/22 10/29/20 History diltiazem HCl 120 mg 120 mg PO QAM 03/25/22 03/25/22 Unknown History capsule,extended release 24 hr (Cartia XT) omega-3 fatty acids 1,000 mg 1,000 mg PO QAM 03/25/22 03/25/22 Unknown History capsule rivaroxaban 20 mg tablet (Xarelto) 20 mg PO BEDTIME 03/25/22 03/25/22 03/24/22 History Allergies Allergy/AdvReac Type Severity Reaction Status Date / Time sulfamethoxazole Allergy Severe algy-hives Verified 03/25/22 08:49 [From Bactrim] trimethoprim [From Bactrim] Allergy Severe algy-hives Verified 03/25/22 08:49 PFSH Acute PFSH: Medical History Atrial fibrillation chronic, paroxysmal; xarelto initiated 10/2020 Carotid thrombosis, left Chronic prostatitis Hyperlipidemia Right thyroid nodule per thyroid US 01/2020 measures 7.4 x 3.5 x 4.6 CM Tick borne fever (~2019) Transient ischemic attack (~10/2020) Surgical History History of appendectomy Family History Father , at age 95 Arrhythmia Mother , at age 82 Heart disease Social History Smoking and tobacco status: never smoked Alcohol intake: never Lives independently: Yes Household members: spouse Marital status: Current occupational status: employed History of recent travel: No Vitals/I&O/Wt Last Vital Signs Temp 98.9 F 03/25/22 06:38 Pulse 66 03/25/22 11:30 Resp 14 03/25/22 11:30 BP 150/91 03/25/22 11:30 Pulse Ox 98 03/25/22 11:30 O2 Del Method 03/25/22 11:30 Physical Exam Const: COMMON NORMALS: patient oriented x3 and alert GENERAL APPEARANCE: cooperative ORIENTATION/CONSCIOUSNESS: Yes awake HENMT: COMMON NORMALS: oropharynx normal Neck/C-Spine: COMMON NORMALS: no JVD Resp: COMMON NORMALS: normal respiratory effort and clear to auscultation denisse aterally AUSCULTATION: clear to auscultation bilaterally Cardio: COMMON NORMALS: no JVD, regular rhythm, S1 normal heart sound present, S2 normal heart sound present and No murmurs present (Cardio) RHYTHM: regular rhythm HEART SOUNDS: S1 normal heart sound present and S2 normal heart sound present GI: COMMON NORMALS: Normal to inspection, nondistended, normoactive bowel sounds present, Soft to palpation and non-tender PALPATION: Yes Soft to palpation Extremity: COMMON NORMALS: no joint enlargement and no pedal edema Neuro: COMMON NORMALS: patient oriented x3 and moves all extremities SENSORIUM/ORIENTATION: Yes alert Skin: COMMON NORMALS: no rashes or lesions noted GENERAL SKIN EXAM: no rashes or lesions noted Data : 03/25/22 08:55 03/25/22 06:55 A&P Assessment and plan (1) Non-ST elevation ME (NSTEMI): Atrial fibrillation with RVR associated with chest pain, nausea, shortness of breath, with positive delta troponin at 2 hours. Possible NSTEMI. Never had a stress test in the past. He was started on heparin drip. Started aspirin. Low-dose beta-sterling as he is already on Cardizem. Check lipid profile. Nitroglycerin as needed. Assess TTE. Monitor on telemetry. Discussed with him also additional assessment with stress testing tomorrow. Status: Acute (2) Paroxysmal atrial fibrillation with RVR: Received diltiazem ER 24-hour 120 mg, as above for possible NSTEMI started on low-dose metoprolol. Check magnesium, check TSH. Assess TTE. Discussed with him additional work-up for possible CAD as trigger as above. He was started on a heparin drip, continue. Prior to discharge position back to [facility]. Status: Acute Plan Blood pressure noted elevated in ER, although at home status is close to normal in 120s-80s. Monitor blood pressures. Attestations Medical Necessity Statement*: Place in observation for additional assessment management of possible NSTEMI, optimization of control of paroxysmal A. fib with RVR Coding Level of Care Code Acute Jalousie Installer for Chg Fwd Diagnoses Non-ST elevation ME (NSTEMI) I21.4 Paroxysmal atrial fibrillation with RVR I48.0
--- NOTE | 2022-03-25 12:53 | ECG_ITS ---
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 Measurements Intervals [place] Rate: 62 P: 32 CO: 164 QRS: 73 QRSD: 110 T: 75 QT: 386 QTc: 394 Interpretive Statements SINUS RHYTHM Compared to ECG 03/25/2022 09:02:31 No significant changes Electronically Signed On 03-25-2022 19:05:19 CDT by Asya Ferro M.D. [email or web address]. c. watkins memorial hospitalCelltrixselect medical specialty hospital [facility] [place].[employer]/store/OM/[id number]
--- NOTE | 2022-03-25 12:53 | USCV_ITS ---
Wong Alvarez Age: 57 Gender: M : 1965 Exam Date: 03/25/2022 13:07 Ordering Phys: Jeremiah Villa MD Technologist: Kirit Ricks Exam Location: [facility] [place] Indication: Elevated trop BP: 152 / 90 HR: 66 Rhythm: Sinus Technical Quality: Adequate MEASUREMENTS (Male / Female) Normal Values 2D ECHO LV Diastolic Diameter PLAX 3.7 cm 4.2 - 5.9 / 3.9 - 5.3 cm LV Systolic Diameter PLAX 2.6 cm IVS Diastolic Thickness 1.3 cm 0.6 - 1.0 / 0.6 - 0.9 cm IVS Systolic Thickness 1.4 cm LVPW Diastolic Thickness 1.1 cm 0.6 - 1.0 / 0.6 - 0.9 cm LVPW Systolic Thickness 1.6 cm LVOT Diameter 2.1 cm LV Ejection Fraction 2D Teich 58.2 % LV Ejection Fraction MOD 2C 68.0 % LV Ejection Fraction 2C AL 68.5 % LA Diameter 3.6 cm M-MODE Aortic Annulus Diameter 3.6 cm LA Ao Ratio MM 1.0 MV E Point Septal Separation 1.0 cm DOPPLER AV Peak Velocity 126.0 cm/s LVOT Peak Velocity 83.0 cm/s AV Area Cont Eq vti 2.1 cm squared AV Area Cont Eq pk 2.2 cm squared MV Area PHT 5.0 cm squared Mitral E to A Ratio 1.1 MV E' Velocity 33.0 cm/s Mitral E to MV E' Ratio 7.3 Mitral E to LV E' Lateral Ratio 7.1 Mitral E to LV E' Septal Ratio 7.5 TR Peak Velocity 173.7 cm/s TR Peak Gradient 12.1 mmHg Right Atrial Pressure 3.0 mmHg Pulmonary Artery Systolic Pressu 15.1 mmHg FINDINGS Left Ventricle Normal left ventricular size, systolic function and wall thickness, with no regional wall motion abnormalities. Left ventricular ejection fraction is estimated at 60 %. Normal diastolic function. Right Ventricle Normal right ventricular size and systolic function. RVSP could not be calculated due to incomplete tricuspid regurgitation velocity profile. Right Atrium Normal right atrial size. Left Atrium Normal left atrial size. Mitral Valve Structurally normal mitral valve. No mitral valve stenosis. No mitral valve regurgitation. Aortic Valve Structurally normal trileaflet aortic valve. No aortic valve stenosis. No aortic valve regurgitation. Tricuspid Valve Structurally normal tricuspid valve. No tricuspid valve regurgitation. Pulmonic Valve Pulmonic valve not well visualized. No pulmonary valve stenosis. No pulmonary valve regurgitation. Pericardium No pericardial effusion. Aorta Aorta not well visualized. IVC Inferior vena cava not visualized. CONCLUSIONS 1. Normal left ventricular size, systolic function and wall thickness, with no regional wall motion abnormalities. Left ventricular ejection fraction is estimated at 60 %. Normal diastolic function. 2. Normal right ventricular size and systolic function. 3. No significant valvular abnormality. 4. When compared to previous echocardiogram dated 10/27/2020, there may not have been any significant change. Asya Ferro MD (Electronically Signed) Final Date: 25 March 2022 14:20 S
[2022-03-25 13:44] LABS: Troponin 5 6HR 139.1 ng/L (0-15); Troponin 5 6HR Delta 128.1 ng/L (0-12)
[2022-03-25] MEDS: aspirin 325 mg Tablet PO (13:59)
[2022-03-25 16:27] LABS: Magnesium 1.7 mg/dL (1.7-2.3); Thyroid Stimulating Hormone 0.66 uIU/mL (0.27-4.20)
[2022-03-25 17:17] LABS: Partial Thromboplastin Time 66.1 SECONDS (23.9-36.7)
[2022-03-25] MEDS: metoprolol tartrate 25 mg Tablet 12.5 MG PO (20:19)
[2022-03-25 22:49] LABS: Partial Thromboplastin Time 66.4 SECONDS (23.9-36.7)
[2022-03-26] VITALS (12 sets, daily range): BP systolic 99–138; BP diastolic 68–88; PULSE 54–91; RESP 15–20; TEMP 36.5–37; O2SAT 96–98
--- NOTE | 2022-03-26 | ECG_ITS ---
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 Interpretive Statements NAME OF STUDY: LEXISCAN SESTAMIBI STRESS TEST INDICATION: [RECURRENT AFIB WITH RVR/CHEST PAIN/TROP ELEVATION, ] Procedure: At the baseline, the blood pressure was 130/88 mmHg with a heart rate of 70 bpm. The electrocardiogram showed normal sinus rhythm, normal axis with normal ST and T's. The Lexiscan was infused over a period of 20 seconds. A total of 0.4 mg of Lexiscan was infused. The stress phase was continued for a total of 5 minutes. Heart rate was at the end of stress phase was 89 bpm and a blood pressure of 133/87 mmHg. The EKG at the peak infusion revealed since normal sinus rhythm with no significant ST-T wave changes. Sestamibi was injected 20 seconds after the Lexiscan infusion. Blood pressure at the end of recovery phase was 131/88 mmHg with a heart rate of 89 bpm. Conclusion: 1. Normal EKG response to Lexiscan infusion 2. No Lexiscan induced chest pain or cardiac arrhythmia. 3. Normal blood pressure and heart rate response. 4. Sestamibi/sestamibi perfusion scan pending; see separate report. Electronically Signed On 04-14-2022 21:16:18 CDT by Paul New M.D. [email or web address]
[2022-03-26 05:07] LABS: Basophils % 0.4 %; Eosinophils # 0.1 10^3/uL (0.0-0.8); Eosinophils % 1.9 %; Hematocrit 45.1 % (42.0-52.0); Hemoglobin 15.1 g/dL (11.7-16.6); Lymphocytes # 1.9 10^3/uL (0.8-4.8); Lymphocytes % 36.4 %; Mean Corpuscular HGB Conc 33.5 g/dL (30.0-36.0); Mean Corpuscular Hemoglobin 30.2 pg (28.0-34.0); Mean Corpuscular Volume 90.2 fl (80-94); Mean Platelet Volume 10.5 fL (7.4-10.4); Monocytes # 0.5 10^3/uL (0.2-0.9); Monocytes % 8.7 %; Neutrophils # 2.78 10^3/uL (1.8-7.7); Neutrophils % 52.4 %; Nucleated Red Blood Cells % 0 %; Platelet Count 180 10^3/cmm (130-400); Red Cell Distribution Width 12.4 % (12.1-15.1); White Blood Count 5.3 10^3/uL (4.0-10.0)
[2022-03-26 05:19] LABS: Partial Thromboplastin Time 64.1 SECONDS (23.9-36.7)
[2022-03-26 05:29] LABS: Anion Gap 14.1 (5-19); Blood Urea Nitrogen 12 mg/dL (6-20); Carbon Dioxide 25 mmol/L (22-29); Chloride 104 mmol/L (98-107); Chol HDL Ratio 6.78 mg/dL (1.0-5.00); Cholesterol 312 mg/dL (0-200); Glomerular Filtration Rate 138.9 mL/min (90-130); Glucose 105 mg/dL (65-115); HDL Cholesterol 46 mg/dL (60-100); LDL Cholesterol Calculated 222 mg/dL (50-129); LDL HDL Ratio 4.83 RATIO (0.00-3.22); Osmolality Calculated 288 mOsm/kg (285-295); Potassium 4.1 mmol/L (3.5-5.1); Sodium 139 mmol/L (136-145); Triglycerides 221 mg/dL (0-150)
[2022-03-26] MEDS: heparin drip 25,000 UNIT/500 ML PREMIX 25 UNIT IV (06:03)
[2022-03-26] MEDS: aspirin 325 mg Tablet PO (08:50)
--- NOTE | 2022-03-26 11:14 | PC.NURSE ---
Pt left the floor at 1117 for lexiscan stress test. Heparin left infusing.
--- NOTE | 2022-03-26 11:30 | PC.NURSE ---
at the stress test dept
[2022-03-26] MEDS: metoprolol tartrate 25 mg Tablet 12.5 MG PO ×2 (13:47→20:00)
[2022-03-26] MEDS: dilTIAZem ER (12HR) 60 mg Capsule PO (15:01)
--- NOTE | 2022-03-26 15:49 | P.PN_ITS ---
Subjective Subjective: History and physical reviewed. Patient denies any chest discomfort now. Telemetry did not indicate any further runs of atrial fibrillation with rapid ventricular rate. He is slightly bradycardic at times, but not symptomatic with this. Medications: Reviewed: Yes Vitals/I&O/Wt Last Vital Signs Temp 98.3 F 03/26/22 11:38 Pulse 80 03/26/22 14:13 Resp 19 H 03/26/22 11:38 BP 131/88 03/26/22 13:20 Pulse Ox 98 03/26/22 11:38 O2 Del Method 03/26/22 11:38 03/26/22 03/26/22 03/26/22 06:59 14:59 22:59 Intake Total 317.917 / 1084.435 Output Total 750 / 750 950 / 950 Balance -432.083 / 334.435 -950 / -950 Weight last 48 hrs Weight 90.9 kg Physical Exam Narrative: General exam is a white male, no distress Neck is supple, no lymphadenopathy or thyromegaly Cardiovascular regular rate and rhythm, no murmur Lungs clear no wheezing or crackles Abdomen is soft, positive bowel sounds. No obvious organomegaly Extremities no cyanosis clubbing or edema Data : 03/26/22 04:37 03/26/22 04:37 A&P Assessment and plan (1) Non-ST elevation OK (NSTEMI): Atrial fibrillation with RVR associated with chest pain, nausea, shortness of breath. Significant troponin elevation. Nuclear stress test demonstrates small area of ischemia, circumflex artery. Continue to hold his Xarelto. Continue heparin. Continue aspirin, low-dose beta-sterling Continue diltiazem 120 mg daily Cardiology consultation Transthoracic echo complete, overall normal. TSH checked and normal. Add statin. Cholesterol markedly elevated. Status: Acute (2) Paroxysmal atrial fibrillation with RVR: Received diltiazem ER 24-hour 120 mg, as above for possible NSTEMI started on low-dose metoprolol. Continue diltiazem and metoprolol currently. Magnesium, TSH checked and normal See findings above. Status: Acute Plan Heparin will suffice for DVT prophylaxis Attestations Medical Necessity Statement*: Needs continued hospitalization for evaluation of abnormal nuclear stress testing. Coding Level of Care Code Acute Doctor Of Veterinary Medicine for Lilli Gomez Diagnoses Non-ST elevation OK (NSTEMI) I21.4 Paroxysmal atrial fibrillation with RVR I48.0
--- NOTE | 2022-03-26 15:52 | NMCV_ITS ---
NM victorino perf SPECT r/s* [id number] Wong Alvarez Age: 57 Gender: M : 1965 Exam Date: 03/26/2022 11:21 Ordering Phys: Jeremiah Villa MD Technologist: JESSICA Warren Exam Location: [facility] Indications: CHEST PAIN STRESS TEST [facility] IMAGE PROTOCOL Rest/Stress 1 Lexiscan Day Radiopharmaceutical Dose (mCi) Administration Site Administered by Rest: Tc-99m 10.6 IV JESSICA Warren Sestamibi Stress:Tc-99m 32.4 IV Kelly Bolanos, JESSICA Sestamibi Rest: 26-Mar-2022 60 Discovery 630 Stress: 26-Mar-2022 30 Discovery 630 0.4mg Lexiscan. Images obtained in supine and prone position. SPECT RESULTS Technical Quality: Excellent Raw Data Analysis: Normal Image Corrections: No attenuation or motion correction applied Summed Stress Score: 2 Summed Rest Score: 0 Summed Difference Score: 2 PERFUSION FINDINGS There is a small size reversible perfusion defect in inferolateral wall. This is consistent with small sized area of ischemia in left circumflex territory. FUNCTIONAL RESULTS (calculated via Gated SPECT) Stress Image LV EF (%): 63 Stress EDV (mL):113 TID: 0.88 Stress ESV (mL):42 FUNCTIONAL FINDINGS: There is normal left ventricular systolic function. IMPRESSIONS 1. Abnormal myocardial perfusion imaging with small sized area of ischemia in left circumflex artery territory. 2. LV systolic function is normal Paul New MD (Electronically Signed) Final Date: 26 March 2022 15:01 S
--- NOTE | 2022-03-26 17:03 | P.CONIM_ITS ---
Providers/Reason For Consult Consulting Physician/Specialty*: Paul New MD/ Cardiology Reason for Consult*: Chest pain/abnormal stress test Requesting Physician: Dr Ibanez Attending Physician: Shiva Ibanez MD Primary Care Provider: Jaun Hillman DO History of Present Illness History of Present Illness Wong Alvarez is a 57 year old male with past medical history of atrial fibrillation on Xarelto presented to hospital with chest pain. Chest pain was substernal and lasted about 1-2 hours. He was found to be in A. fib with RVR with heart rates in 150s. He is spontaneously converted back to normal sinus rhythm without any medications. His troponins went up significantly and peaked at 140 at 6 hours. Initial EKG showed A. fib with RVR with nonspecific ST-T wave changes. He underwent nuclear stress test which showed small area of ischemia in left circumflex artery territory. Review of Systems Const: Denies: fever(s), chills, body aches or malaise Eyes: Denies: change in vision, eye discomfort or eye redness ENMT: Denies: throat pain, oral sores or ear or mastoid pain Card: Reports: chest pain, palpitations and irregular heart rhythm; Denies: edema, pre-syncope or dyspnea on exertion Resp: Denies: dyspnea, productive cough, change in phlegm color or hemoptysis GI: Denies: abdominal pain, nausea, vomiting, diarrhea, constipation, hematochezia or melena : Denies: flank pain, difficulty urinating, urinary frequency or hematuria Musc: Denies: back pain, joint swelling or joint redness Skin/Breast: Denies: rash or new lesions Neuro: Denies: headache(s), numbness in extremities, weakness in extremities, dizziness, confusion or seizure-like activity Endo: Denies: polyuria or polydipsia Khai/Lymph: Denies: easy bleeding or tender lymph nodes All/Imm: Denies: urticaria or tongue swelling Medications/Allergies Home Medications Medication Instructions Recorded Confirmed Last Taken Type multivitamin 1 tab PO QAM 10/27/20 03/25/22 10/29/20 History diltiazem HCl 120 mg 120 mg PO QAM 03/25/22 03/25/22 Unknown History capsule,extended release 24 hr (Cartia XT) omega-3 fatty acids 1,000 mg 1,000 mg PO QAM 03/25/22 03/25/22 Unknown History capsule rivaroxaban 20 mg tablet (Xarelto) 20 mg PO BEDTIME 03/25/22 03/25/22 03/24/22 History Allergies Allergy/AdvReac Type Severity Reaction Status Date / Time sulfamethoxazole Allergy Severe algy-hives Verified 03/25/22 08:49 [From Bactrim] trimethoprim [From Bactrim] Allergy Severe algy-hives Verified 03/25/22 08:49 Current Medications Generic Name Dose Route Start Last Admin Trade Name Freq PRN Reason Stop Dose Admin Aspirin 325 mg 03/25/22 13:00 03/26/22 08:50 Aspirin 325 Mg Tablet PO 325 mg DAILY CARLY Administration Heparin Sodium (Porcine) 0 unit 03/25/22 10:24 03/25/22 11:12 Heparin 5,000 Unit/Ml Inj 1 Ml IV 4,500 unit PRN PRN Administration Heparin weight-base protocol Protocol Heparin Sodium/Sodium Chloride 25,000 unit in 500 mls @ 0 mls/hr 03/25/22 10:30 03/26/22 06:03 Heparin Drip IV 13.75 unit/kg/hr .Q0M CARLY 25 mls/hr Administration Protocol Per Protocol Metoprolol Tartrate 12.5 mg 03/25/22 21:00 03/26/22 13:47 Metoprolol Tartrate 25 Mg Tablet PO 12.5 mg BID@0900,2100 CARLY Administration PFSH Acute PFSH: Medical History Atrial fibrillation chronic, paroxysmal; xarelto initiated 10/2020 Carotid thrombosis, left Chronic prostatitis Hyperlipidemia Right thyroid nodule per thyroid US 01/2020 measures 7.4 x 3.5 x 4.6 CM Tick borne fever (~2019) Transient ischemic attack (~10/2020) Surgical History History of appendectomy Family History Father , at age 95 Arrhythmia Mother , at age 82 Heart disease Social History Smoking and tobacco status: never smoked Alcohol intake: never Lives independently: Yes Household members: spouse Marital status: Current occupational status: employed History of recent travel: No Vitals/I&O/Wt Last Vital Signs Temp 97.9 F 03/26/22 16:00 Pulse 65 03/26/22 16:00 Resp 20 H 03/26/22 16:00 BP 113/80 03/26/22 16:00 Pulse Ox 98 03/26/22 16:00 O2 Del Method 03/26/22 16:00 03/26/22 03/26/22 03/26/22 06:59 14:59 22:59 Intake Total 317.917 / 1084.435 Output Total 750 / 750 950 / 950 Balance -432.083 / 334.435 -950 / -950 Weight last 48 hrs Weight 200 lb 6.403 oz Physical Exam Narrative: GENERAL: Patient is alert, awake and oriented x3. [] NECK: No jugular vein distension. [] HEENT: No cyanosis. No icterus. No pallor. [] HEART: Regular S1 and S2. No murmur, rub or gallop. [] LUNGS: Clear to auscultate bilaterally. [] ABDOMEN: Soft, nontender and nondistended. Positive bowel sounds. No guarding, rebound or tenderness. [] CENTRAL NERVOUS SYSTEM: Grossly nonfocal. [] EXTREMITIES: Lower extremities with 1+ edema bilaterally. Pulses palpable in the lower extremities, both dorsalis pedis and posterior tibial. [] Data : 03/27/22 02:43 03/27/22 02:43 A&P Assessment and plan (1) Paroxysmal atrial fibrillation with RVR: Status: Acute (2) Non-ST elevation NC (NSTEMI): Status: Acute (3) Hyperlipidemia: Status: Chronic Qualifiers: Hyperlipidemia type: mixed hyperlipidemia Qualified Code(s): E78.2 - Mixed hyperlipidemia Plan Patient has presented with AVeena cannon with RVR that was brief and atypical chest pain symptoms associated with it. Stress test is showing small area of ischemia in left circumflex artery territory. Troponins did uptrend significantly with 6 hour troponin at 140. We will proceed with coronary angiogram with possible percutaneous coronary intervention. Risks and benefits of the procedure have been discussed with the patient. He understands the risks and benefits and wants to proceed with the procedure. N.p.o. past midnight. Continue heparin drip. Thank you for involving us in the care of this patient. We will continue to follow. Please call with questions. Consult Attestations Medical Necessity Statement: Care expected to cross 2 midnights. Coding Level of Care Code Acute Critical Systems Technician for Lilli Fwd Diagnoses Paroxysmal atrial fibrillation with RVR I48.0 Non-ST elevation NC (NSTEMI) I21.4 Hyperlipidemia E78.2 Hyperlipidemia type: mixed hyperlipidemia
[2022-03-26] MEDS: atorvastatin 40 mg Tablet PO (20:00)
[2022-03-27] VITALS (12 sets, daily range): BP systolic 99–119; BP diastolic 66–79; PULSE 58–68; RESP 13–22; TEMP 36.7–36.9; O2SAT 95–98
[2022-03-27] MEDS: heparin drip 25,000 UNIT/500 ML PREMIX 25 UNIT IV (01:50)
[2022-03-27 03:15] LABS: Basophils % 0.2 %; Eosinophils # 0.1 10^3/uL (0.0-0.8); Eosinophils % 1.6 %; Hematocrit 46.4 % (42.0-52.0); Hemoglobin 15.8 g/dL (11.7-16.6); Lymphocytes # 1.6 10^3/uL (0.8-4.8); Lymphocytes % 27.4 %; Mean Corpuscular HGB Conc 34.1 g/dL (30.0-36.0); Mean Corpuscular Hemoglobin 30.7 pg (28.0-34.0); Mean Corpuscular Volume 90.1 fl (80-94); Mean Platelet Volume 10.6 fL (7.4-10.4); Monocytes # 0.5 10^3/uL (0.2-0.9); Monocytes % 8.5 %; Neutrophils # 3.51 10^3/uL (1.8-7.7); Neutrophils % 62.1 %; Nucleated Red Blood Cells % 0 %; Platelet Count 184 10^3/cmm (130-400); Red Blood Count 5.15 10^6/uL (4.1-5.3); Red Cell Distribution Width 12.5 % (12.1-15.1); White Blood Count 5.7 10^3/uL (4.0-10.0)
[2022-03-27 03:35] LABS: Partial Thromboplastin Time 64.6 SECONDS (23.9-36.7)
[2022-03-27 03:44] LABS: Anion Gap 12.9 (5-19); Blood Urea Nitrogen 15 mg/dL (6-20); Calcium 9.2 mg/dL (8.5-10.5); Carbon Dioxide 26 mmol/L (22-29); Chloride 102 mmol/L (98-107); Glomerular Filtration Rate 116.2 mL/min (90-130); Glucose 103 mg/dL (65-115); Osmolality Calculated 285 mOsm/kg (285-295); Potassium 3.9 mmol/L (3.5-5.1); Sodium 137 mmol/L (136-145)
[2022-03-27] MEDS: dilTIAZem ER (24HR) 120 mg Capsule PO (06:08)
[2022-03-27] MEDS: diphenhydrAMINE 50 mg Capsule PO (06:09)
[2022-03-27] MEDS: sodium chloride 0.9% 1,000 ML 50 ML IV (06:09)
--- NOTE | 2022-03-27 08:00 | XACV_ITS ---
Exam Room: [facility] Ht: 188 cm Wt: 91 kg BSA: 2.18 m2 Gender: Male : 1965 Any Known Allergies: Other Exam Priority: Routine Procedure(s): Procedure Description: Diagnostic procedure Procedure Description: Left Heart Catheterization Procedure Description: Left ventriculography Procedure Description: Coronary Angiography Diagnostic Cath Status: Urgent Diagnostic Findings * INDICATION: 57 year old man who presented with A. fib with RVR that was brief and chest pain symptoms associated with it. Stress test is showing ischemia in left circumflex artery territory. Troponins did uptrend significantly with 6 hour troponin at 140. We will proceed with coronary angiogram with possible percutaneous coronary intervention. * LAD is a very large sized vessel which wraps around the apex. * M * id Left Anterior Descending: luminal irregularities 20-30% stenosis, CLAUDIA: 3 flow. * Proximal Right Coronary Artery: chronic total occlusion, CLAUDIA: 0 flow. * Mid Circumflex: chornic total occlusion, CLAUDIA: 0 flow. Distal vessel receives collaterals.. * Left Main has no disease. * Coronary angiography shows right dominance. Conclusions 1. 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 2. Patient has 3. patent 4. very large sized LAD 5. and a large sized OM branch which are free of significant disease. 6. Medical management at this time.. 7. Normal left ventricular systolic function. Ejection fraction of 50%. Recommendations * Aggressive risk factor modification. * Outpatient cardiology follow-up in 4 weeks. Interventional RX Recommendation: medical therapy and/or counseling Diagnostic RX Recommendation: medical therapy and/or counseling Anticoagulation: Heparin Ventriculography Ejection Fraction: 50.0 % Pressures Phase:Rest AO : 85 / 71 ( 79 ) @ 9:24:00 AM 90 / 74 ( 83 ) @ 9:27:00 AM 103 / 58 ( 77 ) @ 9:38:00 AM 104 / 48 ( 77 ) @ 9:38:00 AM LV : 131 / -2 / 8 @ 9:37:00 AM 115 / -31 / -5 @ 9:38:00 AM Valves Phase:DefaultPhase AV : 13.0 @ 8:45:58 AM AV Mean Gradient: 9.0 @ 8:45:58 AM Clinical Evaluation EBL: 5mL-10mL Procedural Details Procedure Consent Obtained. Current Diagnosis : Chest Pain. Pre-Procedure Time Out. Identified patient by full name and date of as verbalized by the patient/guarantor. Does the consent match the physician's order: Yes. Accurate & Complete Informed Consent: Yes. Inpatient/Outpatient History & Physical on Chart: Yes. If H&P is completed, is and addenduem needed: No; If yes, is the addendum complete: N/A. Visualize and Verify Site with Patient/Guarantor: N/A. Relevant Radiology Images available: Yes. Pre-op teaching completed and patient verbalized understanding. The risks, benefits, and alternatives of sedation and/or procedure were discussed by physician. The patient agrees to continue. Procedure started. [facility] Clinical Fraility Score: 3: Managing Well. Support Worker Indications: Suspected CAD. Chest Pain Symptom Assessment: Atypical Angina. Correct patient, site and procedure confirmed by cath team. Current diagnosis: Chest Pain. PERRLA. Strong, equal hand coffee blender bilaterally. Lungs clear x 5 lobes. IV Site on Arrival: 18 gauge in the right anticubital. IV Fluids: 0.9% NaCl at KVO. 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 Oxygen started at 2liters/min via nasal canula. right groin was prepped with chloroprep then draped in the usual sterile fashion. right radial was prepped with chloroprep then draped in the usual sterile fashion. Baseline sample Acquired. HR: 60 BPM. Physician arrived. Physician scrubbed in. Immediate Pre-Procedure Time Out. Correct Patient: Yes; Correct Procedure: Yes; Correct Site: Yes; Correct Patient Position: Yes; Correct Supplies: Yes; Dried Flammable Prep: Yes; Blood Products Available: N/A;. Lidocaine 1% infiltrated to the right radial. Arterial access obtained. A 5 iraqi TIG catheter in over wire. Multiple views taken of left coronary artery. Catheter redirected to the RCA. Multiple views taken of right coronary artery. Catheter removed over the standard wire. A 5 iraqi Angled Pig catheter in over wire. Catheter out. A 5 iraqi Angled Pig catheter in over wire. EDP Sample taken: LV 131/-3,8; HR: 72 BPM; SpO2: 98%. LV gram performed in CASAS @ 10 mL/second for a total of 30 mL. EDP Sample taken: LV 115/-32,-6; HR: 69 BPM; SpO2: 99%. Pullback taken: LV Off; AO 103/58(77); Mean: 9mmHg, Peak to Peak: 13mmHg, SEP: 53sec/min; HR: 70 BPM; SpO2: 99%. Catheter removed over the standard wire. Physician review of cine films. A TR Band was successful obtaining hemostatsis at the Right Radial artery insertion site. 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 Total IV fluids: 46 mL. Medication's Wasted: Lidocaine 1% = 1 mL. Medication's Wasted: Nitro = 49.6 mg. Medication's Wasted: Heparin = 1000 units. Post Procedure: Pulses reassessed and unchanged. PERRLA. Strong, equal hand coffee blender bilaterally. No VTE prophylaxis required. Complications: None. Estimated blood loss: 5mL-10mL. Responsiveness - Normal response to verbal stimuli; alert and oriented, PERRLA. Vital chart was stopped. Airway - Unaffected, no intervention required; spontaneous ventilation. Circulation: W/N/L, pulses unchanged. Nausea/Vomiting: No. Procedure completed. Patient transferred by wheelchair to [facility]. Access Site Site: Right Radial artery Sheath Size: 6 Fr Hemostasis Method: TR Band Hemostasis Success: Successful Procedure Medications Start: 8:13 AM Stop: 8:13 AM Medication: Versed Amount: 1 mg Route: I.V. Start: 8:14 AM Stop: 8:14 AM Medication: Fentanyl Amount: 50 mcg Route: I.V. Start: 8:20 AM Stop: 8:20 AM Medication: Nitrogylcerin Amount: 200 mcg Route: I.A. Start: 8:22 AM Stop: 8: AM Medication: Versed Amount: 1 mg Route: I.V. Start: 8:23 AM Stop: 8:23 AM Medication: Heparin Amount: 5000 units Route: I.V. Start: 8:31 AM Stop: 8:31 AM Medication: Nitrogylcerin Amount: 200 mcg Route: I.A. Start: 8:34 AM Stop: 8:34 AM Medication: Versed Amount: 1 mg Route: I.V. I, the attending physician, have reviewed and verified all procedure medications. Yes, all medications given per verbal order History/Risk Factors Hypertension: No Dyslipidemia: Yes Peripheral Arterial Disease (PAD): No Myocardial Infarction (CA): No Obesity: No Renal Disease: No Tobacco Use: Never Prior 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 PCI: No CABG: No Valve Surgery: No Report Signatures Finalized by Paul New MD on 03/30/2022 02:06 PM
--- NOTE | 2022-03-27 08:13 | PC.NURSE ---
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
--- NOTE | 2022-03-27 08:14 | W.PM.OPSUD ---
Surgery/Procedure H&P Update DATE OF PROCEDURE: March 27, 2022 DATE H&P PERFORMED: 03/26/22 H&P UPDATE INFORMATION: I have reviewed H&P completed within last 30 days, I have examined patient prior to procedure and No changes to prior documentation PREOP DIAGNOSIS: Chest pain/abnormal stress test/ Troponin elevation PRIMARY INDICATION FOR PROCEDURE: Chest pain/abnormal stress test/ Troponin elevation PLANNED PROCEDURE: Left heart cath with possible percutaneous coronary intervention PATIENT REASSESSED PRIOR TO SEDATION, WITH NO CHANGE NOTED: Yes PHYSICAL EXAM: alert, oriented x 3, clear to auscultation bilaterally and regular rate & rhythm AIRWAY EVAL/ANESTHESIA PLAN: ASA III, Local Anesthesia, Risks, benefits & alternatives of sedation and/or procedure discussed and Patient agrees to continue as planned ADDITIONAL INFORMATION: Moderate sedation
--- NOTE | 2022-03-27 08:56 | P.PN_ITS ---
Subjective Subjective: Patient underwent a coronary angiogram today. He has EGG SORTER of proximal RCA and distal vessel receiving collaterals from left system. LAD is a large wraparound vessel with mild 20 to 30% stenosis in the midsegment. Otherwise no significant stenosis. Left circumflex artery gives rise to a large sized OM branch which is free of disease. In the midsegment left circumflex artery is totally occluded with collateral blood supply from OM and LAD territory. LV systolic function is normal on LV gram Vitals/I&O/Wt Last Vital Signs Temp 98.4 F 03/27/22 07:07 Pulse 61 03/27/22 07:07 Resp 20 H 03/27/22 07:07 BP 118/77 03/27/22 07:07 Pulse Ox 96 03/27/22 07:07 O2 Del Method 03/27/22 07:07 03/26/22 03/27/22 03/27/22 22:59 06:59 14:59 Intake Total 840 / 1007.083 327.5 / 1334.583 Balance 840 / 57.083 327.5 / 384.583 Weight last 48 hrs Weight 200 lb 6.403 oz Physical Exam Narrative: GENERAL: Patient is alert, awake and oriented x3. [] NECK: No jugular vein distension. [] HEENT: No cyanosis. No icterus. No pallor. [] HEART: Regular S1 and S2. No murmur, rub or gallop. [] LUNGS: Clear to auscultate bilaterally. [] ABDOMEN: Soft, nontender and nondistended. Positive bowel sounds. No guarding, rebound or tenderness. [] CENTRAL NERVOUS SYSTEM: Grossly nonfocal. [] EXTREMITIES: Lower extremities with 1+ edema bilaterally. Pulses palpable in the lower extremities, both dorsalis pedis and posterior tibial. [] Data : 03/27/22 02:43 03/27/22 02:43 A&P Assessment and plan (1) Paroxysmal atrial fibrillation with RVR: Status: Acute (2) Non-ST elevation [place] (NSTEMI): Status: Acute (3) Hyperlipidemia: Status: Chronic Qualifiers: Hyperlipidemia type: mixed hyperlipidemia Qualified Code(s): E78.2 - Mixed hyperlipidemia Plan Patient underwent coronary angiogram with above-mentioned findings. We will medically treat CAD as EGG SORTER of proximal RCA and mid left circumflex artery with collateral blood supply. Large LAD and OM branches are patent. Preserved LV function on LV gram. Will recommend initiating high intensity statin therapy. Cholesterol level is very elevated. If does not respond to high intensity statin therapy, in future we will add Repatha as outpatient Can resume Xarelto from [facility]. Thank you for involving us in the care of this patient. Patient is stable to be discharged from cardiology standpoint after observation for radial access site. We will follow as outpatient. Please call with questions. Attestations Medical Necessity Statement*: Care expected to cross 2 midnights. 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
--- NOTE | 2022-03-27 09:00 | PC.NURSE ---
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 VS set q15m, Right radial TR band in place, no hematoma formation. Patient educated regarding restrictions. Will monitor q15
[2022-03-27] MEDS: metoprolol tartrate 25 mg Tablet 12.5 MG PO (09:55)
[2022-03-27] MEDS: aspirin 325 mg Tablet PO (09:55)
--- NOTE | 2022-03-27 10:48 | PM.DCS ---
Discharge Providers Date of Admission: 03/25/22 10:46 Date of Discharge: March 27, 2022 Attending Provider at Admission: Jeremiah Villa Attending Provider at Discharge: Shiva Ibanez MD Primary Care Provider: Juan Hillman DO Diagnoses at Discharge Discharge Diagnosis (1) Paroxysmal atrial fibrillation with RVR: Status: Acute (2) Non-ST elevation MN (NSTEMI): Status: Acute (3) Hyperlipidemia: Status: Chronic Qualifiers: Hyperlipidemia type: mixed hyperlipidemia Qualified Code(s): E78.2 - Mixed hyperlipidemia Reason for Visit Reason for Visit: chest pain Hospital Course Hospital Course Wong is a 57-year-old white male who presented to the hospital with chest discomfort. He was found to be in atrial fibrillation with rapid ventricular rate, converted in the emergency department prior to receiving diltiazem IV. Troponin trend was quite significant, going from normal up to 139. Cholesterol was checked and LDL 222. He was placed on aspirin, statin, anticoagulation with IV heparin, and a low-dose beta-sterling in addition to his diltiazem. Cardiology was consulted, who performed an angiogram on March 27 after patient had a positive stress test on March 26 demonstrating reversible ischemia. Echo was also performed demonstrating preserved EF. Angiogram per verbal report demonstrated chronic total occlusion of RCA and a portion of the circumflex with good collateral flow from LAD which did not have any flow-limiting lesions. It was recommended that he be treated medically. He will target for discharge on beta-sterling, statin, aspirin, Xarelto and have close follow-up with cardiology. TSH was checked during his hospital stay and normal. Physical Exam Narrative: General exam is no distress Neck is supple no lymphadenopathy thyromegaly Cardiovascular regular in rhythm without murmur Lungs clear no wheezing or crackles Abdomen is soft positive bowel sounds Extremities no sinus clubbing or edema, right radial wrist insertion site without significant hematoma Skin no rash Discharge Data Studies Completed and Pending Completed Studies During Hospitalization Category Date Time Status Cardiac Stress Test MIBI [Sestamibi Stress Test Request Exams 03/26/22 08:00 Draft ] Stat XR chest 1V portable [id number] Stat Exams 03/25/22 06:49 Completed NM victorino perf SPECT r/s* [id number] Routine Nuc Med 03/26/22 15:52 Completed CV. 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 Laboratory Results WBC 5.7 10^3/uL (4.0-10.0) 03/27/22 02:43 RBC 5.15 10^6/uL (4.1-5.3) 03/27/22 02:43 Hgb 15.8 g/dL (11.7-16.6) 03/27/22 02:43 Hct 46.4 % (42.0-52.0) 03/27/22 02:43 MCV 90.1 fl (80-94) 03/27/22 02:43 MCH 30.7 pg (28.0-34.0) 03/27/22 02:43 MCHC 34.1 g/dL (30.0-36.0) 03/27/22 02:43 RDW 12.5 % (12.1-15.1) 03/27/22 02:43 Plt Count 184 10^3/cmm (130-400) 03/27/22 02:43 MPV 10.6 fL (7.4-10.4) H 03/27/22 02:43 Neut % (Auto) 62.1 % 03/27/22 02:43 Lymph % (Auto) 27.4 % 03/27/22 02:43 [place] % (Auto) 8.5 % 03/27/22 02:43 Eos % (Auto) 1.6 % 03/27/22 02:43 Baso % (Auto) 0.2 % 03/27/22 02:43 Neut # (Auto) 3.51 10^3/uL (1.8-7.7) 03/27/22 02:43 Lymph # (Auto) 1.6 10^3/uL (0.8-4.8) 03/27/22 02:43 [place] # (Auto) 0.5 10^3/uL (0.2-0.9) 03/27/22 02:43 Eos # (Auto) 0.1 10^3/uL (0.0-0.8) 03/27/22 02:43 Baso # (Auto) 0.0 10^3/uL (0.0-0.1) 03/27/22 02:43 Nucleated RBC % (auto) 0 % 03/27/22 02:43 Nucleated RBCs # 0.0 /100WBC 03/27/22 02:43 APTT 64.6 SECONDS (23.9-36.7) H 03/27/22 02:43 Sodium 137 mmol/L (136-145) 03/27/22 02:43 Potassium 3.9 mmol/L (3.5-5.1) 03/27/22 02:43 Chloride 102 mmol/L (98-107) 03/27/22 02:43 Carbon Dioxide 26 mmol/L (22-29) 03/27/22 02:43 Anion Gap 12.9 (5-19) 03/27/22 02:43 BUN 15 mg/dL (6-20) 03/27/22 02:43 Creatinine 0.7 mg/dL (0.7-1.2) 03/27/22 02:43 GFR Calculation 116.2 mL/min (90-130) 03/27/22 02:43 Glucose 103 mg/dL (65-115) 03/27/22 02:43 Calculated Osmolality 285 mOsm/kg (285-295) 03/27/22 02:43 Calcium 9.2 mg/dL (8.5-10.5) 03/27/22 02:43 Magnesium 1.7 mg/dL (1.7-2.3) 03/25/22 12:57 Total Bilirubin 0.4 mg/dL (0.15-1.2) 03/25/22 06:55 AST 26 U/L (0-40) 03/25/22 06:55 ALT 47 U/L (0-41) H 03/25/22 06:55 Alkaline Phosphatase 116 U/L (40-130) 03/25/22 06:55 Troponin T Baseline 11 ng/L (0-15) 03/25/22 06:55 Troponin T 120 Minute 55.30 ng/L (0-15) H 03/25/22 09:04 Delta Troponin T 44.30 ABS# (0-10) H* 03/25/22 09:04 Troponin T Hi Sens 6Hr 139.1 ng/L (0-15) H 03/25/22 12:57 Troponin T Hi Sens 6Hr Delta 128.1 ng/L (0-12) H* 03/25/22 12:57 Total Protein 7.2 g/dL (6.6-8.7) 03/25/22 06:55 Albumin 4.8 g/dL (3.5-5.2) 03/25/22 06:55 Globulin 2.4 g/dL (1.3-4.6) 03/25/22 06:55 Triglycerides 221 mg/dL (0-150) H 03/26/22 04:37 Cholesterol 312 mg/dL (0-200) H 03/26/22 04:37 LDL Cholesterol, Calc 222 mg/dL (50-129) H 03/26/22 04:37 HDL Cholesterol 46 mg/dL (60-100) L 03/26/22 04:37 LDL/HDL Ratio 4.83 RATIO (0.00-3.22) H 03/26/22 04:37 Cholesterol/HDL Ratio 6.78 mg/dL (1.0-5.00) H 03/26/22 04:37 TSH 0.66 uIU/mL (0.27-4.20) 03/25/22 12:57 Vitals Last Vital Signs Temp 98.4 F 03/27/22 07:07 Pulse 60 03/27/22 10:30 Resp 16 03/27/22 10:30 BP 111/72 03/27/22 10:30 Pulse Ox 98 03/27/22 10:30 O2 Del Method 03/27/22 07:07 Discharge Plan Discharge Patient Disposition: Home Condition: Stable Prescriptions: New metoprolol tartrate 25 mg Tablet 12.5 mg PO BID@0900,2100 Qty: 60 0RF Lipitor 80 mg tablet 80 mg PO DAILY Qty: 30 0RF Adult Aspirin Regimen 81 mg tablet,delayed release (DR/EC) 81 mg PO DAILY Qty: 30 0RF Continued multivitamin Tablet 1 tab PO QAM omega-3 fatty acids 1,000 mg Capsule 1,000 mg PO QAM Cartia XT 120 mg capsule,extended release 24hr 120 mg PO QAM Xarelto 20 mg tablet 20 mg PO BEDTIME Discharge Orders: Discharge Order (Routine); Ordered 03/27/22 Ordered By: Shiva Ibanez Referrals: Juan Hillman DO [Primary Care Provider] - 04/02/22 11:00 am (Appointment will be with Neetu Hernandez FNP [Nurse Practitioner] - 04/03/22 10:15 am Discharge Diet: Cardiac Discharge Activity: Increase activity as tolerated Patient Instructions: Metoprolol (By mouth), Aspirin (By mouth), Atorvastatin (By mouth), Heart Attack (GEN), A-fib (Atrial Fibrillation) (GEN), Opioid Safety, Post Angiogram Home Care Instructions Activity Restrictions/Additional Instructions: Take all medicine as prescribed Follow-up primary care provider 3 to 5 days For any significant bleeding notify your primary care provider immediately Follow-up with Neeut Khoury nurse practitioner 1 week, Dr. Rocha thereafter in 1 month. Discharge Attestations Time Spent in Discharge Care*: greater than 30 min Status at Discharge: Cognitive status at discharge: cognitively intact, Behavioral status at discharge: cooperative, Quality Metrics Clinical Quality Measures [ Acute Myocardial Infaction { Clinical Trial Participant: No; Contraindication to aspirin: None; Aspirin prescribed; Contraindication to statin: None; Statin prescribed; Contraindication to PCI: Intervention not indicated;}] Coding Level of Care Code Acute Chg FW DC note Diagnoses Paroxysmal atrial fibrillation with RVR I48.0 Non-ST elevation MN (NSTEMI) I21.4 Hyperlipidemia E78.2 Hyperlipidemia type: mixed hyperlipidemia
--- NOTE | 2022-03-27 13:30 | PC.NURSE ---
TR band removed and dressing in place. Site looks clean, no oozing, no hematoma present. Discharge instructions provided, IV removed. Patient and spouse have no questions. Nurse escorted patient to exit. VS stable upon departure.
== END 2022-03-27 13:30 | disposition home or self-care (01) ==
LOC: ER 15:17 → MEDSURG 15:54
PROVIDERS: Internal Medicine; Admitting Provider Internal Medicine; Emergency Provider Family Medicine; PCP Family Medicine; Visit Provider Internal Medicine
DX: I21.4 Non-ST elevation (NSTEMI) myocardial infarction (principal); I48.0 Paroxysmal atrial fibrillation; I25.10 Atherosclerotic heart disease of native coronary artery without angina pectoris; E78.2 Mixed hyperlipidemia; Z79.82 Long term (current) use of aspirin; Z79.01 Long term (current) use of anticoagulants; Z86.73 Personal history of transient ischemic attack (TIA), and cerebral infarction without residual deficits; Z88.2 Allergy status to sulfonamides
CPT/HCPCS: 36415; 71045; 78452; 80048; 80053; 80061; 83735; 84443; 84484; 85025; 85049; 85730; 93005; 93017; 93306; 93458; 94760; 96360; 96365; 96366; 99152; 99153; 99285; A9500; C1769; C1887; C1894; G0378; J1644; J2250; J3010; J3490; J7030; Q0163; Q9967

== ENCOUNTER → 2022-04-04 08:02 | Outpatient (BNVA) | payer SELFPAY | PROVIDERS: PCP Family Medicine; Visit Provider Nurse Practitioner Family | DX: I48.91 Unspecified atrial fibrillation (principal); E78.5 Hyperlipidemia, unspecified; Z79.899 Other long term (current) drug therapy | CPT/HCPCS: 80048 ==

== ENCOUNTER → 2023-03-05 14:17 | Outpatient (BNVA) | payer SELFPAY | PROVIDERS: PCP Family Medicine; Visit Provider Nurse Practitioner Family | DX: E78.2 Mixed hyperlipidemia (principal) | CPT/HCPCS: 80053; 80061; 84443 ==

== ENCOUNTER 2024-04-18 04:41 | Emergency (ER) | payer OTHER, SELFPAY ==
[2024-04-18 04:41] VITALS: BP 122/79; PULSE 115; RESP 18; TEMP 36.9; O2SAT 98; BMI 26.1
--- NOTE | 2024-04-18 04:58 | ECG_ITS ---
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 Measurements Intervals [place] Rate: 127 P: 0 GA: 0 QRS: 62 QRSD: 100 T: 62 QT: 297 QTc: 433 Interpretive Statements ATRIAL FIBRILLATION WITH RAPID VENTRICULAR RESPONSE ABNORMAL RHYTHM ECG Compared to ECG 03/25/2022 12:53:56 Sinus rhythm no longer present Electronically Signed On 04-19-2024 18:57:27 CDT by Paul New M.D. [id number]
--- NOTE | 2024-04-18 05:00 | XRR_ITS ---
PROCEDURE INFORMATION: Exam: XR Chest Exam date and time: 04/18/2024 5:26 AM Age: 59 years old Clinical indication: Pain; Chest pressure; Additional info: Cp TECHNIQUE: Imaging protocol: Radiologic exam of the chest. Views: 1 view. COMPARISON: CR XR chest 1V portable [id number] 03/25/2022 6:59 AM FINDINGS: Lungs: Unremarkable. No consolidation. Pleural spaces: Unremarkable. No pleural effusion. No pneumothorax. Heart/Mediastinum: Unremarkable. No cardiomegaly. Bones/joints: Unremarkable. XR/XR chest 1V portable [id number] IMPRESSION: No acute findings.
[2024-04-18 05:08] LABS: Basophils % 0.4 %; Eosinophils # 0.1 10^3/uL (0.0-0.8); Eosinophils % 1.3 %; Hematocrit 46.1 % (37-53); Lymphocytes # 1.4 10^3/uL (0.8-4.8); Lymphocytes % 30.3 %; Mean Corpuscular HGB Conc 34.9 g/dL (30-55); Mean Corpuscular Hemoglobin 30.8 pg (27-33); Mean Corpuscular Volume 88.3 fl (82-101); Mean Platelet Volume 10.3 fL (7.4-10.4); Monocytes # 0.5 10^3/uL (0.2-0.9); Monocytes % 9.9 %; Neutrophils # 2.76 10^3/uL (1.8-7.7); Neutrophils % 58.1 %; Nucleated Red Blood Cells % 0 %; Platelet Count 164 10^3/cmm (157-399); Red Blood Count 5.22 10^6/uL (3.85-5.65); Red Cell Distribution Width 12.4 % (12.1-15.1); White Blood Count 4.75 10^3/uL (3.29-11.43)
[2024-04-18] MEDS: dilTIAZem 5 mg/mL SDV 5 mL 15 MG IVP (05:12)
[2024-04-18 05:17] VITALS: BP 120/79; PULSE 102; RESP 17; O2SAT 98
--- NOTE | 2024-04-18 05:17 | ED_ITS ---
HPI - Chest Pain 2 General: Chief Complaint: Chest Pain Stated Complaint: CP Time Seen by Provider: 04/18/24 04:58 History of Present Illness: 59-year-old male patient with a history of atrial fibrillation. He presents with chest discomfort and palpitations that woke him up around 3 AM this morning. He felt uneasy and somewhat short of breath. He walked around the house without much improvement. He called an ambulance, and they noted his heart rate was as high as 160. His pain is gone currently. His heart rate is still elevated. He was not given any medications in the ambulance. Related Data Home Medications Medication Instructions Recorded Confirmed multivitamin 1 tab PO QAM 10/27/20 03/15/24 omega-3 fatty acids 1,000 mg 1,000 mg PO QAM 03/25/22 03/15/24 capsule Previous Rx's Medication Instructions Recorded aspirin 81 mg tablet,delayed 81 mg PO DAILY #30 tabs 03/27/22 release (Adult Aspirin Regimen) diltiazem HCl 120 mg See Rx Instructions .Route 02/10/24 capsule,extended release 24 hr .COMPLEX #90 caps atorvastatin 80 mg tablet See Rx Instructions .Route 03/15/24 .COMPLEX #90 tabs metoprolol tartrate 25 mg tablet See Rx Instructions .Route 03/15/24 .COMPLEX #90 tabs rivaroxaban 20 mg tablet (Xarelto) See Rx Instructions .Route 03/31/24 .COMPLEX #90 tabs Allergies Allergy/AdvReac Type Severity Reaction Status Date / Time sulfamethoxazole Allergy Severe algy-hives Verified 03/15/24 14:06 [From Bactrim] trimethoprim [From Bactrim] Allergy Severe algy-hives Verified 03/15/24 14:06 [facility] ED 2 PFS: Medical History Atherosclerosis of coronary artery Non-ST elevation [place] (NSTEMI) Tick borne fever (~2019) Hyperlipidemia Carotid thrombosis, left Transient ischemic attack (~10/2020) Atrial fibrillation chronic, paroxysmal; xarelto initiated 10/2020 Chronic prostatitis Right thyroid nodule per thyroid US 01/2020 measures 7.4 x 3.5 x 4.6 CM Surgical History History of appendectomy Family History Father , at age 95 Arrhythmia Mother , at age 82 Heart disease Social History Smoking and tobacco/nicotine status: never used tobacco/nicotine Alcohol intake: never Substance/Drug Use: never Lives independently: Yes Household members: spouse Marital status: Current occupational status: employed Physical Exam 2 Const: COMMON NORMALS: no acute distress GENERAL APPEARANCE: cooperative; not ill appearing and not frail appearing HENMT: COMMON NORMALS: normocephalic, atraumatic and Normal external nose present HEAD & SCALP: normocephalic and atraumatic FACE & SINUS: normal facial exam and face symmetric NOSE: Normal external nose present Eye: COMMON NORMALS: Equal, round and reactive pupils present and EOMs intact bilaterally PUPIL: Yes Equal, round and reactive pupils present Neck/C-Spine: GENERAL: Yes trachea midline Chest: CHEST: Yes Symmetrical chest wall rise Resp: COMMON NORMALS: normal respiratory effort, No retractions, No use of accessory muscles and clear to auscultation bilaterally AUSCULTATION: clear to auscultation bilaterally Cardio: RATE: tachycardic RHYTHM: abnormal rhythm irregularly irregular GI: COMMON NORMALS: Normal to inspection, nondistended, normoactive bowel sounds present Extremity: COMMON NORMALS: no pedal edema Neuro: YOVANNY COMA SCALE: document GCS findings Casa coma scale eye opening: Spontaneous Yovanny coma scale verbal response: Orientated Casa coma scale motor response: Obey commands Casa coma scale total score: 15 S ENSORY EXAM: Yes extremities (intact) Psych: COMMON NORMALS: speech normal SPEECH: Yes normal speech Skin: COMMON NORMALS: no rashes or lesions noted GENERAL SKIN EXAM: no rashes or lesions noted Course 2 Vital Signs: Vital signs: Vital Signs Temperature 98.4 F 04/18/24 04:41 Pulse Rate 61 04/18/24 08:05 Respiratory Rate 14 04/18/24 07:40 Blood Pressure 114/75 04/18/24 08:05 Pulse Oximetry 93 04/18/24 08:05 Oxygen Delivery Me thod Room Air 04/18/24 07:40 MDM - Chest Pain Medical Decision Making EKG shows atrial fibrillation with a heart rate of 120, no significant ST elevation or depression. [place] is normal. Intervals are otherwise normal. The patient's chest discomfort resolved prior to arrival. Second EKG still without ST. changes. Chest X-ray is negative. Other laboratory is not remarkable, except for his troponin, which has a 2 hour delta of five. Given his history of coronary disease, it was suggested to the patient that we observe him, and trend his troponins, particularly as he is now on a diltiazem drip to control his rate. He is only at 5 currently with controlled rate. The patient really wants to go home. He is due for his oral diltiazem dose now. This is given to him in the ER. Again it was stressed, that he should be observed in the hospital. He elected to go home. 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 He knows to return for any return of his chest discomfort. He understands and accepts the risks of going home, and therefore was not asked to sign an AMA form. Lab Data 04/18/24 05:00 04/18/24 05:00 Radiology Impressions Chest X-Ray 04/18/24 05:00 IMPRESSION: No acute findings. Laboratory Results WBC 4.75 10^3/uL (3.29-11.43) 04/18/24 05:00 RBC 5.22 10^6/uL (3.85-5.65) 04/18/24 05:00 Hgb 16.10 g/dL (11.27-16.99) 04/18/24 05:00 Hct 46.1 % (37-53) 04/18/24 05:00 MCV 88.3 fl (82-101) 04/18/24 05:00 MCH 30.8 pg (27-33) 04/18/24 05:00 MCHC 34.9 g/dL (30-55) 04/18/24 05:00 RDW 12.4 % (12.1-15.1) 04/18/24 05:00 Plt Count 164 10^3/cmm (157-399) 04/18/24 05:00 MPV 10.3 fL (7.4-10.4) 04/18/24 05:00 Neut % (Auto) 58.1 % 04/18/24 05:00 Lymph % (Auto) 30.3 % 04/18/24 05:00 [place] % (Auto) 9.9 % 04/18/24 05:00 Eos % (Auto) 1.3 % 04/18/24 05:00 Baso % (Auto) 0.4 % 04/18/24 05:00 Neut # (Auto) 2.76 10^3/uL (1.8-7.7) 04/18/24 05:00 Lymph # (Auto) 1.4 10^3/uL (0.8-4.8) 04/18/24 05:00 [place] # (Auto) 0.5 10^3/uL (0.2-0.9) 04/18/24 05:00 Eos # (Auto) 0.1 10^3/uL (0.0-0.8) 04/18/24 05:00 Baso # (Auto) 0.0 10^3/uL (0.0-0.1) 04/18/24 05:00 Nucleated RBC % (auto) 0 % 04/18/24 05:00 Nucleated RBCs # 0.0 /100WBC 04/18/24 05:00 PT 13.70 SECONDS (12.1-14.9) 04/18/24 05:00 INR 1.01 (0.8-1.2) 04/18/24 05:00 APTT 30.9 SECONDS (23.9-36.7) 04/18/24 05:00 Sodium 140 mmol/L (136-145) 04/18/24 05:00 Potassium 3.9 mmol/L (3.5-5.1) 04/18/24 05:00 Chloride 105 mmol/L (98-107) 04/18/24 05:00 Carbon Dioxide 25 mmol/L (22-29) 04/18/24 05:00 Anion Gap 13.9 (5-19) 04/18/24 05:00 BUN 18 mg/dL (6-20) 04/18/24 05:00 Creatinine 0.6 mg/dL (0.7-1.2) L 04/18/24 05:00 GFR Calculation 137.9 mL/min (90-130) H 04/18/24 05:00 Glucose 133 mg/dL (65-115) H 04/18/24 05:00 Calculated Osmolality 294 mOsm/kg (285-295) 04/18/24 05:00 Calcium 9.0 mg/dL (8.5-10.5) 04/18/24 05:00 Total Bilirubin 0.5 mg/dL (0.15-1.2) 04/18/24 05:00 AST 33 U/L (0-40) 04/18/24 05:00 ALT 41 U/L (0-41) 04/18/24 05:00 Alkaline Phosphatase 121 U/L (40-130) 04/18/24 05:00 Troponin T Baseline 13 ng/L (0-15) 04/18/24 05:00 Troponin T 120 Minute 18.11 ng/L (0-15) H 04/18/24 07:06 Delta Troponin T 5.11 ABS# (0-10) 04/18/24 07:06 NT-Pro-B Natriuret Pep 66 pg/mL (0-125) 04/18/24 05:00 Total Protein 6.8 g/dL (6.6-8.7) 04/18/24 05:00 Albumin 4.4 g/dL (3.5-5.2) 04/18/24 05:00 Globulin 2.4 g/dL (1.3-4.6) 04/18/24 05:00 All radiology interpretation(s) finalized by discharge Discharge Plan Discharge Patient Disposition: Home Clinical Impression: Chest pain, Atrial fibrillation Condition: Stable Prescriptions: No Action atorvastatin 80 mg tablet See Rx Instructions .ROUTE .COMPLEX Qty: 90 3RF Dose Instruction: Take 1 tablet by mouth once daily Rx Instructions: Take 1 tablet by mouth once daily metoprolol tartrate 25 mg tablet See Rx Instructions .ROUTE .COMPLEX Qty: 90 3RF Dose Instruction: TAKE 1/2 (ONE-HALF) TABLET BY MOUTH AT 9AM AND TAKE 1/2 TAB AT 9PM Rx Instructions: TAKE 1/2 (ONE-HALF) TABLET BY MOUTH AT 9AM AND TAKE 1/2 TAB AT 9PM diltiazem HCl 120 mg capsule,extended release 24hr See Rx Instructions .ROUTE .COMPLEX Qty: 90 3RF Dose Instruction: Take 1 capsule by mouth in the morning Rx Instructions: Take 1 capsule by mouth in the morning Xarelto 20 mg tablet See Rx Instructions .ROUTE .COMPLEX Qty: 90 1RF Dose Instruction: TAKE 1 TABLET BY MOUTH EVERY DAY with evening meal Rx Instructions: TAKE 1 TABLET BY MOUTH EVERY DAY with evening meal multivitamin Tablet 1 tab PO QAM omega-3 fatty acids 1,000 mg Capsule 1,000 mg PO QAM Adult Aspirin Regimen 81 mg tablet,delayed release (DR/EC) 81 mg PO DAILY Qty: 30 0RF Discharge Orders: Discharge ED (Routine); Ordered 04/18/24 Ordered By: Jaciel Alvarado Referrals: Paul New M.D [Physician] - 4-7 days Collette Tony NP [Primary Care Provider] - Patient Instructions: A-fib (Atrial Fibrillation) (ED), Chest Pain (ED), Opioid Safety, Pain Management Activity Restrictions/Additional Instructions: Return for any return of your chest discomfort, shortness of breath, palpitations or rapid heart rate, other concerning symptoms. See your doctor as scheduled this coming week. Coding Level of Care Code ED Editor Department for Lilli Gomez
[2024-04-18 05:33] LABS: INR 1.01 (0.8-1.2)
[2024-04-18] MEDS: dilTIAZem 100 MG in sodium chloride 0.9% (add-van) 100 ML IV (05:33)
[2024-04-18 05:34] LABS: Partial Thromboplastin Time 30.9 SECONDS (23.9-36.7)
[2024-04-18 05:35] VITALS: BP 105/79; PULSE 105; RESP 15; O2SAT 95
[2024-04-18 05:42] LABS: Troponin(5th) Baseline 13 ng/L (0-15)
[2024-04-18 05:55] LABS: Alanine Aminotransferase 41 U/L (0-41); Albumin Level 4.4 g/dL (3.5-5.2); Alkaline Phosphatase 121 U/L (40-130); Anion Gap 13.9 (5-19); Aspartate Amino Transferase 33 U/L (0-40); Blood Urea Nitrogen 18 mg/dL (6-20); Carbon Dioxide 25 mmol/L (22-29); Chloride 105 mmol/L (98-107); Globulin 2.4 g/dL (1.3-4.6); Glomerular Filtration Rate 137.9 mL/min (90-130); Glucose 133 mg/dL (65-115); NT Pro B Type Natriuretic Pept 66 pg/mL (0-125); Osmolality Calculated 294 mOsm/kg (285-295); Potassium 3.9 mmol/L (3.5-5.1); Sodium 140 mmol/L (136-145); Total Bilirubin 0.5 mg/dL (0.15-1.2); Total Protein 6.8 g/dL (6.6-8.7)
[2024-04-18 05:56] LABS: Creatinine Clr Calc Pharmacy 157.2458
[2024-04-18 06:47] VITALS: BP 127/62; PULSE 87; RESP 14; O2SAT 97
[2024-04-18 07:30] LABS: Troponin 5 2HR 18.11 ng/L (0-15); Troponin 5 2HR Delta 5.11 ABS# (0-10)
--- NOTE | 2024-04-18 07:31 | ECG_ITS ---
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 Measurements Intervals [place] Rate: 80 P: 0 AR: 0 QRS: 59 QRSD: 105 T: 62 QT: 342 QTc: 397 Interpretive Statements ATRIAL FIBRILLATION Compared to ECG 04/18/2024 04:46:28 No significant changes Electronically Signed On 04-19-2024 18:57:13 CDT by Paul New M.D. [email or web address]
[2024-04-18 07:40] VITALS: BP 122/64; PULSE 85; RESP 14; O2SAT 97
[2024-04-18] MEDS: dilTIAZem ER (24HR) 120 mg Capsule PO (07:58)
[2024-04-18 08:05] VITALS: BP 114/75; PULSE 61; O2SAT 93
== END 2024-04-18 08:06 | disposition home or self-care (01) ==
PROVIDERS: Emergency Provider Emergency Medicine; PCP Nurse Practitioner Family
DX: R07.9 Chest pain, unspecified (principal); I48.91 Unspecified atrial fibrillation; Z79.82 Long term (current) use of aspirin; I25.10 Atherosclerotic heart disease of native coronary artery without angina pectoris; I25.2 Old myocardial infarction; E78.5 Hyperlipidemia, unspecified; Z86.73 Personal history of transient ischemic attack (TIA), and cerebral infarction without residual deficits
CPT/HCPCS: 71045; 80053; 83880; 84484; 85025; 85610; 85730; 93005; 96365; 96366; 96375; 99285; J3490

== ENCOUNTER → 2025-04-08 12:45 | Outpatient (BNVA) | payer SELFPAY | PROVIDERS: PCP Nurse Practitioner Family; Visit Provider Nurse Practitioner Family | DX: E78.2 Mixed hyperlipidemia (principal) | CPT/HCPCS: 80053; 80061; 83036 ==